=== PATIENT | female | born 1995 | race Caucasian/White ===

== ENCOUNTER 2020-10-05 13:22 | Observation (INO) | payer OTHER, SELFPAY ==
[2020-10-05 13:45] VITALS: TEMP 36.9; BMI 25.8
[2020-10-05 13:46] VITALS: BP 120/79; PULSE 107
[2020-10-05 14:54] LABS: Add Urine Microscopic? YES; Appearance Urine Clear (Clear); Bilirubin Urine Negative (Negative); Blood Urine Negative (Negative); Color Urine Straw (Yellow); Glucose Urine UA Negative (Negative); Ketones Urine Negative (Negative); Leukocyte Esterase Ur 1+ LEU/UL (Negative); Mucus Urine Rare /lpf; Nitrate Urine Negative (Negative); Protein Urine Negative (Negative); RBC Urine 0-2 /hpf (0-2); Specific Grav Ur 1.006 (1.001-1.035); Squamous Epithelial Cell Urine Few /hpf (Few); Urobilinogen Urine Negative mg/dL (<2.0); WBC Urine 0-3 /hpf
--- NOTE | 2020-10-05 16:59 | PC.NURSE ---
[id number] called, informed pt came in for possible leaking of fluid. ROM plus was negative, pt had contractions that spaced out drastically after PO hydration and urinating. UA is negative. Orders received to discharge pt home.
--- NOTE | 2020-10-05 18:25 | OBADM ---
This patient, Mirtha Woo, admitted to the OB room OB Post 115 for observation. Patient/family oriented to hospital policies and general routines including ID bracelet, bed and alarms, visiting hours, pain management, procedures, bathroom and other care routines, personal items, smoking policy, room service/diet, and visiting hours. Patient/Family are encouraged to report perceived risks to care and to ask questions if they do not understand what they are told or what they should do.
--- NOTE | 2020-10-31 19:04 | P.PNOB_ITS ---
OB - Triage/Final Diagnosis Visit Information Comments/Additional reasons for admission: I have assessed the risk for this patient, Mirtha Woo, and determined that she would benefit from observation care. Evaluation Laboratory results: Laboratory Tests 10/05/20 14:36 Urine Color Straw Urine Appearance Clear Urine pH 8.0 Ur Specific [place] 1.006 Urine Protein Negative Urine Glucose (UA) Negative Urine Ketones Negative Ur Blood (Man) Negative Urine Nitrate Negative Urine Bilirubin Negative Urine Urobilinogen Negative Leukocyte Esterase Rfl 1+ H Urine RBC 0-2 Urine WBC 0-3 Ur Squamous Epith Cells Few Urine Mucus Rare Final Diagnosis (1) Vaginal discharge during in third trimester: Code(s): O26.893 - Other specified related conditions, third trimester; N89.8 - Other specified noninflammatory disorders of vagina Status: Acute
== END 2020-10-05 16:35 | disposition home or self-care (01) ==
LOC: ANHOBOP 13:32 → ANHOBPP 13:32 → ANHOBOP 14:20 → ANHOBPP 14:20
PROVIDERS: Admitting Provider Obstetrics & Gynecology; PCP Internal Medicine; Visit Provider Obstetrics & Gynecology
DX: O26.893 Other specified pregnancy related conditions, third trimester (principal); N89.8 Other specified noninflammatory disorders of vagina; Z3A.33 33 weeks gestation of pregnancy
CPT/HCPCS: 81001; 84112; G0378; G0379

== ENCOUNTER 2020-10-31 17:10 | Outpatient (RCR) | payer OTHER, SELFPAY ==
[2020-10-31 18:42] VITALS: BP 111/69; PULSE 80
== END 2020-12-06 07:51 | disposition home or self-care (01) ==
LOC: ANHOBOP 17:10
PROVIDERS: PCP Internal Medicine; Referring Provider Obstetrics & Gynecology; Visit Provider Obstetrics & Gynecology
DX: O36.8130 Decreased fetal movements, third trimester, not applicable or unspecified (principal); Z3A.37 37 weeks gestation of pregnancy
CPT/HCPCS: 59025

== ENCOUNTER 2020-11-02 12:13 | Outpatient (CLI) | payer OTHER, SELFPAY ==
[2020-11-02 13:02] VITALS: BP 120/83; PULSE 105
== END 2020-11-02 13:15 | disposition home or self-care (01) ==
LOC: ANHOBOP 13:07 → ANHLDR 13:08
PROVIDERS: PCP Internal Medicine; Visit Provider Advanced Practice Midwife
DX: O42.02 Full-term premature rupture of membranes, onset of labor within 24 hours of rupture (principal); Z3A.37 37 weeks gestation of pregnancy
CPT/HCPCS: 59025; 84112; 99199

== ENCOUNTER 2020-11-06 19:39 | Inpatient (IN) | payer OTHER, SELFPAY ==
[2020-11-06] VITALS (17 sets, daily range): BP systolic 106–137; BP diastolic 61–99; PULSE 77–103; RESP 16–18; TEMP 36.6–36.9; BMI 27.4
--- NOTE | 2020-11-06 19:39 | LDADM ---
This patient, Mirtha Woo, was admitted to Labor/Delivery/Recovery 105 on 11/06/20 at 19:39. Plans for labor, pain management and were discussed with patient. Patient/family oriented to hospital policies and general routines including ID bracelet, bed and alarms, visiting hours, pain management, procedures, bathroom and other care routines, personal items, smoking policy, room service/diet and guest tray routines, infant security routines, and visiting hours. Patient/Family are encouraged to report perceived risks to care and to ask questions if they do not understand what they are told or what they should do. See OBIX for further documentation.
--- OUTSIDE RECORDS SUMMARY | 2020-11-06 20:13 | XMS_ITS | Encounter Summary ---
:1995 Author Care Team Providers Name Role Phone Pedro David Primary Care Provider [phone] Reason for Visit OB visit Assessment and Plan Assessment Note Patient is ___weeks . Discu ssed plan. 1. Routine care Discussion Note: None recorded.Patient educational handouts: No information available. Plan of Care Reminders Provider Appointments Ob Routine 11/11/2020 Meir Huddleston, 2:15PM CNM ? Ob Routine 11/15/2020 Rose Huddleston, 2:15PM CNM ? Ob Routine 11/22/2020 Rose Huddleston, 3:45PM CNM ? Well on or around Deb There se Woman-est 03/26/2021 MD Fuentes Lab None ? ? recorded. Referral None ? ? recorded. Procedures None ? ? recorded. Surgeries None ? ? recorded. Imaging None ? ? recorded. Medications Name Start Date ? ? ? valacyclovir 500 mg tablet ? Take 1 tablet every day by oral route. Medications Administered None recorded. Vitals Height Weight BMI Blood Pressure 5 ft 1 in 136 lbs 25.7 kg/m2 114/75 mm[Hg] Results Lab Results None recorded.
--- OUTSIDE RECORDS SUMMARY | 2020-11-06 20:13 | XMS_ITS | Encounter Summary ---
:1995 Author Care Team Providers Name Role Phone Pedro David Primary Care Provider [phone] Reason for Visit OB visit Assessment and [...] BMI Blood Pressure 5 ft 1 in 144 lbs 27.2 kg/m2 115/76 mm[Hg] Results Lab Results None recorded.
--- OUTSIDE RECORDS SUMMARY | 2020-11-06 20:13 | XMS_ITS | Encounter Summary ---
:1995 Author Care Team Providers Name Role Phone Pedro David Primary Care Provider [phone] Reason for Visit OB visit 37w5d Assessment and Plan 1. Routine care Discussion Note: None recorded.Patient educational handouts: No information available. Plan of Care Reminders Provider Appointments Ob Routine 11/11/2020 Meir Boykink, 2:15PM CNM ? Ob Routine 11/15/2020 Rose Panyik, 2:15PM CNM ? Ob Routine 11/22/2020 Rose Jensenyik, 3:45PM CNM ? Well on or around [...] BMI Blood Pressure 5 ft 1 in 149 lbs 28.2 kg/m2 118/79 mm[Hg] Results Lab Results None recorded. Allergies Code Code System Name Reaction Severity Onset
--- OUTSIDE RECORDS SUMMARY | 2020-11-06 20:13 | XMS_ITS ---
:1995 Author Care Team Providers Name Role Phone HANK VASQUEZ Primary Care Provider [phone] Allergies Code Code System Name Reaction Severity Status Onset NKDA ? Medications Name Status Start Date Stop Date ? ? alprazolam 0.25 mg tablet Completed ? 2020 TK 1 T PO BID PRN alprazolam 0.5 mg tablet Completed ? TAKE 1 TABLET BY MOUTH TWICE DAILY NEEDED azithromycin 250 mg tablet Completed ? 09/27 azithromycin 500 mg tablet Completed ? 06/11 TAKE 2 TABLETS BY MOUTH AT THE SAME TIME cephalexin 500 mg capsule Completed ? 2020 cyclobenzaprine 5 mg tablet Completed ? 03/06 dextroamphetamine-amphetamine 20 mg tablet Completed ? 03/26/2020 TK 1 TABSULE ONCE A DAY dextroamphetamine-amphetamine ER 20 mg 24hr capsule,extend relea se Completed ? 03/26/2020 TK 1 C PO ONCE D IN THE MORNING fluconazole 150 mg tablet Completed ? 2020 TAKE 1 TABLET BY MOUTH EVERY DAY gabapentin Completed ? 03/26/2020 gabapentin 100 mg capsule Completed ? 2020 ID NOW COVID-19 Test Kit Completed ? TEST DIRECTED lithium carbonate ER 300 mg tablet,extended release Completed ? 03/26/2020 TK 1 T PO IN THE MORNING AND 2 TS PO IN THE EVENING Lithobid Completed ? 03/26/2020 medroxyprogesterone 150 mg/mL Completed ? intramuscular syringe metaxalone 800 mg tablet Completed ? metoclopra
--- OUTSIDE RECORDS SUMMARY | 2020-11-06 20:13 | XMS_ITS | Encounter Summary ---
:1995 Author Care Team Providers Name Role Phone Pedro David Primary Care Provider [phone] Reason for Visit None recorded. Assessment and Plan 1. condition affecting obs tetrical care of mother ? US, obstetric, follow-up Discussion Note: None recorded.Patient educational handouts: No information available. Plan of Care Reminders Provider Appointments Ob Routine 11/11/2020 Meir Huddleston, 2:15PM CNM ? Ob Routine 11/15/2020 Rose Boykink, 2:15PM CNM ? Ob Routine 11/22/2020 Rose Boykink, 3:45PM CNM ? Well on or around Deb There se Woman-est 03/26/2021 MD Fuentes Lab None ? ? recorded. Referral None ? ? recorded. Procedures None ? ? recorded. Surgeries None ? ? recorded. Imaging US, 08/26/2020 [facility], Follow-up Medications Name Start Date ? ? ? valacyclovir 500 mg tablet ? Take 1 tablet every day by oral route. Medications Administered None recorded. Vitals None recorded. Results Lab Results None recorded. Allergies Code Code System Name Reaction Severity Onset
--- OUTSIDE RECORDS SUMMARY | 2020-11-06 20:13 | XMS_ITS | Encounter Summary ---
:1995 Author Care Team Providers Name Role Phone Pedro David Primary Care Provider [phone] Reason for Visit OB visit pt is here today for 32 week ob visit. Assessment and Plan Assessment Note Patient is ___weeks . Discu ssed plan. 1. Genital herpes simplex ? Valtrex 500 mg tablet Discussion Note: None recorded.Patient educational handouts: No [...] BMI Blood Pressure 5 ft 1 in 141 lbs 26.6 kg/m2 106/70
--- OUTSIDE RECORDS SUMMARY | 2020-11-06 20:13 | XMS_ITS | Encounter Summary ---
:1995 Author Care Team Providers Name Role Phone Pedro David Primary Care Provider [phone] Reason for Visit OB visit GBS today 36w4d Assessment and Plan 1. Routine care Discussion Note: None recorded.Patient educational handouts: No information available. Plan of Care Reminders Provider Appointments Ob Routine 11/11/2020 Meir Huddleston, 2:15PM CNM ? Ob Routine 11/15/2020 Rose Jensenyik, 2:15PM CNM ? Ob Routine 11/22/2020 Rose [...] BMI Blood Pressure 5 ft 1 in 147 lbs 27.8 kg/m2 107/72 mm[Hg] Results Lab Results None recorded. Allergies Code Code System Name Reaction Severity Onset
--- OUTSIDE RECORDS SUMMARY | 2020-11-06 20:13 | XMS_ITS | Encounter Summary ---
:1995 Author Care Team Providers Name Role Phone Pedro David Primary Care Provider [phone] Reason for Visit OB visit Assessment and [...] BMI Blood Pressure 5 ft 1 in 139 lbs 26.3 kg/m2 100/67 mm[Hg] Results Lab Results None recorded.
[2020-11-06] MEDS: LACTATED RINGERS 1,000 ML 125 ML IV CONT (21:11)
[2020-11-06] MEDS: OXYTOCIN 30 UNITS/NS 500 ML 30 UNITS/500 ML BAG 6 UNITS IV CONT (21:12)
[2020-11-06 21:15] LABS: Basophils Percent Auto 0.3 % (0.2-1.2); Eosinophils Absolute Auto 0.1 K/mm3 (0-0.3); Eosinophils Percent Auto 0.8 % (0-4.4); Hematocrit 38.1 % (37.0-47.0); Hemoglobin 12.2 g/dL (12.0-15.0); Immature Granulocyte Absolute 0.06 K/mm3 (0.00-0.031); Immature Granulocyte Percent A 0.6 % (0-0.5); Lymphocytes Absolute Auto 1.95 K/mm3 (0.9-3.2); Lymphocytes Percent Auto 18.5 % (18.3-44.2); Mean Corpuscular Hemoglobin 26.1 pg (26-34); Mean Corpuscular Volume 81.4 fl (80-100); Mean Platelet Volume 10.9 fl (7.4-10.4); Monocytes Percent Auto 9.8 % (2.6-8.5); Neutrophils Absolute Auto 7.4 K/mm3 (1.3-6.7); Platelet Count Result 233 k/mm3 (150-375); Red Blood Count 4.68 M/mm3 (4.2-5.4); Red Cell Distribution Width 13.2 % (11.5-14.5); White Blood Count 10.5 K/mm3 (4.5-10.0)
[2020-11-06 23:45] LABS: Amphetamine Screen Urine Negative (Negative); Barbiturate Screen Urine Negative (Negative); Benzodiazepines Screen Urine Negative (Negative); Cannabinoid Screen Urine Negative (Negative); Cocaine Screen Urine Negative (Negative); Methadone Screen Urine Negative (Negative); Opiate Screen Urine Negative (Negative); Phencyclidine Screen Urine Negative (Negative)
[2020-11-07] VITALS (165 sets, daily range): BP systolic 86–135; BP diastolic 25–88; PULSE 47–196; RESP 14–18; TEMP 36.2–37.1; O2SAT 82–100
[2020-11-07] MEDS: fentaNYL CITRATE INJ (*CRX) 100 MCG/2 ML VIAL 50 MCG IV PUSH (03:38)
[2020-11-07] MEDS: fentaNYL CITRATE INJ (*CRX) 100 MCG/2 ML VIAL IV PUSH (04:39)
[2020-11-07] MEDS: LACTATED RINGERS 1,000 ML 125 ML IV CONT ×2 (05:05→08:56)
--- NOTE | 2020-11-07 06:21 | WPDANESEPP ---
Anes - Eval Pre Procedure Procedure: labor epidural Date/Time: 11/07/20 06:21 Surgeon: sherly Preop Diagnosis: pain during labor Pre Op Diagnosis: ROM Patient Data Age: 24 Gender: F Height: 1.57 m Weight: 68.1 kg Last Vital Signs Temp 36.8 C 11/07/20 05:44 Pulse 82 11/07/20 06:18 Resp 18 11/07/20 05:44 BP 122/77 11/07/20 06:18 Pulse Ox 96 11/07/20 06:20 Allergies Allergy/AdvReac Type Severity Reaction Status Date / Time No Known Allergies Allergy Unverified 10/27/17 16:40 Home Medications Medication Instructions Recorded Confirmed Type PNV cmb#95-ferrous fumarate-FA 1 tablet PO DAILY 10/18/20 10/18/20 History [] valacyclovir [Valtrex] 500 mg PO DAILY 10/18/20 10/18/20 History Laboratory Tests 11/06/20 11/06/20 11/06/20 21:02 21:02 21:02 WBC 10.5 K/mm3 H K/mm3 (4.5-10.0) RBC 4.68 M/mm3 M/mm3 (4.2-5.4) Hgb 12.2 g/dL g/dL (12.0-15.0) Hct 38.1 % % (37.0-47.0) MCV 81.4 fl fl (80-100) MCH 26.1 pg pg (26-34) MCHC 32.0 g/dl g/dl (32-36) RDW 13.2 % % (11.5-14.5) Plt Count 233 k/mm3 k/mm3 (150-375) MPV 10.9 fl H fl (7.4-10.4) Immature Gran % (Auto) 0.6 % H % (0-0.5) Neut % (Auto) 70.0 % % (45.5-73.1) Lymph % (Auto) 18.5 % % (18.3-44.2) [place] % (Auto) 9.8 % H % (2.6-8.5) Eos % (Auto) 0.8 % % (0-4.4) Baso % (Auto) 0.3 % % (0.2-1.2) Lymph # (Auto) 1.95 K/mm3 K/mm3 (0.9-3.2) [place] # (Auto) 1.0 K/mm3 H K/mm3 (0.1-0.6) Eos # (Auto) 0.1 K/mm3 K/mm3 (0-0.3) Baso # (Auto) 0.0 K/mm3 K/mm3 (0.0-0.1) Abs Immat Gran (auto) 0.06 K/mm3 H K/mm3 (0.00-0.031) Absolute Neuts (auto) 7.4 K/mm3 H K/mm3 (1.3-6.7) Absolute Nucleated RBC 0.0 K/mm3 K/mm3 (0.0-0.012) Nucleated RBC % 0.0 % % (0.0-0.2) Urine Opiates Screen Urine Methadone Screen Ur Barbiturates Screen Ur Phencyclidine Scrn Ur Amphetamine Screen U Benzodiazepines Scrn Urine Cocaine Screen U Cannabinoids Screen RPR Pending Blood Type A Positive Antibody Screen Negative 11/06/20 23:19 WBC RBC Hgb Hct MCV MCH MCHC RDW Plt Count MPV Immature Gran % (Auto) Neut % (Auto) Lymph % (Auto) [place] % (Auto) Eos % (Auto) Baso % (Auto) Lymph # (Auto) [place] # (Auto) Eos # (Auto) Baso # (Auto) Abs Immat Gran (auto) Absolute Neuts (auto) Absolute Nucleated RBC Nucleated RBC % Urine Opiates Screen Negative (Negative) Urine Methadone Screen Negative (Negative) Ur Barbiturates Screen Negative (Negative) Ur Phencyclidine Scrn Negative (Negative) Ur Amphetamine Screen Negative (Negative) U Benzodiazepines Scrn Negative (Negative) Urine Cocaine Screen Negative (Negative) U Cannabinoids Screen Negative (Negative) RPR Blood Type Antibody Screen Patient hx anesthesia problems: none Family hx anesthesia problems: none PMFSH Past Medical History Medical History (Updated 11/07/20 @ 06:22 by Ann Tabor CRNA) Intrauterine Family History Family History Other No pertinent family history Social History Social History Smoking status: Former smoker Substance use: never Gender identity (if verbalized by the patient): Female Spiritual care concerns: No Exam Day of Procedure 11/07/20 06:21
[2020-11-07] MEDS: AMPICILLIN 2 GM/NS 100 ML 2 GM/100 ML BAG IVPB (08:56)
[2020-11-07] MEDS: ONDANSETRON INJ 4 MG/2 ML VIAL IV PUSH (08:56)
[2020-11-07] MEDS: valACYclovir HCL 500 MG TABLET PO (08:59)
--- NOTE | 2020-11-07 09:45 | WPDOBADMIT ---
Obstetrics - Admit Note Admission Note: record reviewed. No pertinent additions to the history and/or any subsequent changes in the physical findings that are not consistent with the expected course of the were found. SROM at home Additions to the history and/or subsequent changes in the physical findings follow. None.
[2020-11-07] MEDS: AMPICILLIN 1 GM/NS 50 ML 1 GM/50 ML BAG IVPB (13:14)
--- NOTE | 2020-11-07 13:52 | PM.OBPRVD ---
OB - Delivery Note Procedure Delivery date: 11/07/20 Procedure: vaginal delivery events: Prolonged Rupture of Membrane Intrapartal events: None Induction method: none Delivery augmentation: pitocin Delivery monitor: external FHT and external uterine Route of delivery: Laceration Description: Perineal - 1st Degree Delivery repair: vicryl Specimen: Yes Quantitative Blood Loss (ml): 80 Anesthesia type: Epidural Disposition: floor Baby Date of : 11/07/20 Time of : 13:34 Weeks of gestation at delivery: 38 Infant gender: Female Weight (pounds): 7 Weight (ounces): 13 presentation: vertex position: Left Occiput Transverse Placenta delivery description: Spontaneous cord vessel description: 3 Vessels, Clamped/Cut and Delayed Cord Clamping score one minute: 9 score five minutes: 9 Narrative: mother and baby skin to skin in stable condition
[2020-11-07] MEDS: BENZOCAINE 20% AER SPR (*SP) 56 GM CAN 1 SPRAY TOPICAL (16:20)
[2020-11-07] MEDS: WITCH HAZEL 40 PADS 1 PAD TOPICAL (16:20)
[2020-11-07] MEDS: IBUPROFEN 600 MG TABLET PO ×2 (16:23→23:25)
--- NOTE | 2020-11-07 18:30 | PC.NURSE ---
Patient's IV bag of Oxytocin 30 units/Ns 500 mL @ 125 ml/hr was finished at 1830 and the patient was saline locked. This bag was not scanned in the MAR after her delivery so I was unable to chart the completion of the infusion in the MAR.
[2020-11-07] MEDS: ACETAMINOPHEN 325 MG TABLET 650 MG PO (21:50)
[2020-11-08 04:04] VITALS: BP 101/56; PULSE 62; RESP 16; TEMP 36.1; O2SAT 100
[2020-11-08 05:16] LABS: Hematocrit 33.2 % (37.0-47.0); Hemoglobin 10.6 g/dL (12.0-15.0)
[2020-11-08] MEDS: IBUPROFEN 600 MG TABLET PO ×3 (05:42→18:52)
[2020-11-08 08:05] VITALS: BP 107/71; PULSE 78; RESP 18; TEMP 37; O2SAT 100
[2020-11-08 09:00] VITALS: PULSE 78; RESP 18; O2SAT 100
[2020-11-08] MEDS: valACYclovir HCL 500 MG TABLET PO (09:00)
--- NOTE | 2020-11-08 09:15 | PC.NURSE ---
Mother called out for assist with feeding, reporting she is using a nipple shield for all feeding due to flat nipples. Mother is supplementing after all feeding and pumping using her pump from home. Mother reports she is not pumping after all feedings. is able to freely thrust tongue past gum ridge and flange both lips. Skin is intact on both nipples, no redness and bruising noted. Discussed nipple shield precautions and possible complications. Instructions given on application and cleaning of shield. Patient able to return demonstration on proper application of shield. Discussed the need for regular pumping if infant continues to nurse with the shield, once infant is able to gain weight and empty breast pumping can be discontinued. Patient verbalizes understanding. Reviewed weaning techniques from shield. Reviewed infant feeding cues, frequencies, duration of feedings, feeding elimination flow sheet, and signs of adequate intake. Mother is attempting infant to breast in cradle positioning, wrapped in two blankets. Suggested to unwrap and attempt using cross cradle. Demonstrated stimulation techniques to wake infant for feeding. Assisted with infant to breast. Reviewed positioning/alignment in cross cradle, holding breast in ?U? hold and guided asymmetrical latch on. Discussed rational for each. able to latch correctly. Reviewed signs of a correct latch, effective nursing and suck swallow ratio. Infant nursed eagerly, with steady draws and frequent swallowing noted. Reviewed the difference of effective vs ineffective nursing. Suggested mother stimulate while feeding to increase stimulation, increase intake and to assist with maintaining deep latch. Infant was able to maintain latch without discomfort to mother. Demonstrated how to adjust latch more deeply while feeding if slips to shallow latch while feeding. Nipple care reviewed of lanolin after feedings, warm compresses as needed.
--- NOTE | 2020-11-08 09:34 | P.PNOB_ITS ---
OB - PN: Subj Subjective Date/time seen: 11/08/20 09:34 Patient comments: no complaints baby status: doing well [place] feeding status: breast and bottle feeding OB - PN: Obj Data Labs CBC & Chem 7: 11/08/20 03:38 Labs: Laboratory Results - last 24 hr 11/08/20 03:38 Hgb 10.6 L Hct 33.2 L OB - PN A/P Plan day: 1 Plan: routine care Time Spent With Patient Time: Total time spent is greater than 50% in coordination of care (as documented) at patient's floor/unit and/or counseling patient: Review of Systems Review of Systems: All systems reviewed & are unremarkable except as noted in HPI and below Exam Const: General: cooperative and healthy appearing Or ientation/consciousness: patient oriented x3 Psych: Thought process: Normal thought process present Insight: Good insight present (Psych) Judgement: Good judgement present (Psych)
[2020-11-08 12:01] VITALS: BP 111/63; PULSE 94; RESP 18; TEMP 36.6; O2SAT 100
[2020-11-08] MEDS: MULTIVIT/MIN/PREN/FOL AC/IRON TABLET 1 TAB PO (12:23)
[2020-11-08] MEDS: DOCUSATE SODIUM 100 MG CAPSULE PO ×2 (12:23→17:16)
[2020-11-08 12:49] VITALS: PULSE 94; RESP 18; O2SAT 100
[2020-11-08] MEDS: ACETAMINOPHEN 325 MG TABLET 650 MG PO (17:16)
[2020-11-08 19:05] VITALS: BP 98/69; PULSE 66; RESP 16; TEMP 36.7; O2SAT 100
[2020-11-09] MEDS: ACETAMINOPHEN 325 MG TABLET 650 MG PO (01:59)
--- NOTE | 2020-11-09 07:34 | P.DS_ITS ---
DS: Admitting Diagnosis Admitting Diagnosis labor DS: Discharge Diagnosis Discharge Diagnosis (1) Term delivered: Code(s): O80 - Encounter for full-term uncomplicated delivery Status: Acute OB - DS: Summary OB Procedures : None OB Procedures Intrapartum: Spontaneous Vag Delivery OB Procedures: : None Time Spent with Patient Time attestation: Total time spent providing and/or coordinating discharge se rvices: DS: Data Data Completed and Pending Pending studies at discharge: Pending at discharge 11/07/20 13:40 Surgical [PTH] Routine Discharge Plan Discharge Discharging Clinician: Berenice Marcus Patient Disposition: Home, Self-Care Activity: pelvic rest Diet: regular Patient Instructions: Antibiotic Form Stand Alone Forms: General Discharge Information Follow-up/Referrals: Berenice Marcus MD [Physician] - Discharge Medications: Continued valacyclovir [Valtrex] 500 mg Tablet 500 mg PO DAILY RF: 0 PNV cmb#95-ferrous fumarate-FA [] 28 mg iron- 800 mcg Tablet 1 tablet PO DAILY RF: 0 Date of admission: 11/06/20 19:39 Primary Care Provider: Frankie,Pedro Hoff Admitting Provider: Berenice Marcus Attending physician on admission: Berenice Marcus Condition: Stable
--- NOTE | 2020-11-09 07:34 | PM.OBPNVD ---
OB - PN: Subj Subjective Date/time seen: 11/09/20 07:34 Patient comments: no complaints, pain well controlled and tolerating diet OB - PN: Obj Data Labs CBC & Chem 7: 11/08/20 03:38 OB - PN A/P Plan day: 2 Plan: routine care and discharge home Time Spent With Patient Time: Total time spent is greater than 50% in coordination of care (as documented) at patient's floor/unit and/or counseling patient: Exam Const: General: comfortable and no acute distress Resp: Effort & Inspection: normal respiratory effort Auscultation: no rales, no rhonchi and no wheezes Cardio: Rate: regular rate Heart sounds: no click, no murmurs and no rubs GI: GI Palp: Yes Soft to palpation and No Tenderness to palpation present (GI) Auscultation: normal bowel sounds Extrem: General: normal to inspection, no pedal edema and no calf tenderness
[2020-11-09 07:50] VITALS: BP 112/76; PULSE 75; RESP 16; TEMP 37.2; O2SAT 100
[2020-11-09] MEDS: IBUPROFEN 600 MG TABLET PO (10:02)
[2020-11-09] MEDS: MULTIVIT/MIN/PREN/FOL AC/IRON TABLET 1 TAB PO (10:02)
[2020-11-09] MEDS: DOCUSATE SODIUM 100 MG CAPSULE PO (10:03)
[2020-11-09] MEDS: valACYclovir HCL 500 MG TABLET PO (10:07)
[2020-11-09 10:30] LABS: Rapid Plasma Reagin Non-Reactive (NonReactive)
--- NOTE | 2020-11-09 10:30 | PC.NURSE ---
Mother is able to independently latch with appropriate positioning/alignment using nipple shield. She denies any nipple discomfort, is feeding as required and waking to feed if needed. Infant is feeding as required with supplementation after all feedings and and is currently meeting outcomes for weight, output, jaundice and feeding frequencies. Mother states she feels confident to continue current feeding plan at home. Mother is pumping using her own pump, advised to pump after each feeding until her milk well established. Discussed may wish to increase supplementation after , advised to increase as infant desires. Infant may not want to feed for 4 hours with increased supplementation, mother will pump on infant feeding schedule increasing sessions to 20 minutes if pumping every four hours. Once mother's milk is well established may want to decrease supplementation, advised not to discontinue supplement until infant has a pre post feeding evaluation by ICP, Follow up RN or LC. Mother voices understanding and rational. Reviewed shield use, cleaning and weaning techniques. Reviewed once infant is effectively using shield and gaining weight without supplementation, mother can wean pumping. Reviewed transition to breast milk, signs of adequate intake, and engorgement/relief. Instructed to call ICP if intake/output less than required. Reviewed regular medications mother is taking. Information provided per [place]. Reviewed community resources on the [facility] website and in the Mom/Baby guide. Information on outpatient services provided. Mother has no further questions at this time.
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
[2020-11-11 12:06] VITALS: BP 121/82; PULSE 90; RESP 20; TEMP 37.2; O2SAT 100
== END 2020-11-09 14:06 | disposition home or self-care (01) | DRG 806 ==
LOC: ANHLDR 20:24 → ANHOB2 11-07 17:40
PROVIDERS: Admitting Provider Obstetrics & Gynecology; PCP Internal Medicine; Referring Provider Advanced Practice Midwife; Visit Provider Obstetrics & Gynecology
DX: O42.92 Full-term premature rupture of membranes, unspecified as to length of time between rupture and onset of labor (principal); O98.32 Other infections with a predominantly sexual mode of transmission complicating childbirth; Z37.0 Single live birth; Z3A.38 38 weeks gestation of pregnancy; O70.0 First degree perineal laceration during delivery; A60.00 Herpesviral infection of urogenital system, unspecified; Z87.820 Personal history of traumatic brain injury; Z91.410 Personal history of adult physical and sexual abuse; O99.344 Other mental disorders complicating childbirth; F31.9 Bipolar disorder, unspecified; A56.8 Sexually transmitted chlamydial infection of other sites
CPT/HCPCS: 36415; 80307; 84112; 85014; 85018; 85025; 86592; 86850; 86900; 86901; 88307; A9270; J0290; J2405; J2590; J3010; J7120

== ENCOUNTER 2022-08-07 10:05 | Emergency (ER) | payer OTHER, SELFPAY ==
--- NOTE | ~2022-08-07 | XR_ITS ---
Left ankle Technique: AP, oblique, and lateral views were obtained. Clinical History: Pain Findings: No acute fracture or dislocation is seen. Osseous alignment is anatomic. Ankle mortise and other visualized joint spaces are preserved. Soft tissues are otherwise unremarkable. Impression: Unremarkable left ankle. Reviewed, dictated and finalized at location . Impression: Unremarkable left ankle.
[2022-08-07 10:26] VITALS: BP 110/55; PULSE 78; RESP 16; TEMP 36.2; O2SAT 100
--- NOTE | 2022-08-07 11:07 | ED.LOWEXIN ---
HPI - Extremity Injury (Lower) General Chief Complaint: Extremity Injury, Lower Stated Complaint: left ankle injury Time Seen by Provider: 08/07/22 10:55 History of Present Illness HPI Narrative: 26-year-old female reports for evaluation of left ankle pain x1 day. Patient says she was getting at the pool, misstepped and rolled her left ankle. States since then she has had worsening pain at the top of her ankle. She denies other injuries during the fall. Did not hit her head or lose consciousness. She has not taken anything for pain. Related Data Home Medications Medication Instructions Recorded Confirmed ferrous sulfate 325 mg (65 mg 325 mg PO DAILY 06/23/22 06/23/22 iron) tablet (Iron (ferrous sulfate)) Allergies Allergy/AdvReac Type Severity Reaction Status Date / Time cephalexin [From Keflex] AdvReac Mild Unknown Verified 08/07/22 11:00 Review of Systems Review of Systems: CONSTITUTIONAL: Denies fever, chills EYES: Denies visual changes, redness, or discharge. ENT: Denies rhinorrhea, congestion, sore throat, or otalgia. CARDIOVASCULAR: Denies chest pain, palpitations, or edema. RESPIRATORY: Denies cough or dyspnea. GASTROINTESTINAL: Denies abdominal pain, nausea, vomiting, or diarrhea. GENITOURINARY: Denies dysuria or hematuria. SKIN: Denies rash or itching. MUSCULOSKELETAL: See HPI NEUROLOGIC: Denies headache, numbness, dizziness, or weakness. PSYCHIATRIC: Denies anxiety or depression. [facility] Past Medical History Medical History ADD (attention deficit disorder) Bipolar 1 disorder Intrauterine Term delivered Vaginal discharge during in third trimester Family History Family History Other No pertinent family history Social History Social History Years smoked: 1 Smoking status: Former smoker Tobacco type: cigarettes Alcohol intake: current Alcohol use details: occasional Substance use: never Substance use type: does not use Lack of Transportation: No Lack of Food: Never True Current Housing: I Have Housing Concerned About Future Housing: No Difficulty Paying Gas/Electric Bills: No Difficulty Paying for Meds: No Currently Unemployed: No Education: Trade/Vocational Certificate Difficulty w/ Childcare or Family Care: No Living arrangements: with family Occupation/Education: occupation 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 HEAD: Normocephalic NECK: Supple. CHEST: No respiratory distress. Clear to auscultation, no adventitious breath sounds. HEART: Regular rate and rhythm. No murmur heard. Normal peripheral pulses. EXTREMITIES: Left ankle with tenderness to the superior aspect of the ankle. No tenderness to the malleoli, Achilles, foot. Full range of motion of ankle and toes. No edema or ecchymosis. DP pulse 2+. Cap fill refill less than 2. Sensation intact. SKIN: Warm, dry, no rash. NEURO: No focal deficits. Alert and oriented x3. PSYCH: Normal mood and affect. Course Vital Signs Vital signs: Vital Signs Temperature 97.2 F L 08/07/22 10:26 Pulse Rate 78 08/07/22 10:26 Respiratory Rate 16 08/07/22 10:26 Blood Pressure 110/55 L 08/07/22 10:26 Pulse Oximetry 100 08/07/22 10:26 Temperature 97.2 F L 08/07/22 10:26 Pulse Rate 78 08/07/22 10:26 Respiratory Rate 16 08/07/22 10:26 Blood Pressure 110/55 L 08/07/22 10:26 Pulse Oximetry 100 08/07/22 10:26 MDM - Extremity Injury (Lower) MDM Narrative Medical decision making narrative: 26-year-old female repor
[2022-08-07 11:25] VITALS: BP 110/60; PULSE 80; RESP 16; TEMP 36.6; O2SAT 100
== END 2022-08-07 11:28 | disposition home or self-care (01) ==
LOC: ANHED 11:18
PROVIDERS: Emergency Provider Physician Assistant; PCP Physician Assistant Medical
DX: S93.402A Sprain of unspecified ligament of left ankle, initial encounter (principal); S96.912A Strain of unspecified muscle and tendon at ankle and foot level, left foot, initial encounter; X50.0XXA Overexertion from strenuous movement or load, initial encounter; Z87.891 Personal history of nicotine dependence
CPT/HCPCS: 73610; 99283

== ENCOUNTER 2022-10-29 15:32 | Emergency (ER) | payer BC, SELFPAY ==
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
[2022-10-29 15:34] VITALS: BP 131/79; PULSE 92; RESP 18; TEMP 36.4; O2SAT 99
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
[2022-10-29] MEDS: CYCLOBENZAPRINE HCL 5 MG TABLET 10 MG PO (17:02)
[2022-10-29] MEDS: ACETAMINOPHEN 500 MG TABLET 1000 MG PO (17:03)
== END 2022-10-29 18:46 | disposition home or self-care (01) ==
PROVIDERS: Emergency Provider Emergency Medicine; PCP Physician Assistant Medical
DX: S09.90XA Unspecified injury of head, initial encounter (principal); M54.2 Cervicalgia; Z87.891 Personal history of nicotine dependence; Y04.2XXA Assault by strike against or bumped into by another person, initial encounter
CPT/HCPCS: 70450; 72125; 99284; A9270

== ENCOUNTER 2024-03-22 09:25 | Observation (INO) | payer BC, SELFPAY ==
--- NOTE | ~2024-03-22 | US_ITS ---
EXAMINATION: US OB limited DATE: 03/22/2024 11:37 INDICATION: Spotting. Second trimester. TECHNIQUE: Real-time ultrasound of the pelvis was performed. COMPARISON: None. FINDINGS: There is a single fetus in vertex presentation. The placenta is posterior. heart rate is 141 b eats per minute (bpm). The amniotic fluid volume is subjectively normal. IMPRESSION: 1. Single living fetus in vertex presentation. Reviewed, dictated and finalized at location A. 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
[2024-03-22 10:05] VITALS: BP 95/58; PULSE 79; RESP 16; TEMP 36.3; BMI 25.6
--- NOTE | 2024-03-22 10:06 | OBADM ---
This patient, Mirtha Woo, admitted to the OB room 116 for observation. Patient/family oriented to hospital policies and general routines including ID bracelet, bed and alarms, visiting hours, pain management, procedures, bathroom and other care routines, personal items, smoking policy, room service/diet, and visiting hours. Patient/Family are encouraged to report perceived risks to care and to ask questions if they do not understand what they are told or what they should do.
[2024-03-22 10:30] VITALS: BP 109/67; PULSE 84
[2024-03-22 11:00] VITALS: BP 100/60; PULSE 76
[2024-03-22 11:01] LABS: Add Urine Microscopic? YES; Appearance Urine Clear (Clear); Bacteria Urine None Seen /hpf; Bilirubin Urine Negative (Negative); Blood Urine 2+ (Negative); Color Urine Yellow (Yellow); Glucose Urine UA Negative (Negative); Ketones Urine Negative (Negative); Leukocyte Esterase Ur Negative LEU/UL (Negative); Nitrate Urine Negative (Negative); Non Pathogenic Casts 0-2; Protein Urine Negative (Negative); Squamous Epithelial Cell Urine None Seen /hpf (Few); Urobilinogen Urine 0.2 mg/dL (<2.0); WBC Urine 0-5 /hpf (0-3)
--- NOTE | 2024-03-22 11:21 | P.HP_ITS ---
H&P: HPI History of Present Illness Date/Time: 03/22/24 11:21 Chief Complaint: Vaginal bleeding Narrative: this patient is a 28-year-old multiparous female at 24 weeks gestation who postcoital bleeding episode. She denies any contractions, loss of fluid. She had some light bleeding. Greater than spotting. She denies any nausea, vomiting, fever, chills. She denies any chest pain or shortness of breath. Denies any headache, blurry vision, epigastric pain. Review of Systems Review of Systems: All systems reviewed & are unremarkable except as noted in HPI and below Constitutional: Constitutional: Denies chills, Denies fatigue, Denies fever(s) and Denies weakness Eyes: Eyes: Denies blurry vision, Denies change in vision, Denies loss of peripheral vision, Denies loss of vision, Denies other visual disturbances and Denies eye pain ENT: Denies vertigo, Denies dizziness, Denies hearing loss, Denies mouth pain, Denies nasal obstruction, Denies neck mass and Denies neck pain Cardiovascular: Cardiovascular: Denies chest pain, Denies diaphoresis, Denies syncope, Denies leg edema and Denies dyspnea Respiratory: Respiratory: Denies chest congestion, Denies cough, Denies hemoptysis, Denies dyspnea and Denies wheezing Gastrointestinal: Gastrointestinal: Denies abdominal pain, Denies constipation, Denies diarrhea, Denies nausea and Denies vomiting Genitourinary: Genitourinary: Denies hematuria, Denies change in libido, Denies nocturia, Denies genital lesions, Denies flank pain and Denies urinary urgency Musculoskeletal: Musculoskeletal: Denies abnormal gait, Denies back pain, Denies myalgias, Denies arthralgias, Denies joint swelling, Denies muscle weakness and Denies neck pain Integumentary/Breasts: Skin/Breast: Denies swelling, Denies breast pain, Denies breast mass, Denies dry skin, Denies nipple discharge, Denies unusual bruising and Denies jaundice Neurologic: Denies Neuro-related abnormal movements, Denies Abnormal speech present, Denies abnormal gait, Denies behavioral changes, Denies confusion, Denies vertigo, Denies dizziness, Denies syncope, Denies loss of vision, Denies memory loss, Denies convulsions and Denies weakness Psychiatric: Psychiatric: Denies abnormal sleep pattern, Denies behavioral changes, Denies change in libido, Denies confusion, Denies depression, Denies anhedonia and Denies memory loss Endocrine: Endocrine: Reports no additional endocrine complaints, Denies change in libido and Denies fatigue Hematologic/Lymphatic: Hematologic/Lymphatic: Reports no additional hematologic/lymphatic complaints Allergic/Immunologic: Allergic/Immunologic: Reports no additional al lergic/immunologic complaints and Denies wheezing PMFSH Past Medical History Medical History Encephalomalacia Herpes simplex Bipolar 1 disorder ADD (attention deficit disorder) Term delivered Intrauterine Vaginal discharge during in third trimester Surgical History Surgical History No pertinent past surgical history Family History Family History Other No pertinent family history Social History Social History Years smoked: 1 Smoking status: Former smoker Tobacco type: cigarettes Alcohol intake: current Alcohol use details: occasional Substance use: never Substance use type: does not use Lack of Transportation: No Lack of Food: Never True Current Housing: I Have Housing Concerned About Future Housing: No Difficulty Paying Gas/Electric Bills: No Difficulty Paying for Meds: No Currently Unemployed: No Education: Trade/Vocational Certificate Difficulty w/ Childcare or Family Care: No Living arrangements: with family Occupation/Education: occupation 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 Gender identity (if verbalized by the patient): Female Sexual Orientation (if Verbalized by the Patient): Straight or Heterosexual Spiritual care concerns: No Meds Home Medications and Allergies Home Medications ?Medication ?Instructions ?Recorded ?Confirmed ?Type ferrous sulfate 325 mg (65 mg 325 mg PO DAILY 06/23/22 03/22/24 History iron) tablet (Iron (ferrous sulfate)) valacyclovir 500 mg tablet 500 mg PO DAILY #90 tabs 11/24/22 03/22/24 Rx vit no.95-ferrous 1 tablet PO DAILY 03/22/24 03/22/24 History fumarate 28 mg-folic acid 800 mcg tablet () Allergies Allergy/AdvReac Type Severity Reaction Status Date / Time cephalexin (From Keflex) AdvReac Mild Unknown Verified 03/22/24 09:49 Vital Signs Vital Signs - 24 hr 03/22/24 10:05 03/22/24 10:05 03/22/24 10:30 Pulse Rate 79 84 Blood Pressure 95/58 L 109/67 Oxygen Delivery Room Air 03/22/24 11:00 Pulse Rate 76 Blood Pressure 100/60 Oxygen Delivery Exam Const: General: cooperative, healthy appearing, comfortable and no acute distress Orientation/consciousness: oriented to person, oriented to place and oriented to time HENMT: Head: normal to inspection Ears: external ears normal Face/Nos e/Sinus: Normal external nose present and normal facial exam Face and sinus: normal facial exam Eyes: General: appearance normal, both eyes and all related structures Neck: Neck: normal visual inspection, trachea midline and supple Resp: Auscultation: clear to auscultation bilaterally, no crackles, no rales, no rhonchi and no wheezes Cardio: Rate: regular rate Rhythm: regular rhythm Heart sounds: no click, no murmurs and no rubs GI: GI Palp: No abdominal tenderness, No Soft to palpation, No Tenderness to palpation present (GI) and No Palpable mass present Auscultation: normal bowel sounds Skin: General skin exam: normal color and no rashes or lesions noted Neuro: General: oriented to person, oriented to place and oriented to time Extrem: General: normal to inspection, no joint enlargement, no clubbing, cyanosis or edema, no pedal edema and no calf tenderness Psych: Appearance: grossly normal Mental Status: mental status grossly normal Speech and movement: Normal speech and movement present Assessment and Plan Assessment and plan (1) Vaginal bleeding during , antepartum: Code(s): O46.90 - Antepartum hemorrhage, unspecified, unspecified trimester Status: Acute Plan 28-year-old with postcoital bleeding at 24 weeks gestation, multiparous. Ultrasound appears normal. Normal placenta. Will observe her symptoms. She will have short-term follow-up. Reassuring heart rate monitoring. Given precautions.
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
--- OUTSIDE RECORDS SUMMARY | 2024-03-27 08:44 | XMS_ITS | Clinical Summary ---
Author Organization [facility] Address [address] [place] [address] Phone Care Team Providers Care Flotation Operator Name Role Phone Provider, None Primary Care Provider Unavailabl e Allergies No known active allergies Medications No known medications Social History Tobacco Use Types Packs/Day Years Used Date Smoking Tobacco: Never Alcohol Use Standard Drinks/Week Comments No 0 (1 standard drink = 0.6 oz pur e alcohol) Comments Unknown Sex and Gender Information Value Date Recorded Sex Assigned at Not on file Legal Sex Female 11:28 PM CDT Gender Identity Not on file Sexual Orientation Not on file Last Filed Vital Signs Vital Sign Reading Time Taken Comments Blood Pressure 114/78 01/03/2017 1:00 AM CDT Pulse 88 01/03/2017 1:00 AM CDT Temperature 37.2 ??C (99 ??F) 01/02/2017 11:33 PM CDT Respiratory Rate 16 01/03/2017 1:00 AM CDT Oxygen Saturation 99% 01/03/2017 1:00 AM CDT Inhaled Oxygen Concentration - - Weight 45.4 kg (100 lb) 01/02/2017 11:31 PM CDT Height 160 cm (5' 3 ) 01/02/2017 11:31 PM CDT Body Mass Index 17.71 01/02/2017 11:31 PM CDT Plan of Treatment Not on file [place] [address] Care Teams Flotation Operator Relationship Specialty Start Date End Date Provider, Derik CHOWDARY PCP - General 01/02/17
--- OUTSIDE RECORDS SUMMARY | 2024-03-27 08:44 | XMS_ITS | Referral Summary ---
Author Organization [facility] [employer] Address [address] [place] [address] Care Team Providers Care Inspector Materials And Processes Name Role Phone Pedro David MD Primary Care Provider [phone] Source Comments [facility] [employer],non-owned Affiliates and Associated Physician Practices is amultiple site organization consisting of ambulatory clinics and hospital sitesin [place], [place], [place] and [place]. This disclosure is being madepursuant to the Care Everywhere program and may not contain all information available regarding this patient. Last updated 17.[facility] [employer] Allergies Active Allergy Reactions Criticality Noted Date Comments Blueberry Flavor GI Discomfort Low 12/29/2017 Sparks GI Discomfort 12/29/2017 Medications * Be aware that medications may not be up to date on this document. Alwaysverify current medications with the patient. Medication Sig Dispensed Refills Start Date End Date Status acetaminophen (TYLENOL) 325 MG tablet Take 2 tablets by mouth every 4 hours Maximum allowable Acetaminophen amount = 4 Grams (4000 mg) / 24 hours. 10/14/2018 Active Additional Information Patient not taking.Reported on 10/05/2020 polyethylene glycol 3350 (MIRALAX) packet Take 17 g by mouth once daily 10/15/2018 Active Additional Information Patient not taking.Reported on 10/05/2020 senna (SENOKOT) 8.6 MG tablet Take 1 tablet by mouth once daily 10/15/2018 Active Additional Information Patient not taking.Reported on 10/05/2020 ondansetron, disintegrating, (ZOFRAN ODT) 4 MG tablet Take 1 tablet by mouth every 6 hours as needed for Nausea/Vomiting Allow tablet to dissolve on the tongue 14 tablet 10/14/2018 Active Additional Information Patient not taking.Reported on 10/05/2020 sertraline (ZOLOFT) 50 MG tablet Take 1 tablet by mouth once daily 30 tablet 1 10/14/2018 Active Additional Information Patient not taking.Reported on 10/05/2020 ALPRAZolam (XANAX) 0.25 MG tablet Take 0.25 mg by mouth 10/21/2018 Active amphetamine-dextro amphetamine XR 24hr (ADDERALL XR) 20 MG capsule TK ONE C PO QD 0 11/28/2018 Active docusate sodium (COLACE) 100 MG capsule Take 100 mg by mouth Acti ve metaxalone (SKELAXIN) 800 MG tablet Take 800 mg by mouth 10/14/2018 Acti ve ondansetron (ZOFRAN) 4 MG tablet Take 4 mg by mouth 10/21/2018 Active phenol (CHLORASEPTIC) 1.4 % liquid 1 spray by Mouth/Throat route Active valACYclovir (VALTREX) 1 GM tablet TAKE 1 TABLET BY MOUTH TWICE A DAY FOR 7 DAYS 0 10/29/2018 Active Active Problems Problem Noted Date Diagnosed Date Encounter for supervision of normal , a ntepartum 10/05/2020 Sensorineural hearing loss ( SNHL) of left ear with unrestricted hearing of right ear 03/07/2019 Acute respiratory failure 10/09/2018 SDH (subdural hematoma) 10/03/2018 Fracture of occipital condyle 10/03/2018 Intraparenchymal hematoma of right side of brain due to trauma 10/03/2018 Epidural hematoma 10/02/2018 Traumatic epidural hematoma with loss of consciousness of 30 minutes or less Neck pain Social History Tobacco Use Types Packs/Day Years Used Date Smoking Tobacco: Never Smokeless Tobacco: Never Alcohol Use Standard Drinks/Week Comments No 0 (1 standard drink = 0.6 oz pur e alcohol) AUDIT-C Answer Date Recorded Frequency of Alcohol Consumption Not on file 03/15/2023 Q2: How many drinks containi ng alcohol do you have on a typical day when you are drinking? Patient does not drink Frequency of Binge Drinking Not on file 03/05 Sex and Gender Information Value Date Recorded Sex Assigned at Not on file Gender Identity Not on file Sexual Orientation Not on file Last Filed Vital Signs Vital Sign Reading Time Taken Comments Blood Pressure 101/64 03/15/2023 10:04 PM VISION THERAPIST Pulse 69 03/15/2023 10:04 PM VISION THERAPIST Temperature 36.3 ??C (97.3 ??F) 03/15/2023 10:[address] Respiratory Rate 18 03/15/2023 10:04 PM VISION THERAPIST Oxygen Saturation 99% 03/15/2023 10:04 PM VISION THERAPIST Inhaled Oxygen Concentration 21% 10/08/2018 9 :05 AM CDT Weight 52.2 kg (115 lb) 03/15/2023 7:11 PM VISION THERAPIST Height 160 cm (5' 3 ) 03/15/2023 7:11 PM VISION THERAPIST Body Mass Index 20.37 03/15/2023 7:11 PM VISION THERAPIST Functional Status Functional Status Response Date of Assess ment Is person deaf or have serious hearing difficult y? No 10/05/2020 Is person blind or have serious difficulty seein g? No 10/05/2020 Does person have serious dif ficulty walking/climbing stairs? No 10/05/2020 Does person have difficulty dressing/bathing? No 10/05/2020 Does person have difficulty doing errands alone? No 10/05/2020 Cognitive Status Response Date of Assessm ent Does person have difficulty concentrating/remembering/making decisions? No 10/05/2020 Plan of Treatment Not on file Procedures Procedure Name Priority Date/Time Associated Diagnosis Comments HIV-1 HIV-2 ANTIGEN/ANTIBODY Routine 10/13/2018 3:15 PM CDT from Last 3 Months or Most Recently Relevant to Health Maintenance Results * HIV-1 HIV-2 ANTIGEN/ANTIBODY (10/13/2018 3:15 PM CDT) HIV Antigen/Antibod y 1 & 2 Non-reacti ve Non-react shu 10/13/2018 4:15 PM CDT [facility] Comment: Neither HIV-1 p24 Antigen nor HIV-1/HIV-2 Antibodies are detected. ? Blood BLOOD SPECIMEN / Unknown Lab Venipuncture / Unknown 10/13/2018 3:15 PM CDT 10/13/2018 3:26 PM CDT Promise Arceo MD LAB - HEMATOLOGY ORD ERABLES [facility] [address] [place] [address], [facility] [phone] from Last 3 Months or Most Recently Relevant to Health Maintenance Advance Directives * Full Code (Latest Code Status on File) Date Activated Date Inactivated Comments 10/02/2018 10:06 PM 10/14/2018 5:26 PM * Full Code Date Activated Date Inactivated Comments 10/02/2018 4:06 PM 10/02/2018 10:06 PM * DNR WITH COMFORT MEASURES Date Activated Date Inactivated Comments 10/02/2018 4:04 PM 10/02/2018 4:06 PM Question Answer Comments : DO NOT discontinue a ny active orders without asking attending physician. Comfort Measures: yes Care Teams Inspector Materials And Processes Relationship Specialty Start Date End Date Pedro David MD [address] [place] [id number] PCP - General 11/19/18
--- OUTSIDE RECORDS SUMMARY | 2024-03-27 08:44 | XMS_ITS | Patient Health Summary ---
Author Organization [facility] Address [address] [place] [address] Care Team Providers [employer] Name Role Phone Pedro David MD Primary Care Provider [phone] Note from [facility],non-owned Affiliates and Associated Physician Practices is amultiple site organization consisting of ambulatory clinics and hospital sitesin [place], [place], [place] and [place]. This disclosure is being madepursuant to the Care Everywhere program and may not contain all information available regarding this patient. Last updated 17.[facility] Allergies * Blueberry Flavor(GI Discomfort) -Low Criticality * Sparks(GI Discomfort) Medications * Be aware that medications may not be up to date on this document. Alwaysverify current medications with the patient. * acetaminophen (TYLENOL) 325 MG tablet(Started 10/14/2018) Take 2 tablets by mouth every 4 hours Maximum allowable Acetaminophen amount = 4 Grams (4000 mg) / 24 hours. * polyethylene glycol 3350 (MIRALAX) packet(Started 10/15/2018) Take 17 g by mouth once daily * senna (SENOKOT) 8.6 MG tablet(Started 10/15/2018) Take 1 tablet by mouth once daily * ondansetron, disintegrating, (ZOFRAN ODT) 4 MG tablet(Started 10/14/2018) Take 1 tablet by mouth every 6 hours as needed for Nausea/Vomiting Allow tablet to dissolve on the tongue * sertraline (ZOLOFT) 50 MG tablet(Started 10/14/2018) Take 1 tablet by mouth once daily 1 refill remaining * ALPRAZolam (XANAX) 0.25 MG tablet(Started 10/21/2018) Take 0.25 mg by mouth * amphetamine-dextroamphetamine XR 24hr (ADDERALL XR) 20 MG capsule(Started 11/28/2018) TK ONE C PO QD * docusate sodium (COLACE) 100 MG capsule Take 100 mg by mouth * metaxalone (SKELAXIN) 800 MG tablet(Started 10/14/2018) Take 800 mg by mouth * ondansetron (ZOFRAN) 4 MG tablet(Started 10/21/2018) Take 4 mg by mouth * phenol (CHLORASEPTIC) 1.4 % liquid 1 spray by Mouth/Throat route * valACYclovir (VALTREX) 1 GM tablet(Started 10/29/2018) TAKE 1 TABLET BY MOUTH TWICE A DAY FOR 7 DAYS Active Problems Problem Noted Date Diagnosed Date [...] Comments Blood Pressure 101/64 03/15/2023 10:04 PM DIRECTOR CORPORATE COMPLIANCE Pulse 69 03/15/2023 10:04 PM DIRECTOR CORPORATE COMPLIANCE Temperature 36.3 ??C (97.3 ??F) 03/15/2023 10:[address] Respiratory Rate 18 03/15/2023 10:04 PM DIRECTOR CORPORATE COMPLIANCE Oxygen Saturation 99% 03/15/2023 10:04 PM DIRECTOR CORPORATE COMPLIANCE Inhaled Oxygen Concentration 21% 10/08/2018 9 :05 AM CDT Weight 52.2 kg (115 lb) 03/15/2023 7:11 PM DIRECTOR CORPORATE COMPLIANCE Height 160 cm (5' 3 ) 03/15/2023 7:11 PM DIRECTOR CORPORATE COMPLIANCE Body Mass Index 20.37 03/15/2023 7:11 PM DIRECTOR CORPORATE COMPLIANCE Procedures * CT HEAD WO CONTRAST(Performed 03/16/2023) Performed for Post concussion syndrome * DIFFERENTIAL MANUAL(Performed 03/15/2023) * HCG BETA BLOOD QUANTITATIVE(Performed 03/15/2023) * COMPREHENSIVE METABOLIC PANEL(Performed 03/15/2023) * CBC W AUTO DIFFERENTIAL(Performed 03/15/2023) * IMAGING/RADIOLOGY/XRAY RESULTS ORDER(Performed 10/11/2020) * SONOGRAM - LIMITED(Performed 10/05/2020) * NONSTRESS TEST(Performed 10/05/2020) * URINE MICROSCOPIC ONLY REFLEX TO CULTURE(Performed 10/05/2020) Performed for Encounter for supervision of normal , antepartum, unspecified ([facility]) * URINALYSIS REFLEX MICROSCOPIC REFLEX CULTURE(Performed 10/05/2020) Performed for Encounter for supervision of normal , antepartum, unspecified ([facility]) * CULTURE URINE(Performed 10/05/2020) Performed for Encounter for supervision of normal , antepartum, unspecified ([facility]) * CHLAMYDIA + GC AMPLIFIED PROBE(Performed 10/05/2020) Performed for Encounter for supervision of normal , antepartum, unspecified ([facility]) * TRICHOMONAS RAPID TEST(Performed 10/05/2020) Performed for Encounter for supervision of normal , antepartum, unspecified ([facility]) * PROTEIN URINE QUALITATIVE AUTO(Performed 10/05/2020) Performed for Encounter for supervision of normal , antepartum, unspecified ([facility]) * KETONES QUALITATIVE URINE AUTO(Performed 10/05/2020) Performed for Encounter for supervision of normal , antepartum, unspecified ([facility]) * AUDIOLOGY/TYMPANOMETRY ORDER(Performed 10/08/2019) * AUDIOLOGY/TYMPANOMETRY ORDER(Performed 10/08/2019) * AUDIOLOGY/TYMPANOMETRY ORDER(Performed 10/08/2019) * AUDIOLOGY/TYMPANOMETRY ORDER(Performed 10/08/2019) * AUDIOLOGY/TYMPANOMETRY ORDER(Performed 05/16/2019) * CT TEMPORAL BONES WO CONTRAST(Performed 03/17/2019) Performed for Sensorineural hearing loss (SNHL) of left ear with unrestricted hearing of right ear * HCG URINE QUALITATIVE(Performed 03/17/2019) Performed for Pre-op exam * CT HEAD WO CONTRAST(Performed 12/03/2018) Performed for Hypoxia * CARDIAC PROCEDURE ORDER(Performed 10/16/2018) * C. TRACHOMATIS + N. GONORRHOEAE ALDO(Performed 10/13/2018) * SYPHILIS ANTIBODY CASCADING REFLEX(Performed 10/13/2018) * HEPATITIS B SURFACE ANTIBODY(Performed 10/13/2018) * HERPES SIMPLEX 1+2 ANTIBODY IGG/IGM PANEL(Performed 10/13/2018) * HIV-1 HIV-2 ANTIGEN/ANTIBODY(Performed 10/13/2018) * MAGNESIUM BLOOD(Performed 10/11/2018) * PHOSPHORUS BLOOD(Performed 10/11/2018) * BASIC METABOLIC PANEL (CALCIUM TOTAL)(Performed 10/11/2018) * CBC W AUTO DIFFERENTIAL(Performed 10/11/2018) * PHOSPHORUS BLOOD(Performed 10/10/2018) * MAGNESIUM BLOOD(Performed 10/10/2018) * CBC W AUTO DIFFERENTIAL(Performed 10/10/2018) * BASIC METABOLIC PANEL (CALCIUM TOTAL)(Performed 10/10/2018) * OSMOLALITY BLOOD(Performed 10/09/2018) * SODIUM BLOOD(Performed 10/09/2018) * SODIUM BLOOD(Performed 10/09/2018) * XR CHEST 1VW PORTABLE(Performed 10/09/2018) Performed for Hypoxia * PHOSPHORUS BLOOD(Performed 10/09/2018) * MAGNESIUM BLOOD(Performed 10/09/2018) * BASIC METABOLIC PANEL (CALCIUM TOTAL)(Performed 10/09/2018) * CBC W AUTO DIFFERENTIAL(Performed 10/09/2018) * OSMOLALITY BLOOD(Performed 10/09/2018) * SODIUM BLOOD(Performed 10/09/2018) * SODIUM BLOOD(Performed 10/08/2018) * FL SWALLOWING FUNCTION STUDY(Performed 10/08/2018) Performed for Hypoxia * OSMOLALITY BLOOD(Performed 10/08/2018) * SODIUM BLOOD(Performed 10/08/2018) * SODIUM BLOOD(Performed 10/08/2018) * XR CHEST 1VW PORTABLE(Performed 10/08/2018) Performed for Hypoxia * BLOOD GASES ARTERIAL(Performed 10/07/2018) * PHOSPHORUS BLOOD(Performed 10/07/2018) * MAGNESIUM BLOOD(Performed 10/07/2018) * BASIC METABOLIC PANEL (CALCIUM TOTAL)(Performed 10/07/2018) * CBC W AUTO DIFFERENTIAL(Performed 10/07/2018) * OSMOLALITY BLOOD(Performed 10/07/2018) * SODIUM BLOOD(Performed 10/07/2018) * VENTILATOR LIBERATION TRIAL PROTOCOL(Performed 10/07/2018) * OSMOLALITY BLOOD(Performed 10/07/2018) * SODIUM BLOOD(Performed 10/07/2018) * XR CHEST 1VW PORTABLE(Performed 10/07/2018) Performed for Hypoxia * BLOOD GASES ARTERIAL(Performed 10/07/2018) * SODIUM BLOOD(Performed 10/07/2018) * BLOOD GASES ARTERIAL(Performed 10/07/2018) * PHOSPHORUS BLOOD(Performed 10/07/2018) * MAGNESIUM BLOOD(Performed 10/07/2018) * BASIC METABOLIC PANEL (CALCIUM TOTAL)(Performed 10/07/2018) * CBC W AUTO DIFFERENTIAL(Performed 10/07/2018) * OSMOLALITY BLOOD(Performed 10/07/2018) * SODIUM BLOOD(Performed 10/06/2018) * CBC W/O DIFFERENTIAL(Performed 10/06/2018) * OSMOLALITY BLOOD(Performed 10/06/2018) * SODIUM BLOOD(Performed 10/06/2018) * SODIUM BLOOD(Performed 10/06/2018) * DIFFERENTIAL MANUAL(Performed 10/06/2018) * PHOSPHORUS BLOOD(Performed 10/06/2018) * MAGNESIUM BLOOD(Performed 10/06/2018) * BASIC METABOLIC PANEL (CALCIUM TOTAL)(Performed 10/06/2018) * CBC W AUTO DIFFERENTIAL(Performed 10/06/2018) * OSMOLALITY BLOOD(Performed 10/06/2018) * SODIUM BLOOD(Performed 10/06/2018) * BLOOD GASES ARTERIAL(Performed 10/05/2018) * XR CHEST 1VW PORTABLE(Performed 10/05/2018) Performed for Hypoxia * XR ABDOMEN KUB PORTABLE(Performed 10/05/2018) Performed for Hypoxia * VENTILATOR LIBERATION TRIAL PROTOCOL(Performed 10/05/2018) * XR CHEST 1VW PORTABLE(Performed 10/05/2018) Performed for Hypoxia * BLOOD GASES ARTERIAL(Performed 10/05/2018) * BLOOD GASES ARTERIAL(Performed 10/05/2018) * SODIUM BLOOD(Performed 10/05/2018) * OSMOLALITY BLOOD(Performed 10/05/2018) * SODIUM BLOOD(Performed 10/05/2018) * XR CHEST 1VW(Performed 10/05/2018) Performed for Hypoxia * SODIUM BLOOD(Performed 10/05/2018) * CT HEAD WO CONTRAST(Performed 10/05/2018) Performed for Epidural hematoma (HCC) * GLUCOSE - POINT OF CARE(Performed 10/05/2018) * PHOSPHORUS BLOOD(Performed 10/04/2018) * MAGNESIUM BLOOD(Performed 10/04/2018) * BASIC METABOLIC PANEL (CALCIUM TOTAL)(Performed 10/04/2018) * CBC W AUTO DIFFERENTIAL(Performed 10/04/2018) * OSMOLALITY BLOOD(Performed 10/04/2018) * SODIUM BLOOD(Performed 10/04/2018) * SODIUM BLOOD(Performed 10/04/2018) * OSMOLALITY BLOOD(Performed 10/04/2018) * SODIUM BLOOD(Performed 10/04/2018) * SODIUM BLOOD(Performed 10/04/2018) * PHOSPHORUS BLOOD(Performed 10/04/2018) * MAGNESIUM BLOOD(Performed 10/04/2018) * BASIC METABOLIC PANEL (CALCIUM TOTAL)(Performed 10/04/2018) * CBC W AUTO DIFFERENTIAL(Performed 10/04/2018) * OSMOLALITY BLOOD(Performed 10/04/2018) * URINALYSIS REFLEX TO MICROSCOPIC NO CULTURE(Performed 10/03/2018) * SODIUM BLOOD(Performed 10/03/2018) * OSMOLALITY BLOOD(Performed 10/03/2018) * SODIUM BLOOD(Performed 10/03/2018) * MRI CERVICAL SPINE WO CONTRAST(Performed 10/03/2018) Performed for SDH (subdural hematoma) (HCC), Epidural hematoma (HCC) * CT HEAD WO CONTRAST(Performed 10/03/2018) Performed for SDH (subdural hematoma) (HCC), Epidural hematoma (HCC) * SODIUM BLOOD(Performed 10/03/2018) * PHOSPHORUS BLOOD(Performed 10/03/2018) * MAGNESIUM BLOOD(Performed 10/03/2018) * BASIC METABOLIC PANEL (CALCIUM TOTAL)(Performed 10/03/2018) * CBC W AUTO DIFFERENTIAL(Performed 10/03/2018) * OSMOLALITY BLOOD(Performed 10/03/2018) * SODIUM BLOOD(Performed 10/03/2018) * CT LUMBAR SPINE WO CONTRAST(Performed 10/02/2018) Performed for SDH (subdural hematoma) (HCC) * CT THORACIC SPINE WO CONTRAST(Performed 10/02/2018) Performed for SDH (subdural hematoma) (HCC) * CT CERVICAL SPINE WO CONTRAST(Performed 10/02/2018) Performed for SDH (subdural hematoma) (HCC) * HCG URINE QUALITATIVE - POINT OF CARE(Performed 10/02/2018) * CT HEAD WO CONTRAST(Performed 10/02/2018) Performed for SDH (subdural hematoma) (HCC) * PTT [facility](Performed 10/02/2018) * PT-INR [facility](Performed 10/02/2018) * COMPREHENSIVE METABOLIC PANEL(Performed 10/02/2018) * CBC W AUTO DIFFERENTIAL(Performed 10/02/2018) Results * CT HEAD WO CONTRAST (03/16/2023 2:08 AM DIRECTOR CORPORATE COMPLIANCE) Only the most recent of5 resultswithin the time period is included. Anatomical Region Laterality Modality Head Computed Tomogra phy 03/16/2023 2:11 AM DIRECTOR CORPORATE COMPLIANCE Impressions 03/16/2023 8:53 AM DIRECTOR CORPORATE COMPLIANCE IMPRESSION: 1.No acute intracranial process or hemorrhage. 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 > Dictated by Angel Felix M.D. (resident in diagnostic radiology) I, Katalina Knight MD have personally reviewed and interpreted this examination/study. > Interpreting Provider: Katalina Knight MD on 03/16/2023 8:53 AM Narrative 03/16/2023 8:53 AM DIRECTOR CORPORATE COMPLIANCE PROCEDURE: ??CT HEAD WO CONTRAST, DATE/TIME OF EXAM: ??03/16/2023 2:08 AM, LOCATION ??[facility] INDICATION: F07.81: Post concussion syndrome ADDITIONAL CLINICAL INFORMATION: Ordering Provider Reason For Exam: ??ich? COMPARISON: Multiple prior comparisons, including CT head dated 12/03/2018 and 10/02/2018 TECHNIQUE: CT of the head was performed without contrast according to standard protocol. FINDINGS: No acute intra- or extra-axial fluid collections are identified. There is redemonstration of encephalomalacia in the anterior right frontal lobe, consistent with sequelae of prior traumatic brain injury. The ventricles are of normal size, shape, and morphology. The basilar cisterns are patent. No mass effect or midline shift is seen. The bañuelos-white matter differentiation is normal. The orbits appear normal. The paranasal sinuses are clear. The mastoid air cells are clear. No soft tissue abnormality is identified. Procedure Note Katalina Knight MD - 03/16/2023 PROCEDURE: CT HEAD WO CONTRAST, DATE/TIME OF EXAM: 03/16/2023 2:08 AM, LOCATION [facility] INDICATION: F07.81: Post concussion syndrome ADDITIONAL CLINICAL INFORMATION: Ordering Provider Reason For Exam: ich? COMPARISON: Multiple prior comparisons, including CT head dated 12/03/2018 and10/02/2018 TECHNIQUE: CT of the head was performed without contrast according to standard protocol. FINDINGS: No acute intra- or extra-axial fluid collections are identified. Thereis redemonstration of encephalomalacia in the anterior right frontal lobe, consistent with sequelae of prior traumatic brain injury. The ventricles are of normal size, shape, and morphology. The basilar cisterns arepatent. No mass effect or midline shift is seen. The bañuelos-white matter differentiation is normal. The orbits appear normal. The paranasalsinuses are clear. The mastoid air cells are clear. No soft tissue abnormalityis identified. IMPRESSION: 1.No acute intracranial process or hemorrhage. 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 > Dictated by Angel Felix M.D. (resident in diagnostic radiology) I, Katalina Knight MD have personally reviewed and interpreted this examination/study. > Interpreting Provider: Katalina Knight MD on 03/16/2023 8:53 AM Nicole Jesus MD CT ORDERABLES * (ABNORMAL) DIFFERENTIAL MANUAL (03/15/2023 8:23 PM DIRECTOR CORPORATE COMPLIANCE) Only the most recent of2 resultswithin the time period is included. Neutrophil % 36(L) 41 - 74 % 03/15/2023 10:05 PM [facility] Lymphocyte % 52(H) 17 - 47 % 03/15/2023 10:05 PM [facility] Monocyte % 12(H) 3 - 11 % 03/15/2023 10:05 PM [facility] Neutrophil Absolute 1.69 1.60 - 7.50 x10E9/L 03/15/2023 10:05 PM [facility] Lymphocyte Absolute 2.44 1.00 - 4.40 x10E9/L 03/15/2023 10:05 PM [facility] Monocyte Absolute 0.56 0.15 - 1.00 x10E9/L 03/15/2023 10:05 PM [facility] RBC Morphology REVIEWED 03/15/2023 10:05 PM [facility] Ovalocytes MODERATE(A) (none) 03/15/2023 10:05 PM [facility] Tear Drop Cells MODERATE(A) (none) 03/15/2023 10:05 PM [facility] Blood BLOOD SPECIMEN / Unknown Venipuncture / Unknown 03/15/2023 8:23 PM DIRECTOR CORPORATE COMPLIANCE 03/15/2023 8:46 PM DIRECTOR CORPORATE COMPLIANCE Jose Das MD LAB - HEMATOLOGY ORD ERABLES [facility] [address] [place] [address], [facility] [phone] * (ABNORMAL) CBC W AUTO DIFFERENTIAL (03/15/2023 8:23 PM DIRECTOR CORPORATE COMPLIANCE) Only the most recent of11 resultswithin the time period is included. WBC 4.7 4.0 - 10.7 x10E9/L 03/15/2023 10:05 PM [facility] RBC Count 4.31 3.90 - 5.20 x10E12/L 03/15/2023 10:05 PM [facility] Hemoglobin 13.0 11.9 - 15.8 g/dL 03/15/2023 10:05 PM [facility] Hematocrit 38.0 34.8 - 46.1 % 03/15/2023 10:05 PM [facility] MCV 88.2 80.0 - 98.0 fL 03/15/2023 10:05 PM [facility] MCH 30.2 26.7 - 33.6 pg 03/15/2023 10:05 PM [facility] MCHC 34.2 31.7 - 36.3 g/dL 03/15/2023 10:05 PM [facility] RDW-CV 11.6 11.3 - 14.8 % 03/15/2023 10:05 PM [facility] Platelet Count 139(L) 150 - 420 x10E9/L 03/15/2023 10:05 PM [facility] MPV 11.2 7.8 - 11.4 fL 03/15/2023 10:05 PM [facility] Blood BLOOD SPECIMEN / Unknown Venipuncture / Unknown 03/15/2023 8:23 PM DIRECTOR CORPORATE COMPLIANCE 03/15/2023 8:46 PM DIRECTOR CORPORATE COMPLIANCE Jose Das MD LAB - HEMATOLOGY ORD ERABLES [facility] [address] [place] [address], [facility] [phone] * (ABNORMAL) COMPREHENSIVE METABOLIC PANEL (03/15/2023 8:23 PM DIRECTOR CORPORATE COMPLIANCE) Only the most recent of2 resultswithin the time period is included. BUN 9 7 - 26 mg/dL 03/15/2023 9:16 PM [facility] Creatinine 0.82 0.56 - 0.96 mg/dL 03/15/2023 9:16 PM [facility] Sodium 140 136 - 145 mmol/L 03/15/2023 9:16 PM [facility] Potassium 4.8(H) 3.5 - 4.5 mmol/L 03/15/2023 9:16 PM [facility] Chloride 107 98 - 107 mmol/L 03/15/2023 9:16 PM [facility] CO2 29 22 - 29 mmol/L 03/15/2023 9:16 PM [facility] Glucose 86 70 - 115 mg/dL 03/15/2023 9:16 PM [facility] Calcium 9.1 8.4 - 10.2 mg/dL 03/15/2023 9:16 PM [facility] Protein Total 7.0 6.0 - 8.3 g/dL 03/15/2023 9:16 PM [facility] Albumin 4.0 3.4 - 5.0 g/dL 03/15/2023 9:16 PM [facility] Bilirubin Total 0.3 0.2 - 1.2 mg/dL 03/15/2023 9:16 PM [facility] Alkaline Phosphatase 50 40 - 150 U/L 03/15/2023 9:16 PM [facility] ALT 22 5 - 55 U/L 03/15/2023 9:16 PM [facility] AST 19 5 - 34 U/L 03/15/2023 9:16 PM [facility] Anion Gap 4(L) 6 - 16 03/15/2023 9:16 PM [facility] BUN/Creatinine Ratio 11 7 - 23 03/15/2023 9:16 PM [facility] Osmolality Calculated 288 275 - 295 mOsm/kg 03/15/2023 9:16 PM [facility] Albumin/Globulin Ratio 1.3 1.1 - 2.3 03/15/2023 9:16 PM [facility] eGFR by CKD-EPI >90 >=90 mL/min/1.7 3 m2 03/15/2023 9:16 PM [facility] Blood BLOOD SPECIMEN / Unknown Venipuncture / Unknown 03/15/2023 8:23 PM DIRECTOR CORPORATE COMPLIANCE 03/15/2023 8:46 PM DIRECTOR CORPORATE COMPLIANCE Jose Das MD LAB - CHEMISTRY NUPUR LEE [facility] Organization Address [facility] Co de Phone Number [address] [address], [facility] [phone] * HCG BETA BLOOD QUANTITATIVE (03/15/2023 8:23 PM DIRECTOR CORPORATE COMPLIANCE) Beta-hCG Total Quantitative <3 mIU/mL 03/15/2023 9:20 PM [facility] Comment: HCG Numeric Result Interpretation: ? Non- Females: ? < 5 mIU/mL ? Post-Menopausal Females: ??< 7 mIU/mL ? This assay is cleared for use in the early detection of only. It is not approved for any other uses such as tumor marker screening, tumor marker monitoring, etc. and should not be used for any other purposes. Blood BLOOD SPECIMEN / Unknown Venipuncture / Unknown 03/15/2023 8:23 PM DIRECTOR CORPORATE COMPLIANCE 03/15/2023 8:46 PM DIRECTOR CORPORATE COMPLIANCE Jose Das MD LAB - CHEMISTRY NUPUR LEE [facility] Organization Address City/State/ZIP Co de Phone Number [address] [address], [facility] [phone] * IMAGING RADIOLOGY XRAY RESULTS ORDER (10/11/2020 8:00 PM CDT) Anatomical Region Laterality Modality Other Narrative 10/11/2020 8:00 PM CDT Ordered by an unspecified provider. Scanned Document IMAGING * SONOGRAM - LIMITED (10/05/2020 10:10 PM CDT) Anatomical Region Laterality Modality Other Narrative 10/05/2020 10:10 PM CDT See Israel MD ? 10/05/2020 10:13 PM Bedside OB Ultrasound Indications: Patient Active Problem List: ?? Epidural hematoma ?? SDH (subdural hematoma) ?? Fracture of occipital condyle ?? Intraparenchymal hematoma of right side of brain due to trauma ?? Traumatic epidural hematoma with loss of consciousness of 30 minutes or less ?? Neck pain ?? Acute respiratory failure ?? Sensorineural hearing loss (SNHL) of left ear with unrestricted hearing of right ear ?? Encounter for supervision of normal , antepartum Bedside ultrasound: Presentation: vertex ? Placenta: anterior Amniotic fluid index 7.15, FWB reassuring, continue outpatient care and testing as indicated. See Israel MD 10/05/2020 10:12 PM Deb Deng MD [facility] ORDERABLES * NONSTRESS TEST (10/05/2020 10:09 PM CDT) Narrative Janina Cardenas MD - 10/05/2020 10:09 PM CDT Janina Cardenas MD ? 10/05/2020 10:20 PM Name: ??Mirtha Woo Date of : ??1995 Today's Date: ??10/05/2020 33w5d ?NST RESULTS ([place]) OBJECTIVE FINDINGS Temp: 97.3 ??F (36.3 ??C), ??, Resp: 16, BP: 118/69 NST Indication(s): labor Uterine Irritability: Yes Contractions: Irregular Frequency: 3-4 Duration (sec) Range: 60-100 Perceived Intensity: Mild OBJECTIVE FINDINGS Movement: Present Monitoring Mode: External Baseline: 130 BPM Variability: Moderate Decelerations: None Accelerations: Yes OTHER INFORMATION Shiloh Johnson RN Non-Stress Test [facility] Patient Name: Mirtha Woo LMP: No LMP recorded (lmp unknown). Patient is . Indications: Other rule out PTL NST date: 10/05/2020 NST duration: >20 mins Interpretation: Baseline: ??145 beats/minute, ??moderate variability Reactive Contractions: ??Irregular q3-5 minutes Decelerations: ??rare variable Impression and Plan: FWB reassuring, continue monitoring as scheduled. See Israel MD 10/05/2020 10:14 PM Deb Deng MD OB [facility] ORDERABLES * (ABNORMAL) URINE MICROSCOPIC ONLY REFLEX TO CULTURE (10/05/2020 7:48 PM CDT) Reflex Status Culture to follow 10/05/2020 8:04 PM CDT [facility] RBC UA 0-2 None Seen, 0-2, 3-5 # /hpf 10/05/2020 8:04 PM CDT [facility] WBC UA 6-10(A) None Seen, 0-5 # /hpf 10/05/2020 8:04 PM CDT [facility] Bacteria UA Trace(A) None Seen 10/05/2020 8:04 PM CDT [facility] Squamous Epithelial Cells 11-20(A) None Seen, 0-2, 3-5 /hpf 10/05/2020 8:04 PM CDT [facility] Mucus UA 1+ /LPF 10/05/2020 8:04 PM CDT [facility] Urine URINE SPECIMEN OBTAINED BY CLEAN CATCH PROCEDURE / Unknown Collection / Unknown 10/05/2020 7:48 PM CDT 10/05/2020 7:56 PM CDT Narrative [facility] - 10/05/2020 8:04 PM CDT Deb Deng MD LAB - URINALYSIS ORD ERABLES Performing Organization Address [facility]/ZIP Co de Phone Number [facility] [address] [place] [address] * CHLAMYDIA + GC AMPLIFIED PROBE (STL) (10/05/2020 7:48 PM CDT) Chlamydia Amplified Probe Negative Negative 10/06/2020 6:19 AM CDT [facility] GC Amplified Probe Negative Negative 10/06/2020 6:19 AM CDT [facility] Microbiology ENTIRE VAGINA / Unknown Collection / Unknown 10/05/2020 7:48 PM CDT 10/05/2020 7:56 PM CDT Narrative [facility] - 10/06/2020 6:19 AM CDT Results based on detection/no detection of ribosomal RNA by amplified method. Deb Deng MD LAB - MICROBIOLOGY O RDERABLES Performing Organization Address City/[facility]/ZIP Co de Phone Number [facility] [address] [place] [address], [facility] [phone] * (ABNORMAL) URINALYSIS REFLEX MICROSCOPIC REFLEX CULTURE (10/05/2020 7:48 PM CDT) Color UA Yellow Straw, Yellow 10/05/2020 8:02 PM CDT [facility] Clarity UA Slt Cloudy(A) Clear 10/05/2020 8:02 PM CDT [facility] Glucose UA Negative Negative 10/05/2020 8:02 PM CDT [facility] Bilirubin UA Negative Negative 10/05/2020 8:02 PM CDT [facility] Ketone UA Negative Negative 10/05/2020 8:02 PM CDT [facility] Specific [place] UA 1.015 1.005 - 1.030 10/05/2020 8:02 PM CDT [facility] Blood UA Negative Negative 10/05/2020 8:02 PM CDT [facility] pH UA 7.0 5.0 - 8.0 pH 10/05/2020 8:02 PM CDT [facility] Protein UA Negative Negative 10/05/2020 8:02 PM CDT [facility] Urobilinogen UA Negative Negative mg/dL 10/05/2020 8:02 PM CDT [facility] Nitrite UA Negative Negative 10/05/2020 8:02 PM CDT [facility] Leukocyte UA 2+(A) Negative 10/05/2020 8:02 PM CDT [facility] Urine Microscopy Urine microscopy to follow 10/05/2020 8:02 PM CDT [facility] Reflex Status Culture to follow 10/05/2020 8:02 PM CDT [facility] Urine URINE SPECIMEN OBTAINED BY CLEAN CATCH PROCEDURE / Unknown Collection / Unknown 10/05/2020 7:48 PM CDT 10/05/2020 7:56 PM CDT Narrative [facility] - 10/05/2020 8:02 PM CDT Deb Deng MD LAB - URINALYSIS ORD ERABLES [facility] [address] [place] [id number] * TRICHOMONAS RAPID TEST (10/05/2020 7:48 PM CDT) [facility] Trichomonas Rapid Test Negative Negative 10/05/2020 8:11 PM CDT [facility] Microbiology VAGINAL SWAB / Unknown Collection / Unknown 10/05/2020 7:48 PM CDT 10/05/2020 7:56 PM CDT Deb Deng MD LAB - MICROBIOLOGY O RDERABLES [facility] [address] [place], [place] [id number] * CULTURE URINE (10/05/2020 7:48 PM CDT) Pathologist [facility] Culture Urine 50,000-100,000 CFU/mL urogenital jessie BILLIE 10/07/2020 9:51 AM CDT [facility] Urine URINE SPECIMEN OBTAINED BY CLEAN CATCH PROCEDURE / Unknown Collection / Unknown 10/05/2020 7:48 PM CDT 10/05/2020 7:56 PM CDT Deb Deng MD [facility] [address] [place] [address], [facility] [phone] * PROTEIN URINE QUALITATIVE AUTO (10/05/2020 7:33 PM CDT) Protein UA Negative Negative 10/05/2020 7:52 PM CDT [facility] Urine URINE / Unknown Collection / Unknown 10/05/2020 7:33 PM CDT 10/05/2020 7:43 PM CDT Narrative [facility] - 10/05/2020 7:52 PM CDT Deb Deng MD LAB - URINALYSIS ORD ERABLES Performing Organization Address [facility] Co de Phone Number [facility] [address] [place] [phone] * KETONES QUALITATIVE URINE AUTO (10/05/2020 7:33 PM CDT) Ketone UA Negative Negative 10/05/2020 7:52 PM CDT [facility] Urine URINE / Unknown Collection / Unknown 10/05/2020 7:33 PM CDT 10/05/2020 7:43 PM CDT Narrative [facility] - 10/05/2020 7:52 PM CDT Deb Deng MD LAB - URINALYSIS ORD ERABLES Performing Organization Address [facility] Co de Phone Number [facility] [address] [place] [phone] * AUDIOLOGY/TYMPANOMETRY ORDER (10/08/2019 9:01 AM CDT) Narrative 10/08/2019 9:01 AM CDT Ordered by an unspecified provider. Scanned Document AUDIOLOGY SERVICES O RDERABLES * AUDIOLOGY/TYMPANOMETRY ORDER (10/08/2019 9:01 AM CDT) Narrative 10/08/2019 9:01 AM CDT Ordered by an unspecified provider. Scanned Document AUDIOLOGY SERVICES O RDERABLES * AUDIOLOGY/TYMPANOMETRY ORDER (10/08/2019 9:01 AM CDT) Narrative 10/08/2019 9:01 AM CDT Ordered by an unspecified provider. Scanned Document AUDIOLOGY SERVICES O RDERABLES * AUDIOLOGY/TYMPANOMETRY ORDER (10/08/2019 9:01 AM CDT) Narrative 10/08/2019 9:01 AM CDT Ordered by an unspecified provider. Scanned Document AUDIOLOGY SERVICES O RDERABLES * AUDIOLOGY/TYMPANOMETRY ORDER (05/16/2019 10:32 AM CDT) Narrative 05/16/2019 10:32 AM CDT Ordered by an unspecified provider. Scanned Document AUDIOLOGY SERVICES O RDERABLES * CT TEMPORAL BONES WO CONTRAST (03/17/2019 5:26 PM DIRECTOR CORPORATE COMPLIANCE) Anatomical Region Laterality Modality Head Computed Tomogra phy 03/18/2019 7:11 AM DIRECTOR CORPORATE COMPLIANCE Impressions 03/18/2019 10:09 AM DIRECTOR CORPORATE COMPLIANCE IMPRESSION: No apparent fracture. Noted trace left mastoid effusion. I, Dr. DRE DAMON have personally reviewed and interpreted this examination/study. This report was electronically signed by DRE DAMON ??on 03/18/2019 10:09 AM . Narrative 03/18/2019 10:09 AM DIRECTOR CORPORATE COMPLIANCE EXAMINATION: Computed tomography (CT) of the temporal bones without contrast HISTORY: Left sensorineural hearing loss. Concern for fracture. TECHNIQUE: CT of the temporal bones was performed without contrast according to standard protocol. FINDINGS: CT head without contrast dated 12/03/2018 Right temporal bone: The external auditory canal, tympanic cavity, and ossicular chain appear normal. The aditus ad antrum, mastoid antrum, mastoid air cells are clear. The inner near structures are normal. The tegmen and sinus plates are intact. Left temporal bone: The external auditory canal, tympanic cavity, and ossicular chain appear normal. The aditus ad antrum and mastoid antrum are clear. Trace effusion and a few inferior mastoid air cells. The inner near structures are normal. The tegmen and sinus plates are intact. Procedure Note Dre Damon MD - 03/18/2019 EXAMINATION: Computed tomography (CT) of the temporal bones without contrast HISTORY: Left sensorineural hearing loss. Concern for fracture. TECHNIQUE: CT of the temporal bones was performed without contrast according to standard protocol. FINDINGS: CT head without contrast dated 12/03/2018 Right temporal bone: The external auditory canal, tympanic cavity, and ossicular chain appear normal. The aditus ad antrum, mastoid antrum, mastoid air cells areclear. The inner near structures are normal. The tegmen and sinus plates are intact. Left temporal bone: The external auditory canal, tympanic cavity, and ossicular chain appear normal. The aditus ad antrum and mastoid antrum are clear. Traceeffusion and a few inferior mastoid air cells. The inner near structures are normal. The tegmen and sinus plates are intact. IMPRESSION: No apparent fracture. Noted trace left mastoid effusion. IDr. DRE have personally reviewed and interpreted this examination/study. This report was electronically signed by DRE DAMON on 03/18/201910:09 AM . Gene Pack MD CT ORDERABLES * HCG URINE QUALITATIVE (03/17/2019 4:21 PM DIRECTOR CORPORATE COMPLIANCE) Test Urine Negative Negative 03/17/2019 5:17 PM DIRECTOR CORPORATE COMPLIANCE [facility] Urine URINE / Unknown 03/17/2019 4 :21 PM DIRECTOR CORPORATE COMPLIANCE 03/17/2019 5:12 PM DIRECTOR CORPORATE COMPLIANCE Kar Main MD LAB - URINALYSIS ORD ERABLES [address] [phone] * CARDIAC PROCEDURE ORDER (10/16/2018 12:40 PM CDT) Narrative 10/16/2018 12:40 PM CDT Ordered by an unspecified provider. Scanned Document CARDIAC SERVICES ORD ERABLES * C. TRACHOMATIS + N. GONORRHOEAE ALDO (10/13/2018 4:59 PM CDT) Chlamydia Trachomatis ALDO Not Detected Not Detected 10/14/2018 4:31 PM CDT [facility] Neisseria Gonorrhoeae ALDO Not Detected Not Detected 10/14/2018 4:31 PM CDT [facility] Microbiology URINE / Unknown Collection / Unknown 10/13/2018 4:59 PM CDT 10/13/2018 4:59 PM CDT Narrative [facility] - 10/14/2018 4:31 PM CDT This analysis was performed using Gen-Probe Aptima Combo 2. This methodology is U.S[place] FDA approved for Chlamydia trachomatis and Neisseria gonorrhoeae testing for urine and urogenital swabs from men and women, and cervical cells submitted in ThinPrep vials. Performance characteristics for rectal and pharyngeal swabs were determined by the [facility] at [facility]. ??Testing by Gen- Probe Aptima Combo 2 on these sample types has not been cleared or approved by the U.S. FDA. ??The FDA has determined that such clearance approval is not necessary. ??This test is used for clinical purposes and should not be regarded as investigational or for research. ??This laboratory is certified under the Clinical Laboratory Improvements Amendments of 1988 (CLIA 1988), as qualified to perform high complexity laboratory testing. Promise Arceo MD LAB - MICROBIOLOGY O RDERABLES Performing Organization Address City/State/[facility] Co de Phone Number [facility] [address] [place], [place] [id number] [place] [address] * HIV-1 HIV-2 ANTIGEN/ANTIBODY (10/13/2018 3:15 PM CDT) HIV Antigen/Antibod y 1 & 2 Non-reacti ve Non-react shu 10/13/2018 4:15 PM CDT [facility] Comment: Neither HIV-1 p24 Antigen nor HIV-1/HIV-2 Antibodies are detected. ? Blood BLOOD SPECIMEN / Unknown Lab Venipuncture / Unknown 10/13/2018 3:15 PM CDT 10/13/2018 3:26 PM CDT Promise Arceo MD LAB - HEMATOLOGY ORD TERESA Performing Organization Address [facility] de Phone Number [address] [phone] * SYPHILIS ANTIBODY CASCADING REFLEX (10/13/2018 3:15 PM CDT) Pathologist [facility] Treponema pallidum Antibody Non-react shu Non-react shu 10/13/2018 4:23 PM CDT [facility] Comment: No Laboratory evidence of syphilis infection. ?? Note: ??Circulating antibodies may be low or undetectable in early infection. ??If recent exposure is suspected, re-draw sample in 2-4 weeks and repeat testing. Blood BLOOD SPECIMEN / Unknown 10/13/2018 3:15 PM CDT 10/13/2018 3:41 PM CDT Janes Hernandez DO LAB - SEROLOGY NUPUR LEE Performing Organization Address [facility] de Phone Number [address] [phone] * (ABNORMAL) HERPES SIMPLEX 1+2 ANTIBODY IGG/IGM PANEL (10/13/2018 3:15 PM CDT) Pathologist [facility] Herpes Simplex Virus Antibody IgM I/II Combination Ratio 1.45(H) 0.00 - 0.90 Ratio 10/16/2018 7:08 AM CDT [facility] ([facility]) Comment: ? Negative ?<0.91 ? Equivocal 0.91 - 1.09 ? Positive ?>1.09 Herpes Simplex Virus I Antibody IgG Type Specific Index <0.91 0.00 - 0.90 index 10/16/2018 7:08 AM T [facility] ([facility]) Comment: ? Negative ?<0.91 ? Equivocal 0.91 - 1.09 ? Positive ?>1.09 Note: Negative indicates no antibodies detected to HSV-1. Equivocal may suggest early infection. ??If clinically appropriate, retest at later date. Positive indicates antibodies detected to HSV-1. Herpes Simplex Virus 2 Antibody IgG Type Specific 6.71(H) 0.00 - 0.90 index 10/16/2018 7:08 AM T [facility] ([facility]) Comment: ? Negative ?<0.91 ? Equivocal 0.91 - 1.09 ? Positive ?>1.09 Note: Negative indicates no antibodies detected to HSV-2. Equivocal may suggest early infection. ??If clinically appropriate, retest at later date. Positive indicates antibodies detected to HSV-2. Blood BLOOD SPECIMEN / Unknown Lab Venipuncture / Unknown 10/13/2018 3:15 PM CDT 10/13/2018 3:26 PM CDT Narrative [facility] ([facility]) - 10/16/2018 7:08 AM CDT Performed at: ??01 - [facility] [address], [place], [place] ??[id number] Senior Controller: Jac Pierce PhD, Phone: ??[phone] Promise Arceo MD LAB - CHEMISTRY NUPUR LEE Performing Organization Address [facility] Co de Phone Number [facility] ([facility]) [address] [place] [address] [place] * HEPATITIS B SURFACE ANTIBODY (10/13/2018 3:15 PM CDT) [facility] Hepatitis B Virus Surface Antibody Non-react shu Non-react shu 10/13/2018 4:15 PM CDT [facility] Comment: < 8 mIU/mL Hepatitis B surface Antibody (HBsAb). Nonreactive for HBsAb - individual is considered not immune to Hepatitis B Virus infection. Hepatitis B Surface Antibody Quantitative 4.9 <8.0 mIU/mL 10/13/2018 4:15 PM CDT [facility] Comment: Hepatitis B Surface Antibody Numeric Result Interpretation: ? Nonreactive: ?<8.0 mIU/mL ? Indeterminate: ??8.0 - 12.0 mIU/mL ? Reactive: ?>12.0 mIU/mL ? Blood BLOOD SPECIMEN / Unknown Lab Venipuncture / Unknown 10/13/2018 3:15 PM CDT 10/13/2018 3:26 PM CDT Promise Arceo MD LAB - CHEMISTRY NUPUR LEE Performing Organization Address [facility]/ZIP Co de Phone Number [address] [phone] * (ABNORMAL) BASIC METABOLIC PANEL (CALCIUM TOTAL) (10/11/2018 2:09 AM CDT) Only the most recent of9 resultswithin the time period is included. [facility] BUN 8 7 - 26 mg/dL 10/11/2018 3:00 AM [facility] Creatinine 0.6 0.6 - 1.2 mg/dL 10/11/2018 3:00 AM [facility] Sodium 139 136 - 145 mmol/L 10/11/2018 3:00 AM [facility] Potassium 3.6 3.5 - 4.5 mmol/L 10/11/2018 3:00 AM [facility] Chloride 105 98 - 107 mmol/L 10/11/2018 3:00 AM [facility] CO2 21(L) 22 - 29 mmol/L 10/11/2018 3:00 AM [facility] Glucose 93 70 - 115 mg/dL 10/11/2018 3:00 AM [facility] Calcium 9.4 8.4 - 10.2 mg/dL 10/11/2018 3:00 AM [facility] Anion Gap 17 8 - 18 10/11/2018 3:00 AM [facility] BUN/Creatinine Ratio 13 7 - 23 10/11/2018 3:00 AM [facility] Osmolality Calculated 286 270 - 300 mOsm/kg 10/11/2018 3:00 AM [facility] eGFR >60 >60 mL/min/1.7 3 m2 10/11/2018 3:00 AM [facility] Blood BLOOD SPECIMEN / Unknown Lab Venipuncture / Unknown 10/11/2018 2:09 AM CDT 10/11/2018 2:37 AM T Maria Fernanda Larose MD LAB - CHEMISTRY NUPUR LEE [facility] Organization Address City/State/ZIP Co de Phone Number [address] [phone] * PHOSPHORUS BLOOD (10/11/2018 2:09 AM T) Only the most recent of9 resultswithin the time period is included. Phosphorus 4.4 2.3 - 4.7 mg/dL 10/11/2018 3:00 AM [facility] Blood BLOOD SPECIMEN / Unknown Lab Venipuncture / Unknown 10/11/2018 2:09 AM CDT 10/11/2018 2:37 AM CDT Maria Fernanda Larose MD LAB - CHEMISTRY NUPUR LEE Performing Organization Address [facility]/ZIP Co de Phone Number [address] [phone] * MAGNESIUM BLOOD (10/11/2018 2:09 AM CDT) Only the most recent of9 resultswithin the time period is included. Magnesium 1.7 1.6 - 2.6 mg/dL 10/11/2018 3:00 AM CDT [facility] Blood BLOOD SPECIMEN / Unknown Lab Venipuncture / Unknown 10/11/2018 2:09 AM CDT 10/11/2018 2:37 AM CDT Jose Guadalupe Esquivel MD LAB - CHEMISTRY ORDDelon LEE Performing Organization Address [facility] Co de Phone Number [address] [phone] * OSMOLALITY BLOOD (10/09/2018 12:14 PM CDT) Only the most recent of14 resultswithin the time period is included. Osmolality 287 270 - 300 mOsm/kg 10/09/2018 1:13 PM CDT [facility] Blood BLOOD SPECIMEN / Unknown Venipuncture / Unknown 10/09/2018 12:14 PM CDT 10/09/2018 12:23 PM CDT Srinivasan Guallpa DO LAB - CHEMISTRY ORDDelon LEE Performing Organization Address [facility] [place] [address], [facility] [phone] * SODIUM BLOOD (10/09/2018 12:14 PM CDT) Only the most recent of24 resultswithin the time period is included. Sodium 138 136 - 145 mmol/L 10/09/2018 12:39 PM CDT [facility] Blood BLOOD SPECIMEN / Unknown Venipuncture / Unknown 10/09/2018 12:14 PM CDT 10/09/2018 12:23 PM CDT Srinivasan Guallpa DO LAB - CHEMISTRY NUPUR LEE [address] [phone] * XR CHEST 1VW PORTABLE (10/09/2018 6:07 AM CDT) Only the most recent of5 resultswithin the time period is included. Anatomical Region Laterality Modality Chest Radiographic Jahaira ging 10/09/2018 10:4 3 AM CDT Impressions 10/09/2018 2:08 PM CDT FINDINGS/IMPRESSION: The previous endotracheal and gastric tubes have been removed. Hyperattenuating material superimposes the left upper quadrant. There is no focal consolidation, pleural effusion, or pneumothorax. The cardiomediastinal silhouette is normal. Dictated by Ron Velasquez MD (Resident). Dr. ALISSON Dorado have personally reviewed and interpreted this examination/study. This report was electronically signed by ALISSON FOSTER ??on 10/09/2018 2:08 PM . Narrative 10/09/2018 2:08 PM CDT EXAMINATION: XR CHEST 1VW PORTABLE HISTORY: Intubated COMPARISON: Comparison is made with a study from 10/08/2018. Procedure Note Alisson Fsoter DO - 10/09/2018 EXAMINATION: XR CHEST 1VW PORTABLE HISTORY: Intubated COMPARISON: Comparison is made with a study from 10/08/2018. FINDINGS/IMPRESSION: The previous endotracheal and gastric tubes have been removed. Hyperattenuating material superimposes the left upper quadrant. There is no focal consolidation, pleural effusion, or pneumothorax. The cardiomediastinal silhouette is normal. Dictated by Ron Velasquez MD (Resident). Dr. ALISSON Dorado have personally reviewed and interpreted this examination/study. This report was electronically signed by ALISSON FOSTER on 10/09/2018 2:08 PM . Maria Fernanda Larose MD DIAGNOSTIC IMAGING O RDERABLES * FL SWALLOWING FUNCTION STUDY (10/08/2018 2:45 PM CDT) Anatomical Region Laterality Modality Chest Radiographic Jahaira ging 10/08/2018 2:56 PM CDT Impressions 10/09/2018 12:46 PM CDT FINDINGS/IMPRESSION: Fluoroscopic assistance was provided for a procedure performed by Speech Therapy. ??Please see the separate report by Speech Therapy for further details. Fluoroscopy Time: 92.2 seconds. Dictated by Luis Armando Potts MD (Resident). This report was approved ??by Luis Armando Potts ?? on 10/09/2018 11:[address] ALISSON Dorado have personally reviewed and interpreted this examination/study. This report was electronically signed by ALISSON FOSTER ??on 10/09/2018 12:46 PM . Narrative 10/09/2018 12:46 PM CDT EXAMINATION: FL SWALLOWING FUNCTION STUDY HISTORY: swallow study per pearl glue operator COMPARISON: No prior study is available for comparison. Procedure Note Alisson Foster DO - 10/09/2018 EXAMINATION: FL SWALLOWING FUNCTION STUDY HISTORY: swallow study per pearl glue operator COMPARISON: No prior study is available for comparison. FINDINGS/IMPRESSION: Fluoroscopic assistance was provided for a procedure performed by Speech Therapy. Please see the separate report by Speech Therapy for further details. Fluoroscopy Time: 92.2 seconds. Dictated by Luis Armando Potts MD (Resident). This report was approved by Luis Armando Potts on 10/09/2018 11:[address] ALISSON Dorado have personally reviewed and interpreted this examination/study. This report was electronically signed by ALISSON FOSTER on 10/09/2018 12:46 PM . Maria Fernanda Larose MD FLUOROSCOPY ORDERABL ES * (ABNORMAL) BLOOD GASES ARTERIAL (10/07/2018 11:42 PM CDT) Only the most recent of6 resultswithin the time period is included. pH Arterial 7.51(H) 7.35 - 7.45 10/07/2018 11:51 PM CDT [facility] pCO2 Arterial 27(L) 35 - 45 mmHg 10/07/2018 11:51 PM CDT [facility] pO2 Arterial 173(H) 82 - 106 mmHg 10/07/2018 11:51 PM [facility] HCO3 Arterial 20.7(L) 22.0 - 26.0 mmol/L 10/07/2018 11:51 PM [facility] TCO2 Arterial 21.5(L) 25.0 - 29.0 mmol/L 10/07/2018 11:51 PM [facility] Base Excess Arterial -1.6 -2.0 - 2.0 mmol/L 10/07/2018 11:51 PM [facility] Hemoglobin Arterial 9.8(L) 12.0 - 15.5 g/dL 10/07/2018 11:51 PM [facility] Oxyhemoglobin Arterial 97.7 95.0 - 100.0 % 10/07/2018 11:51 PM [facility] Carboxyhemoglobin 0.2 0.0 - 3.0 % 10/07/2018 11:51 PM [facility] Methemoglobin 0.3 0.0 - 2.0 % 10/07/2018 11:51 PM [facility] FI O2 Arterial 40.0 % 10/07/2018 11:51 PM [facility] Blood, arterial ARTERIAL BLOOD SPECIMEN / Unknown Arterial Puncture / Unknown 10/07/2018 11:42 PM CDT 10/07/2018 11:48 PM T Srinivasan Guallpa DO LAB - BLOOD GASES OR DERABLES Performing Organization Address [facility]/State/[facility] Co de Phone Number [facility] [address] [phone] * (ABNORMAL) CBC W/O DIFFERENTIAL (10/06/2018 11:45 AM CDT) WBC 10.5 3.5 - 10.5 10? 3 /uL 10/06/2018 12:14 PM [facility] Comment:Confirmed by repeat analysis. RBC 3.93 3.90 - 5.00 10? 6 /uL 10/06/2018 12:14 PM [facility] Hemoglobin 11.7(L) 12.0 - 15.5 g/dL 10/06/2018 12:14 PM [facility] Hematocrit 35.2 35.0 - 45.0 % 10/06/2018 12:14 PM [facility] MCV 89.6 81.0 - 97.0 fL 10/06/2018 12:14 PM [facility] MCH 29.8 28.0 - 34.0 pg 10/06/2018 12:14 PM [facility] MCHC 33.2 32.0 - 36.0 g/dL 10/06/2018 12:14 PM [facility] Platelet Count 178 150 - 400 10? 3 /uL 10/06/2018 12:14 PM [facility] RDW-SD 40.7 36.0 - 50.0 fL 10/06/2018 12:14 PM [facility] RDW-CV 12.4 11.2 - 14.8 % 10/06/2018 12:14 PM [facility] MPV 10.9 9.3 - 12.8 fL 10/06/2018 12:14 PM [facility] nRBC Absolute 0.00 0 10? 3 /uL 10/06/2018 12:14 PM [facility] nRBC Auto 0.0 0 /100 WBC 10/06/2018 12:14 PM [facility] Blood BLOOD SPECIMEN / Unknown Venipuncture / Unknown 10/06/2018 11:45 AM CDT 10/06/2018 11:57 AM CDT Newton Jones MD LAB - HEMATOLOGY ORD ERABLES Performing Organization Address City/State/[facility] Co de Phone Number [address] [phone] * XR ABDOMEN KUB PORTABLE (10/05/2018 10:20 PM CDT) Anatomical Region Laterality Modality Abdomen Radiographic Jahaira ging 10/06/2018 8:32 AM CDT Impressions 10/06/2018 10:48 AM CDT IMPRESSION: A gastric tube superimposes the stomach. Report dictated by Keith Blanton MD (resident in diagnostic radiology). I, Dr. ALISSON FOSTER have personally reviewed and interpreted this examination/study. This report was electronically signed by ALISSON FOSTER ??on 10/06/2018 10:48 AM . Narrative 10/06/2018 10:48 AM CDT EXAMINATION: XR ABDOMEN KUB PORTABLE HISTORY: Enteric tube placement COMPARISON: No prior study is available for comparison. Procedure Note Alisson Foster, - 08/12/2020 EXAMINATION: XR ABDOMEN KUB PORTABLE HISTORY: Enteric tube placement COMPARISON: No prior study is available for comparison. IMPRESSION: A gastric tube superimposes the stomach. Report dictated by Keith Blanton MD (resident in diagnostic radiology). Dr. ALISSON Dorado have personally reviewed and interpreted this examination/study. This report was electronically signed by ALISSON FOSTER on 10/06/2018 10:48 AM . Vatche Melkonian DO DIAGNOSTIC IMAGING O RDERABLES * XR CHEST 1VW (10/05/2018 1:30 PM CDT) Anatomical Region Laterality Modality Chest Radiographic Jahaira ging 10/05/2018 2:42 PM CDT Impressions 10/06/2018 10:10 AM CDT IMPRESSION: 1.No acute pulmonary process is seen. Report drafted by Conner Malloy M.D. (resident) Dr. ALISSON Dorado have personally reviewed and interpreted this examination/study. This report was electronically signed by ALISSON FOSTER ??on 10/06/2018 10:10 AM . Narrative 10/06/2018 10:10 AM CDT EXAMINATION: XR CHEST 1VW HISTORY: thick secretions, hypoxia COMPARISON: None. FINDINGS: No focal consolidation, pleural effusion, or pneumothorax is seen. The cardiomediastinal silhouette is normal. No acute fractures are seen. Procedure Note sahilAlisson darden Suzan, DO - 10/06/2018 EXAMINATION: XR CHEST 1VW HISTORY: thick secretions, hypoxia COMPARISON: None. FINDINGS: No focal consolidation, pleural effusion, or pneumothorax is seen. The cardiomediastinal silhouette is normal. No acute fractures are seen. IMPRESSION: 1.No acute pulmonary process is seen. Report drafted by Conner Malloy M.D. (resident) IDr. ALISSON have personally reviewed and interpreted this examination/study. This report was electronically signed by ALISSON FOSTER on 10/06/2018 10:10 AM . Maria Fernanda Larose MD DIAGNOSTIC IMAGING O RDERABLES * (ABNORMAL) GLUCOSE - POINT OF CARE (10/05/2018 6:15 AM CDT) Glucose WB/POC 116(H) 70 - 115 mg/dL 10/05/2018 6:22 AM T [facility] Specimen Type Arterial/C apillary 10/05/2018 6:22 AM T [facility] Blood BLOOD SPECIMEN / Unknown 10/05/2018 6:15 AM CDT 10/05/2018 6:22 AM CDT Narrative [facility] - 10/05/2018 6:22 AM CDT [facility]ACON SKINNER: KATHY ??RAYMUNDO Janes Hernandez DO LAB - POINT OF CARE ORDERABLES [address] [phone] * (ABNORMAL) URINALYSIS REFLEX TO MICROSCOPIC NO CULTURE (10/03/2018 10:14 PM CDT) Color UA Yellow Straw, Yellow, Colorless 10/03/2018 10:37 PM T [facility] Clarity UA Clear Clear, Slt Cloudy 10/03/2018 10:37 PM T [facility] Specific [place] UA 1.017 1.005 - 1.030 10/03/2018 10:37 PM [facility] pH UA 5.0 5.0 - 8.0 pH 10/03/2018 10:37 PM [facility] Protein UA Negative Negative mg/dL 10/03/2018 10:37 PM [facility] Glucose UA Negative Negative mg/dL 10/03/2018 10:37 PM [facility] Ketone UA 1+(A) Negative mg/dL 10/03/2018 10:37 PM [facility] Bilirubin UA Negative Negative mg/dL 10/03/2018 10:37 PM CDT [facility] Blood UA 1+(A) Negative 10/03/2018 10:37 PM CDT [facility] Nitrite UA Negative Negative 10/03/2018 10:37 PM CDT [facility] Leukocyte Esterase Negative Negative 10/03/2018 10:37 PM T [facility] Urobilinogen UA Negative Negative mg/dL 10/03/2018 10:37 PM CDT [facility] RBC UA 0-2 None Seen, 0-2, 3-5 /HPF 10/03/2018 10:37 PM T [facility] WBC UA 0-5 None Seen, 0-5 /HPF 10/03/2018 10:37 PM [facility] Squamous Epithelial Cells UA None Seen None Seen, 0-2 /HPF 10/03/2018 10:37 PM CDT [facility] Urine URINE SPECIMEN OBTAINED BY SINGLE CATHETERIZATION OF URINARY BLADDER / Unknown Collection / Unknown 10/03/2018 10:14 PM CDT 10/03/2018 10:22 PM CDT Janes Hernandez DO LAB - URINALYSIS OR DERABLES [address] [phone] * MRI CERVICAL SPINE WO CONTRAST (10/03/2018 10:08 AM CDT) Anatomical Region Laterality Modality Pelvis Magnetic Resonan ce 10/03/2018 10:4 6 AM CDT Impressions 10/03/2018 10:53 AM CDT IMPRESSION: 1. The MRI examination was aborted per patient's request and refusal to continue, due to severe pain. 2. On the available single sequence sagittal T2-weighted images of the cervical spine, there is no evidence of marrow edema to indicate fracture and no intramedullary abnormal signal intensity is identified in the cord. No evidence of ligamentous injury is identified in this sequence. This report was electronically signed by KAR Bhat?on 10/03/2018 10:53 AM . Narrative 10/03/2018 10:53 AM CDT EXAMINATION: MRI CERVICAL SPINE WITHOUT CONTRAST HISTORY: This a 22-year-old status post fall with intracranial hemorrhage COMPARISON: CT head and cervical spine without contrast dated 10/02/2018. TECHNIQUE: The patient was placed in the scanner and there is scanning was started. However, after completing the first and sagittal sequence, the patient refused to continue due to severe pain in her head, probably related to the known left occipital fracture. FINDINGS: The single sagittal T2-weighted images of the cervical spine demonstrate stable straightening of the cervical spine and. There is no evidence of marrow edema in the vertebral bodies. No visible annular fissure or posterior disc herniation is identified. There is no evidence of ligamentous injury of the anterior or posterior longitudinal ligaments, ligamentum flavum or the posterior ligamentous complex. The predental space and apical interval are within normal limits. No ligamentous injury in the craniocervical junction is evident on this single sequence. The imaged portion of the brainstem, posterior fossa, craniocervical junction as well as the cervical and imaged upper thoracic spinal cord are within normal limits. Abnormal marrow signal intensity. Note is made of an apparent sphenoid sinus disease. Procedure Note Kar Main MD - 10/03/2018 EXAMINATION: MRI CERVICAL SPINE WITHOUT CONTRAST HISTORY: This a 22-year-old status post fall with intracranialhemorrhage COMPARISON: CT head and cervical spine without contrast dated 10/02/2018. TECHNIQUE: The patient was placed in the scanner and there is scanningwas started. However, after completing the first and sagittal sequence, the patient refused to continue due to severe pain in her head, probably related to the known left occipital fracture. FINDINGS: The single sagittal T2-weighted images of the cervical spine demonstrate stable straightening of the cervical spine and. There is no evidence of marrow edema in the vertebral bodies. No visible annular fissure or posterior disc herniation is identified. There is no evidence of ligamentous injury of the anterior or posterior longitudinalligaments, ligamentum flavum or the posterior ligamentous complex. The predental space and apical interval are within normal limits. No ligamentousinjury in the craniocervical junction is evident on this single sequence. The imaged portion of the brainstem, posterior fossa, craniocervicaljunction as well as the cervical and imaged upper thoracic spinal cord are within normal limits. Abnormal marrow signal intensity. Note is made of an apparent sphenoid sinus disease. IMPRESSION: 1. The MRI examination was aborted per patient's request and refusal to continue, due to severe pain. 2. On the available single sequence sagittal T2-weighted images of the cervical spine, there is no evidence of marrow edema to indicatefracture and no intramedullary abnormal signal intensity is identified in thecord. No evidence of ligamentous injury is identified in this sequence. This report was electronically signed by KAR MAIN on 10/03/2018 10:53 AM . Brown Elliott MD MR ORDERABLES * CT LUMBAR SPINE WO CONTRAST (10/02/2018 9:13 PM CDT) Anatomical Region Laterality Modality Spine Computed Tomogra phy 10/02/2018 9:18 PM CDT Impressions 10/03/2018 8:08 AM CDT IMPRESSION: 1.Nondisplaced left inferior occipital bone fracture just lateral to the left occipital condyle. 2.No acute fracture in the cervical, thoracic, or lumbar spine. Dictated by Gloria Baron M.D. (resident in diagnostic radiology). This report was approved ??by Gloria Baron ?? on 10/03/2018 8:08 AM . I, Dr. ENRIQUE YOUNG have personally reviewed and interpreted this examination/study. This report was electronically signed by ENRIQUE YOUNG ??on 10/03/2018 8:08 AM . Narrative 10/03/2018 8:08 AM CDT EXAMINATION: 1. Computed tomography (CT) of the cervical spine without contrast 2. CT of the thoracic spine without contrast 3. CT of the lumbar spine without contrast HISTORY: FRACTURE COMPARISON: None available TECHNIQUE: CT of the cervical, thoracic, and lumbar spine was performed without contrast according to standard protocol. FINDINGS: Cervical spine: There is a nondisplaced left inferior occipital bone fracture just lateral to the left occipital condyle. This is better seen on the CT head, and on that exam can be found at series 5 image 12. Straightening of the normal cervical lordosis. Mild levocurvature of the cervical spine.. Vertebral bodies are normal in height without evidence of acute fracture. The craniocervical junction is normal. The intervertebral discs appear normal. No central canal stenosis is seen. The facets appear normal. The uncovertebral joints appear normal. No neural foraminal stenosis is seen. No soft tissue abnormality is identified. Thoracic spine: The alignment is normal. Vertebral bodies are normal in height without evidence of acute fracture. The intervertebral discs appear normal. No central canal stenosis is seen. The facets appear normal. No neural foraminal stenosis is seen. No soft tissue abnormality is identified. Lumbar spine: The alignment is normal. Vertebral bodies are normal in height without evidence of acute fracture. The intervertebral discs appear normal. No central canal stenosis is seen. The facets appear normal. No neural foraminal stenosis is seen. No soft tissue abnormality is identified. Procedure Note Enrique Young MD - 10/03/2018 EXAMINATION: 1. Computed tomography (CT) of the cervical spine without contrast 2. CT of the thoracic spine without contrast 3. CT of the lumbar spine without contrast HISTORY: FRACTURE COMPARISON: None available TECHNIQUE: CT of the cervical, thoracic, and lumbar spine was performed without contrast according to standard protocol. FINDINGS: Cervical spine: There is a nondisplaced left inferior occipital bone fracture justlateral to the left occipital condyle. This is better seen on the CT head, andon that exam can be found at series 5 image 12. Straightening of the normal cervical lordosis. Mild levocurvature of the cervical spine.. Vertebral bodies are normal in height without evidenceof acute fracture. The craniocervical junction is normal. Theintervertebral discs appear normal. No central canal stenosis is seen. The facetsappear normal. The uncovertebral joints appear normal. No neural foraminal stenosis is seen. No soft tissue abnormality is identified. Thoracic spine: The alignment is normal. Vertebral bodies are normal in height without evidence of acute fracture. The intervertebral discs appear normal. No central canal stenosis is seen. The facets appear normal. No neural foraminal stenosis is seen. No soft tissue abnormality is identified. Lumbar spine: The alignment is normal. Vertebral bodies are normal in height without evidence of acute fracture. The intervertebral discs appear normal. No central canal stenosis is seen. The facets appear normal. No neural foraminal stenosis is seen. No soft tissue abnormality is identified. IMPRESSION: 1.Nondisplaced left inferior occipital bone fracture just lateral to the left occipital condyle. 2.No acute fracture in the cervical, thoracic, or lumbar spine. Dictated by Gloria Baron M.D. (resident in diagnostic radiology). This report was approved by Gloria Baron on 10/03/2018 8:[address] ENRIQUE Dorado have personally reviewed and interpreted this examination/study. This report was electronically signed by ENRIQUE YOUNG on10/03/2018 8:08 AM . Daryl Vicente Jr., MD CT ORDERABLES * CT THORACIC SPINE WO CONTRAST (10/02/2018 9:13 PM CDT) Anatomical Region Laterality Modality Spine Computed Tomogra phy 10/02/2018 9:18 PM CDT Impressions 10/03/2018 8:08 AM CDT IMPRESSION: 1.Nondisplaced left inferior occipital bone fracture just lateral to the left occipital condyle. 2.No acute fracture in the cervical, thoracic, or lumbar spine. Dictated by Gloria Baron M.D. (resident in diagnostic radiology). This report was approved ??by Gloria Baron ?? on 10/03/2018 8:[address] ENRIQUE Dorado have personally reviewed and interpreted this examination/study. This report was electronically signed by ENRIQUE YOUNG ??on 10/03/2018 8:08 AM . Narrative 10/03/2018 8:08 AM CDT EXAMINATION: 1. Computed tomography (CT) of the cervical spine without contrast 2. CT of the thoracic spine without contrast 3. CT of the lumbar spine without contrast HISTORY: FRACTURE COMPARISON: None available TECHNIQUE: CT of the cervical, thoracic, and lumbar spine was performed without contrast according to standard protocol. FINDINGS: Cervical spine: There is a nondisplaced left inferior occipital bone fracture just lateral to the left occipital condyle. This is better seen on the CT head, and on that exam can be found at series 5 image 12. Straightening of the normal cervical lordosis. Mild levocurvature of the cervical spine.. Vertebral bodies are normal in height without evidence of acute fracture. The craniocervical junction is normal. The intervertebral discs appear normal. No central canal stenosis is seen. The facets appear normal. The uncovertebral joints appear normal. No neural foraminal stenosis is seen. No soft tissue abnormality is identified. Thoracic spine: The alignment is normal. Vertebral bodies are normal in height without evidence of acute fracture. The intervertebral discs appear normal. No central canal stenosis is seen. The facets appear normal. No neural foraminal stenosis is seen. No soft tissue abnormality is identified. Lumbar spine: The alignment is normal. Vertebral bodies are normal in height without evidence of acute fracture. The intervertebral discs appear normal. No central canal stenosis is seen. The facets appear normal. No neural foraminal stenosis is seen. No soft tissue abnormality is identified. Procedure Note Enrique Young MD - 10/03/2018 EXAMINATION: 1. Computed tomography (CT) of the cervical spine without contrast 2. CT of the thoracic spine without contrast 3. CT of the lumbar spine without contrast HISTORY: FRACTURE COMPARISON: None available TECHNIQUE: CT of the cervical, thoracic, and lumbar spine was performed without contrast according to standard protocol. FINDINGS: Cervical spine: There is a nondisplaced left inferior occipital bone fracture justlateral to the left occipital condyle. This is better seen on the CT head, andon that exam can be found at series 5 image 12. Straightening of the normal cervical lordosis. Mild levocurvature of the cervical spine.. Vertebral bodies are normal in height without evidenceof acute fracture. The craniocervical junction is normal. Theintervertebral discs appear normal. No central canal stenosis is seen. The facetsappear normal. The uncovertebral joints appear normal. No neural foraminal stenosis is seen. No soft tissue abnormality is identified. Thoracic spine: The alignment is normal. Vertebral bodies are normal in height without evidence of acute fracture. The intervertebral discs appear normal. No central canal stenosis is seen. The facets appear normal. No neural foraminal stenosis is seen. No soft tissue abnormality is identified. Lumbar spine: The alignment is normal. Vertebral bodies are normal in height without evidence of acute fracture. The intervertebral discs appear normal. No central canal stenosis is seen. The facets appear normal. No neural foraminal stenosis is seen. No soft tissue abnormality is identified. IMPRESSION: 1.Nondisplaced left inferior occipital bone fracture just lateral to the left occipital condyle. 2.No acute fracture in the cervical, thoracic, or lumbar spine. Dictated by Gloria Baron M.D. (resident in diagnostic radiology). This report was approved by Gloria Baron on 10/03/2018 8:[address] ENRIQUE Dorado have personally reviewed and interpreted this examination/study. This report was electronically signed by ENRIQUE YOUNG on10/03/2018 8:08 AM . Daryl Vicente Jr., MD CT ORDERABLES * CT CERVICAL SPINE WO CONTRAST (10/02/2018 9:13 PM CDT) Anatomical Region Laterality Modality Spine Computed Tomogra phy 10/02/2018 9:18 PM CDT Impressions 10/03/2018 8:08 AM CDT IMPRESSION: 1.Nondisplaced left inferior occipital bone fracture just lateral to the left occipital condyle. 2.No acute fracture in the cervical, thoracic, or lumbar spine. Dictated by Gloria Baron M.D. (resident in diagnostic radiology). This report was approved ??by Gloria Baron ?? on 10/03/2018 8:[address] ENRIQUE Dorado have personally reviewed and interpreted this examination/study. This report was electronically signed by ENRIQUE YOUNG ??on 10/03/2018 8:08 AM . Narrative 10/03/2018 8:08 AM CDT EXAMINATION: 1. Computed tomography (CT) of the cervical spine without contrast 2. CT of the thoracic spine without contrast 3. CT of the lumbar spine without contrast HISTORY: FRACTURE COMPARISON: None available TECHNIQUE: CT of the cervical, thoracic, and lumbar spine was performed without contrast according to standard protocol. FINDINGS: Cervical spine: There is a nondisplaced left inferior occipital bone fracture just lateral to the left occipital condyle. This is better seen on the CT head, and on that exam can be found at series 5 image 12. Straightening of the normal cervical lordosis. Mild levocurvature of the cervical spine.. Vertebral bodies are normal in height without evidence of acute fracture. The craniocervical junction is normal. The intervertebral discs appear normal. No central canal stenosis is seen. The facets appear normal. The uncovertebral joints appear normal. No neural foraminal stenosis is seen. No soft tissue abnormality is identified. Thoracic spine: The alignment is normal. Vertebral bodies are normal in height without evidence of acute fracture. The intervertebral discs appear normal. No central canal stenosis is seen. The facets appear normal. No neural foraminal stenosis is seen. No soft tissue abnormality is identified. Lumbar spine: The alignment is normal. Vertebral bodies are normal in height without evidence of acute fracture. The intervertebral discs appear normal. No central canal stenosis is seen. The facets appear normal. No neural foraminal stenosis is seen. No soft tissue abnormality is identified. Procedure Note Enrique Young MD - 10/03/2018 EXAMINATION: 1. Computed tomography (CT) of the cervical spine without contrast 2. CT of the thoracic spine without contrast 3. CT of the lumbar spine without contrast HISTORY: FRACTURE COMPARISON: None available TECHNIQUE: CT of the cervical, thoracic, and lumbar spine was performed without contrast according to standard protocol. FINDINGS: Cervical spine: There is a nondisplaced left inferior occipital bone fracture justlateral to the left occipital condyle. This is better seen on the CT head, andon that exam can be found at series 5 image 12. Straightening of the normal cervical lordosis. Mild levocurvature of the cervical spine.. Vertebral bodies are normal in height without evidenceof acute fracture. The craniocervical junction is normal. Theintervertebral discs appear normal. No central canal stenosis is seen. The facetsappear normal. The uncovertebral joints appear normal. No neural foraminal stenosis is seen. No soft tissue abnormality is identified. Thoracic spine: The alignment is normal. Vertebral bodies are normal in height without evidence of acute fracture. The intervertebral discs appear normal. No central canal stenosis is seen. The facets appear normal. No neural foraminal stenosis is seen. No soft tissue abnormality is identified. Lumbar spine: The alignment is normal. Vertebral bodies are normal in height without evidence of acute fracture. The intervertebral discs appear normal. No central canal stenosis is seen. The facets appear normal. No neural foraminal stenosis is seen. No soft tissue abnormality is identified. IMPRESSION: 1.Nondisplaced left inferior occipital bone fracture just lateral to the left occipital condyle. 2.No acute fracture in the cervical, thoracic, or lumbar spine. Dictated by Gloria Baron M.D. (resident in diagnostic radiology). This report was approved by Gloria Baron on 10/03/2018 8:08 AM . IDr. ENRIQUE have personally reviewed and interpreted this examination/study. This report was electronically signed by ENRIQUE YOUNG on10/03/2018 8:08 AM . Daryl Vicente Jr., MD CT ORDERABLES * HCG URINE QUALITATIVE - POINT OF CARE (10/02/2018 7:59 PM CDT) HCG Qual Urine Negative Negative [facility] P OCT TESTING QC Verified Yes Yes [facility] POCT TEST[facility] Urine URINE / Unknown 10/02/2018 7 :59 PM CDT Terrence Ervin MD LAB - POINT OF CAR E ORDERABLES Performing Organization Address [facility]/ZIP Co de Phone Number [facility] POCT TESTING [address] [place] [address] * PTT [facility] (10/02/2018 2:25 PM CDT) APTT 25.3 23.0 - 38.4 Seconds 10/02/2018 2:39 PM CDT [facility] Comment: * Please Note: New therapeutic range for heparin therapy. * Suggested therapeutic range for full dose I.V. heparin therapy for venous thromboembolism is 65 to 103 seconds. Blood BLOOD SPECIMEN / Unknown Venipuncture / Unknown 10/02/2018 2:25 PM CDT 10/02/2018 2:27 PM CDT Terrence Ervin MD LAB - COAGULATION ORDERABLES Performing Organization Address [facility]/ZIP Co de Phone Number [address] [phone] * PT-INR [facility] (10/02/2018 2:25 PM CDT) PT 13.5 12.1 - 14.8 Seconds 10/02/2018 2:38 PM CDT [facility] INR 1.1 See Comment 10/02/2018 2:38 PM CDT [facility] Comment: The suggested therapeutic range for standard coumadin (warfarin) therapy is an INR of 2.0-3.0. For high-risk patients (Mechanical Mitral Valve Prosthesis, etc.), the suggested prophylactic therapeutic range is an INR of 2.5-3.5. Blood BLOOD SPECIMEN / Unknown Venipuncture / Unknown 10/02/2018 2:25 PM CDT 10/02/2018 2:27 PM CDT Terrence Ervin MD LAB - COAGULATION ORDERABLES [facility] [address] [place] [address] Care Teams Men'S Swim Coach Relationship Specialty Start Date End Date Pedro David MD [address] [place] [id number] PCP - General 11/19/18
--- OUTSIDE RECORDS SUMMARY | 2024-03-27 08:44 | XMS_ITS | Clinical Summary ---
Author Organization [facility] Address [address] [place] [address] Care Team Providers Care Car Painter Name Role Phone Pedro David MD Primary Care Provider [phone] Source Comments [facility],non-owned Affiliates and Associated Physician Practices is amultiple site organization consisting of ambulatory clinics and hospital sitesin [place], [place], [place] and [place]. This disclosure is being madepursuant to the Care Everywhere program and may not contain all information available regarding this patient. Last updated 17.[facility] Allergies Active Allergy Reactions Criticality Noted Date [...] Blood Pressure 101/64 03/15/2023 10:04 PM DIRECTOR OF GUIDANCE Pulse 69 03/15/2023 10:04 PM DIRECTOR OF GUIDANCE Temperature 36.3 ??C (97.3 ??F) 03/15/2023 10:[address] Respiratory Rate 18 03/15/2023 10:04 PM DIRECTOR OF GUIDANCE Oxygen Saturation 99% 03/15/2023 10:04 PM DIRECTOR OF GUIDANCE Inhaled Oxygen Concentration 21% 10/08/2018 9 :05 AM CDT Weight 52.2 kg (115 lb) 03/15/2023 7:11 PM DIRECTOR OF GUIDANCE Height 160 cm (5' 3 ) 03/15/2023 7:11 PM DIRECTOR OF GUIDANCE Body Mass Index 20.37 03/15/2023 7:11 PM DIRECTOR OF GUIDANCE Plan of Treatment Health Maintenance Due Date Last Done Comments HPV VACCINE (1 - 3-dose series) 2012 HEPATITIS C SCREENING 12/10/2015 DTAP/TDAP/TD VACCINES (1 - Tdap) 2016 HEPATITIS B VACCINE (1 of 3 - 19+ 3-dose series) 2016 COVID-19 VACCINE ( - 2023-2 5 season) 2023 INFLUENZA VACCINE (#1) 2023 DEPRESSION SCREENING 03/05/2024 PAP SMEAR 10/01/2025 10/01/2022 ZOSTER VACCINE (1 of 2) 12/15/2047 HIV SCREENING Completed 10/13/2018 HIB VACCINE Aged Out No longer eligi ble based on patient's age to complete this topic MENINGOCOCCAL (Group B) VACCINE Aged Out No longer eligible based on patient's age to complete this topic MENINGOCOCCAL VACCINE Aged Out No kvng ronda eligible based on patient's age to complete this topic PNEUMOCOCCAL VACCINE Aged Out No long er eligible based on patient's age to complete this topic Procedures Procedure Name Priority Date/Time Associated Diagnosis Comments HIV-1 HIV-2 ANTIGEN/ANTIBODY Routine 10/13/2018 3:15 PM CDT from Last 3 Months or Most Recently Relevant to Health Maintenance Results * HIV-1 HIV-2 ANTIGEN/ANTIBODY (10/13/2018 3:15 PM CDT) HIV Antigen/Antibod y 1 & 2 Non-reacti ve Non-react shu 10/13/2018 4:15 PM CDT [facility] Comment: Neither HIV-1 p24 Antigen nor HIV-1/HIV-2 Antibodies are detected. ? Blood BLOOD SPECIMEN / Unknown Lab Venipuncture / Unknown 10/13/2018 3:15 PM CDT 10/13/2018 3:26 PM CDT Promise Arceo MD LAB - HEMATOLOGY ORD ERABLES [facility] [address] [phone] from Last 3 Months or Most Recently [...] attending physician. Comfort Measures: yes Care Teams Car Painter Relationship Specialty Start Date End Date Pedro David MD [address] [place] [id number] PCP - General 11/19/18
--- OUTSIDE RECORDS SUMMARY | 2024-03-27 08:45 | XMS_ITS | Clinical Summary ---
Author Organization [facility] Address [facility] [facility] [place] [address] [place] [address] Care Team Providers Care Supervisor [employer]ation Name Role Phone An Weller PA-C Primary Care Provider [phone]- [phone] Allergies Active Allergy Reactions Criticality Noted Date Comments Acetylcysteine GI Upset Low 07/29/2019 Medications acetaminophen 325 MG tablet Take 2 tablets (650 mg total) by mouth as needed. 9 Active docusate sodium 100 MG capsule Take 1 capsule (100 mg total) by mouth 2 (two) times daily. Active polyethylene glycol packet Take 240 mLs (17 g total) by mouth daily. 9 Active Senna (SENOKOT) 8.6 MG tablet Take 1 tablet (8.6 mg total) by mouth daily. 9 Active traZODone 100 MG tablet Take 1 tablet (100 mg total) by mouth nightly at bedtime. Active OLANZapine 2.5 MG tablet Take 1 tablet (2.5 mg total) by mouth every morning. Active OLANZapine 5 MG tabletIndicatio ns:Anxiety Take 1 tablet (5 mg total) by mouth every 6 (six) hours as needed. Indications: Feeling Anxious Active prazosin 1 MG capsule Take 3 capsules (3 mg total) by mouth nightly at bedtime. Active gabapentin 100 MG capsuleIndicati ons:take at am and noon Take 1 capsule (100 mg total) by mouth 2 (two) times daily. Indications: take at am and noon Active gabapentin 100 MG capsule Take 2 capsules (200 mg total) by mouth nightly at bedtime. Active vitamin D3 (CHOLECALCIFERO L) 125 mcg Tab Take 1 tablet (5,000 Units total) by mouth daily. Active lithium 300 MG capsule Take 1 capsule (300 mg total) by mouth every morning. Active lithium 300 MG capsule Take 2 capsules (600 mg total) by mouth nightly. Active Acetylcysteine (V-EFSHLN-D-CYS TEINE) 600 MG CapIndications: for cravings Take 600 mg by mouth 2 (two) times a day. Indications: for cravings Active doxylamine-pyri doxine EC (DICLEGIS) 10-10 MG tablet Take two tablets by mouth at bedtime on day 1 and 2. If symptoms persist, take 1 tablet by mouth in morning and 2 tablets by mouth at bedtime on day 3. If symptoms persist, take 1 tablet by mouth in morning, 1 tablet by mouth mid-afternoon, and 2 tablets by mouth at bedtime on day 4. Maximum dose: doxylamine 40 mg/pyridoxine 40 mg (4 tablets) per day. 20 tablet 4 Active ondansetron (ZOFRAN) 4 MG tablet Take 1 tablet (4 mg total) by mouth every 8 (eight) hours as needed for Nausea. 15 tablet 4 Active Social History Tobacco Use Types Packs/Day Years Used Date Smoking Tobacco: Some Days Cigarettes Smokeless Tobacco: Never Tobacco Cessation:Ready to Q uit: Not Asked; Counseling Given: Not Answered Alcohol Use Standard Drinks/Week Comments No 0 (1 standard drink = 0.6 oz pur e alcohol) AUDIT-C Answer Date Recorded Frequency of Alcohol Consumption Never 10/02/2018 Average Number of Drinks Not on file 019 Frequency of Binge Drinking Not on file 09/04 Comments Yes Sex and Gender Information Value Date Recorded Sex Assigned at Not on file Legal Sex Female 8:43 PM CDT Gender Identity Not on file Sexual Orientation Not on file Last Filed Vital Signs Vital Sign Reading Time Taken Comments Blood Pressure 110/63 12/13/2023 12:30 PM CDT Pulse 82 12/13/2023 9:32 AM CDT Temperature 36.9 ??C (98.5 ??F) 12/13/2023 9:36 AM CD T Respiratory Rate 16 12/13/2023 9:32 AM CDT Oxygen Saturation 97% 12/13/2023 12:40 PM CDT Inhaled Oxygen Concentration - - Weight 49.9 kg (110 lb) 12/13/2023 9:32 AM CDT Height 157.5 cm (5' 2 ) 12/13/2023 9:32 AM CDT Body Mass Index 20.12 12/13/2023 9:32 AM CDT Plan of Treatment Health Maintenance Due Date Last Done Comments Annual Physical 2000 Pneumococcal Vaccine: Pediatrics (0 to 5 Years) and At-Risk Patients (6 to 64 Years) (1 of 2 - PCV) 12/15/2003 DTaP, Tdap and Td Vaccines (5 - Tdap) 2008 05/02/1999, 07/13/1998, 05/13/1998, Additional history exists HPV Vaccines (1 - 3-dose series) 2012 Hepatitis B Vaccines (1 of 3 - 19+ 3-dose series) 2016 COVID-19 Vaccine ( - season) 2023 Influenza Adult (#1) 2023 Cervical Cancer Screening Pap Smear (Age 21 to 29) Every 3 Years 11/28/2026 11/29/2023, 10/05/2020, 09/13/2020, Additional history exists Cervical Cancer Screening 11/28/2026 RSV Immunization or 60+ Years (1 - 1-dose 75+ series) 2072 Hepatitis C Completed 10/13/2018 Meningococcal Vaccine Aged Out No kvng ronda eligible based on patient's age to complete this topic RSV Immunizations Under 20 Months Aged Out No longer eligible based on patient's age to complete this topic Insurance [facility] Care Teams Supervisor [employer] Installation Relationship Specialty Start Date End Date An Weller PA-C [address] [place] [address] [address] [place] [address] PCP - General PHYSICIAN MEDICAL AIDE 03/06/23
--- OUTSIDE RECORDS SUMMARY | 2024-03-27 08:45 | XMS_ITS | Clinical Summary ---
Author Organization [facility] Address [address] [place] [address] Care Team Providers Care Education Professor Name Role Phone Unavailable Primary Care Provider Unavailabl e Social History Tobacco Use Types Packs/Day Years Used Date Smoking Tobacco: Never Assessed Comments Unknown Sex and Gender Information Value Date Recorded Sex Assigned at Not on file Legal Sex Female 1:51 PM EDT Gender Identity Not on file Sexual Orientation Not on file Plan of Treatment Not on file
== END 2024-03-22 12:27 | disposition home or self-care (01) ==
LOC: ANHOBPP 09:32
PROVIDERS: Admitting Provider Obstetrics & Gynecology; PCP Physician Assistant Medical; Visit Provider Obstetrics & Gynecology
DX: O46.8X2 Other antepartum hemorrhage, second trimester (principal); Z3A.24 24 weeks gestation of pregnancy
CPT/HCPCS: 76815; 81001; G0378; G0379

== ENCOUNTER 2024-05-15 11:00 | Outpatient (CLI) | payer OTHER, BC, SELFPAY ==
[2024-05-15 11:27] VITALS: BP 103/66; PULSE 109
[2024-05-15 11:30] VITALS: BP 105/52; PULSE 98
[2024-05-15 11:45] VITALS: BP 104/60; PULSE 96
[2024-05-15 12:00] VITALS: BP 104/61; PULSE 98
[2024-05-15 12:06] LABS: OBXCEM ROM Plus Negative (Negative)
[2024-05-15 12:07] LABS: Add Urine Microscopic? NO; Appearance Urine Clear (Clear); Bilirubin Urine Negative (Negative); Blood Urine Negative (Negative); Color Urine Yellow (Yellow); Glucose Urine UA Negative (Negative); Ketones Urine Negative (Negative); Leukocyte Esterase Ur Negative LEU/UL (Negative); Nitrate Urine Negative (Negative); Protein Urine Negative (Negative); Specific Grav Ur 1.018 (1.001-1.035); pH Urine 8.5 (5.0-9.0)
--- OUTSIDE RECORDS SUMMARY | 2024-05-15 13:06 | XMS_ITS | Clinical Summary ---
Author Organization [facility] Address [address] [place] [address] Phone Care Team Providers Care Die Designer Name Role Phone Provider, None Primary Care [...] 88 01/03/2017 1:00 AM CDT Temperature 37.2 C (99 F) 01/02/2017 11:33 PM CDT Respiratory Rate 16 01/03/2017 1:00 AM CDT Oxygen Saturation 99% 01/03/2017 1:00 AM CDT Inhaled Oxygen Concentration - - Weight 45.4 kg (100 lb) 01/02/2017 11:31 PM CDT Height 160 cm (5' 3 ) 01/02/2017 11:31 PM CDT Body Mass Index 17.71 01/02/2017 11:31 PM CDT Plan of Treatment Not on file Insurance MEDICAID [place] Care Teams Die Designer Relationship Specialty Start Date End Date Provider, None [place] PCP - General 01/02/17
--- OUTSIDE RECORDS SUMMARY | 2024-05-15 13:06 | XMS_ITS | Clinical Summary ---
Author Organization [facility] Address [address] [place] [address] Care Team Providers Care Joiner Name Role Phone An Weller PA-C Primary Care Provider [phone]- [phone] Allergies Active Allergy Reactions Criticality Noted Date [...] mg total) by mouth nightly. Active Acetylcysteine (I-CHWDZD-Y-CYS TEINE) 600 MG CapIndications: for cravings Take [...] 82 12/13/2023 9:32 AM CDT Temperature 36.9 C (98.5 F) 12/13/2023 9:36 AM CDT Respiratory Rate 16 12/13/2023 9:32 AM CDT [...] 19+ 3-dose series) 2016 COVID-19 Vaccine ( season) 2023 Influenza Adult (#1) 2023 Cervical Cancer Screening Pap Smear (Age 21 to 29) Every 3 Years 11/28/2026 11/29/2023, 10/05/2020, 09/13/2020, Additional history exists Cervical Cancer Screening 11/28/2026 RSV Immunization or 60+ Years (1 - 1-dose 75+ series) 2072 Hepatitis C Completed 10/13/2018 Meningococcal B Vaccine Aged Out No l onger eligible based on patient's age to complete this topic Meningococcal Vaccine Aged Out No kvng ronda eligible based on patient's age to complete this topic RSV Immunizations Under 20 Months Aged Out No longer eligible based on patient's age to complete this topic Insurance [facility] Care Teams Joiner Relationship Specialty Start Date End Date An Weller PA-C [address] [place] [address] [address] [place] [address] PCP - General 

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
--- OUTSIDE RECORDS SUMMARY | 2024-05-15 13:06 | XMS_ITS | Referral Summary ---
Author Organization [facility] Address [address] [place] [address] Care Team Providers Care Consulting Group Analyst Name Role Phone Pedro David MD Primary Care Provider [phone] [facility],non-owned Affiliates and Associated Physician Practices is amultiple site organization consisting of ambulatory clinics and hospital sitesin [place], [place], [place] and [place]. This disclosure is being madepursuant to the Care Everywhere program and may not contain all information available regarding this patient. Last updated 17.[facility] Allergies Active Allergy Reactions Criticality Noted Date [...] Comments Blood Pressure 101/64 03/15/2023 10:04 PM SHEET METAL ENGINEER Pulse 69 03/15/2023 10:04 PM SHEET METAL ENGINEER Temperature 36.3 C (97.3 F) 03/15/2023 10:04 PM SHEET METAL ENGINEER Respiratory Rate 18 03/15/2023 10:04 PM SHEET METAL ENGINEER Oxygen Saturation 99% 03/15/2023 10:04 PM SHEET METAL ENGINEER Inhaled Oxygen Concentration 21% 10/08/2018 9 :05 AM CDT Weight 52.2 kg (115 lb) 03/15/2023 7:11 PM SHEET METAL ENGINEER Height 160 cm (5' 3 ) 03/15/2023 7:11 PM SHEET METAL ENGINEER Body Mass Index 20.37 03/15/2023 7:11 PM SHEET METAL ENGINEER Functional Status Functional Status Response Date of [...] ve Non-react shu 10/13/2018 4:15 PM CDT [facility] Comment: Neither HIV-1 p24 Antigen nor HIV-1/HIV-2 Antibodies are detected. Blood BLOOD SPECIMEN / Unknown Lab Venipuncture / Unknown 10/13/2018 3:15 PM CDT 10/13/2018 3:26 PM CDT Promise Arceo MD LAB - HEMATOLOGY ORD ERABLES [facility] [address] [place], [place] [id number] [place] [address] from Last 3 Months or Most Recently [...] attending physician. Comfort Measures: yes Care Teams Consulting Group Analyst Relationship Specialty Start Date End Date Pedro David MD [address] [place] [address] PCP - General 11/19/18
--- OUTSIDE RECORDS SUMMARY | 2024-05-15 13:06 | XMS_ITS | Clinical Summary ---
Author Organization [facility] [employer] [facility] Address [address] [place] [address] Care Team Providers Care Inspector Penetrant Name Role Phone Pedro David MD Primary Care Provider [phone] Source Comments [facility] [employer],non-owned Affiliates and Associated Physician Practices is amultiple site organization consisting of ambulatory clinics and hospital sitesin [place], [place], [place] and [place]. This disclosure is being madepursuant to the Care Everywhere program and may not contain all information available regarding this patient. Last updated 17.[facility] [employer] Allergies Active Allergy Reactions Criticality Noted Date [...] Comments Blood Pressure 101/64 03/15/2023 10:04 PM NEEDLE BAR MOLDER Pulse 69 03/15/2023 10:04 PM NEEDLE BAR MOLDER Temperature 36.3 C (97.3 F) 03/15/2023 10:04 PM NEEDLE BAR MOLDER Respiratory Rate 18 03/15/2023 10:04 PM NEEDLE BAR MOLDER Oxygen Saturation 99% 03/15/2023 10:04 PM NEEDLE BAR MOLDER Inhaled Oxygen Concentration 21% 10/08/2018 9 :05 AM CDT Weight 52.2 kg (115 lb) 03/15/2023 7:11 PM NEEDLE BAR MOLDER Height 160 cm (5' 3 ) 03/15/2023 7:11 PM NEEDLE BAR MOLDER Body Mass Index 20.37 03/15/2023 7:11 PM NEEDLE BAR MOLDER Plan of Treatment Health Maintenance Due Date Last Done Comments PAP SMEAR 1997 HPV VACCINE (1 - 3-dose series) 2012 HEPATITIS C SCREENING 12/10/2015 DTAP/TDAP/TD VACCINES (1 - Tdap) 2016 HEPATITIS B VACCINE (1 of 3 - 19+ 3-dose series) 2016 COVID-19 VACCINE ( - 2023-2 5 season) 2023 INFLUENZA VACCINE (#1) 2023 DEPRESSION SCREENING 03/05/2024 ZOSTER VACCINE (1 of 2) 12/15/2047 HIV SCREENING Completed 10/13/2018 HIB VACCINE Aged Out No longer eligi ble based on patient's age to complete this topic MENINGOCOCCAL (Group B) VACC INE SHARED DECISION-MAKING Aged Out No longer eligibl e based on patient's age to complete this topic MENINGOCOCCAL GROUPS A/C/Y/W VACCINE Aged Out No longer eligible b ased on patient's age to complete this topic [...] ve Non-react shu 10/13/2018 4:15 PM CDT [facility] Comment: Neither HIV-1 p24 Antigen nor HIV-1/HIV-2 Antibodies are detected. Blood BLOOD SPECIMEN / Unknown Lab Venipuncture / Unknown 10/13/2018 3:15 PM CDT 10/13/2018 3:26 PM CDT Promise Arceo MD LAB - HEMATOLOGY ORD ERABLES [facility] [address] [phone] from Last 3 Months or Most Recently [...] physician. Comfort Measures: yes Care Teams Inspector Penetrant Relationship Specialty Start Date End Date Pedro David MD [address] [place] [id number] PCP - General 11/19/18
--- OUTSIDE RECORDS SUMMARY | 2024-05-15 13:06 | XMS_ITS | Clinical Summary ---
Author Organization [facility] Address [address] [place] [address] Care Team Providers Care Photoengraving Etcher Name Role Phone Unavailable Primary Care Provider [...]
--- OUTSIDE RECORDS SUMMARY | 2024-05-15 13:06 | XMS_ITS | Patient Health Summary ---
Author Organization [facility] Address [address] [place] [address] Care Team Providers Care Student Affairs Vice President Name Role Phone Pedro David MD Primary Care Provider [phone] Note from [facility],non-owned Affiliates and Associated Physician Practices is amultiple site organization consisting of ambulatory clinics and hospital sitesin [place], [place], [place] and [place]. This disclosure is being madepursuant to the Care Everywhere program and may not contain all information available regarding this patient. Last updated 17.[facility] Allergies * Blueberry Flavor(GI Discomfort) -Low Criticality [...] Comments Blood Pressure 101/64 03/15/2023 10:04 PM BLENDING MACHINE OPERATOR Pulse 69 03/15/2023 10:04 PM BLENDING MACHINE OPERATOR Temperature 36.3 C (97.3 F) 03/15/2023 10:04 PM BLENDING MACHINE OPERATOR Respiratory Rate 18 03/15/2023 10:04 PM BLENDING MACHINE OPERATOR Oxygen Saturation 99% 03/15/2023 10:04 PM BLENDING MACHINE OPERATOR Inhaled Oxygen Concentration 21% 10/08/2018 9 :05 AM CDT Weight 52.2 kg (115 lb) 03/15/2023 7:11 PM BLENDING MACHINE OPERATOR Height 160 cm (5' 3 ) 03/15/2023 7:11 PM BLENDING MACHINE OPERATOR Body Mass Index 20.37 03/15/2023 7:11 PM BLENDING MACHINE OPERATOR Procedures * CT HEAD WO CONTRAST(Performed 03/16/2023) [...] for supervision of normal , antepartum, unspecified ([facility]) * URINALYSIS REFLEX MICROSCOPIC REFLEX CULTURE(Performed 10/05/2020) Performed for Encounter for supervision of normal , antepartum, unspecified ([facility]) * CULTURE URINE(Performed 10/05/2020) Performed for Encounter for supervision of normal , antepartum, unspecified ([facility]) * CHLAMYDIA + GC AMPLIFIED PROBE(Performed 10/05/2020) Performed for Encounter for supervision of normal , antepartum, unspecified ([facility]) * TRICHOMONAS RAPID TEST(Performed 10/05/2020) Performed for Encounter for supervision of normal , antepartum, unspecified ([facility]) * PROTEIN URINE QUALITATIVE AUTO(Performed 10/05/2020) Performed for Encounter for supervision of normal , antepartum, unspecified ([facility]) * KETONES QUALITATIVE URINE AUTO(Performed 10/05/2020) Performed for Encounter for supervision of normal , antepartum, unspecified ([facility]) * AUDIOLOGY/TYMPANOMETRY ORDER(Performed 10/08/2019) * AUDIOLOGY/TYMPANOMETRY ORDER(Performed [...] CT HEAD WO CONTRAST (03/16/2023 2:08 AM BLENDING MACHINE OPERATOR) Only the most recent of5 resultswithin the time period is included. Anatomical Region Laterality Modality Head Computed Tomogra phy 03/16/2023 2:11 AM BLENDING MACHINE OPERATOR Impressions 03/16/2023 8:53 AM BLENDING MACHINE OPERATOR IMPRESSION: 1.No acute intracranial process or hemorrhage. 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 > Dictated by Angel Felix M.D. (vice president process) I, Katalina Knight MD have personally reviewed and interpreted this examination/study. > Interpreting Provider: Katalina Knight MD on 03/16/2023 8:53 AM Narrative 03/16/2023 8:53 AM BLENDING MACHINE OPERATOR PROCEDURE: CT HEAD WO CONTRAST, DATE/TIME OF EXAM: 03/16/2023 2:08 AM, LOCATION [facility] INDICATION: F07.81: Post concussion syndrome ADDITIONAL [...] DATE/TIME OF EXAM: 03/16/2023 2:08 AM, LOCATION [facility] INDICATION: F07.81: Post concussion syndrome ADDITIONAL [...] injury. > Dictated by Angel Felix M.D. (vice president process) I, Katalina Knight MD have personally reviewed and interpreted this examination/study. > Interpreting Provider: Katalina Knight MD on 03/16/2023 8:[address] ORDERABLES * (ABNORMAL) DIFFERENTIAL MANUAL (03/15/2023 8:23 PM BLENDING MACHINE OPERATOR) Only the most recent of2 resultswithin the time period is included. Neutrophil % 36(L) 41 - 74 % 03/15/2023 10:05 PM [facility] Lymphocyte % 52(H) 17 - 47 % 03/15/2023 10:05 PM [facility] Monocyte % 12(H) 3 - 11 % 03/15/2023 10:05 PM [facility] Neutrophil Absolute 1.69 1.60 - 7.50 x10E9/L 03/15/2023 10:05 PM [facility] Lymphocyte Absolute 2.44 1.00 - 4.40 x10E9/L 03/15/2023 10:05 PM [facility] Monocyte Absolute 0.56 0.15 - 1.00 x10E9/L 03/15/2023 10:05 PM [facility] RBC Morphology REVIEWED 03/15/2023 10:05 PM [facility] Ovalocytes MODERATE(A) (none) 03/15/2023 10:05 PM [facility] Tear Drop Cells MODERATE(A) (none) 03/15/2023 10:05 PM [facility] Blood BLOOD SPECIMEN / Unknown Venipuncture / Unknown 03/15/2023 8:23 PM BLENDING MACHINE OPERATOR 03/15/2023 8:46 PM BLENDING MACHINE OPERATOR Jose Das MD LAB - HEMATOLOGY ORD ERABLES [facility] [address] [place] [address] [phone] * (ABNORMAL) CBC W AUTO DIFFERENTIAL (03/15/2023 8:23 PM BLENDING MACHINE OPERATOR) Only the most recent of11 resultswithin the time period is included. WBC 4.7 4.0 - 10.7 x10E9/L 03/15/2023 10:05 PM [facility] RBC Count 4.31 3.90 - 5.20 x10E12/L 03/15/2023 10:05 PM [facility] Hemoglobin 13.0 11.9 - 15.8 g/dL 03/15/2023 10:05 PM [facility] Hematocrit 38.0 34.8 - 46.1 % 03/15/2023 10:05 PM [facility] MCV 88.2 80.0 - 98.0 fL 03/15/2023 10:05 PM [facility] MCH 30.2 26.7 - 33.6 pg 03/15/2023 10:05 PM [facility] MCHC 34.2 31.7 - 36.3 g/dL 03/15/2023 10:05 PM [facility] RDW-CV 11.6 11.3 - 14.8 % 03/15/2023 10:05 PM [facility] Platelet Count 139(L) 150 - 420 x10E9/L 03/15/2023 10:05 PM [facility] MPV 11.2 7.8 - 11.4 fL 03/15/2023 10:05 PM [facility] Blood BLOOD SPECIMEN / Unknown Venipuncture / Unknown 03/15/2023 8:23 PM BLENDING MACHINE OPERATOR 03/15/2023 8:46 PM BLENDING MACHINE OPERATOR Jose Das MD LAB - HEMATOLOGY ORD ERABLES [facility] [address] [place] [address], [facility] [phone] * (ABNORMAL) COMPREHENSIVE METABOLIC PANEL (03/15/2023 8:23 PM BLENDING MACHINE OPERATOR) Only the most recent of2 resultswithin the time period is included. BUN 9 7 - 26 mg/dL 03/15/2023 9:16 PM [facility] Creatinine 0.82 0.56 - 0.96 mg/dL 03/15/2023 9:16 PM [facility] Sodium 140 136 - 145 mmol/L 03/15/2023 9:16 PM [facility] Potassium 4.8(H) 3.5 - 4.5 mmol/L 03/15/2023 9:16 PM [facility] Chloride 107 98 - 107 mmol/L 03/15/2023 9:16 PM [facility] CO2 29 22 - 29 mmol/L 03/15/2023 9:16 PM [facility] Glucose 86 70 - 115 mg/dL 03/15/2023 9:16 PM [facility] Calcium 9.1 8.4 - 10.2 mg/dL 03/15/2023 9:16 PM [facility] Protein Total 7.0 6.0 - 8.3 g/dL 03/15/2023 9:16 PM [facility] Albumin 4.0 3.4 - 5.0 g/dL 03/15/2023 9:16 PM [facility] Bilirubin Total 0.3 0.2 - 1.2 mg/dL 03/15/2023 9:16 PM [facility] Alkaline Phosphatase 50 40 - 150 U/L 03/15/2023 9:16 PM [facility] ALT 22 5 - 55 U/L 03/15/2023 9:16 PM [facility] AST 19 5 - 34 U/L 03/15/2023 9:16 PM [facility] Anion Gap 4(L) 6 - 16 03/15/2023 9:16 PM [facility] BUN/Creatinine Ratio 11 7 - 23 03/15/2023 9:16 PM [facility] Osmolality Calculated 288 275 - 295 mOsm/kg 03/15/2023 9:16 PM [facility] Albumin/Globulin Ratio 1.3 1.1 - 2.3 03/15/2023 9:16 PM [facility] eGFR by CKD-EPI >90 >=90 mL/min/1.7 3 m2 03/15/2023 9:16 PM [facility] Blood BLOOD SPECIMEN / Unknown Venipuncture / Unknown 03/15/2023 8:23 PM BLENDING MACHINE OPERATOR 03/15/2023 8:46 PM [facility] Jose Das MD LAB - CHEMISTRY NUPUR LEE [facility] Organization Address City/State/ZIP Co de Phone Number [facility] [address] [place] [phone] [phone] * HCG BETA BLOOD QUANTITATIVE (03/15/2023 8:23 PM BLENDING MACHINE OPERATOR) Beta-hCG Total Quantitative <3 mIU/mL 03/15/2023 9:20 PM [facility] Comment: HCG Numeric Result Interpretation: Non- Females: < 5 mIU/mL Post-Menopausal Females: < 7 mIU/mL This assay is cleared for use in the early detection of only. It is not approved for any other uses such as tumor marker screening, tumor marker monitoring, etc. and should not be used for any other purposes. Blood BLOOD SPECIMEN / Unknown Venipuncture / Unknown 03/15/2023 8:23 PM BLENDING MACHINE OPERATOR 03/15/2023 8:46 PM BLENDING MACHINE OPERATOR Jose Das MD LAB - CHEMISTRY NUPUR LEE [facility] Organization Address City/State/ZIP Co de Phone Number [facility] [address] [address], [facility] [phone] * IMAGING RADIOLOGY XRAY RESULTS ORDER (10/11/2020 8:00 PM CDT) Anatomical Region Laterality Modality Other Narrative 10/11/2020 8:00 PM CDT Ordered by an unspecified provider. Scanned Document IMAGING * SONOGRAM - LIMITED (10/05/2020 10:10 PM CDT) Anatomical Region Laterality Modality Other Narrative 10/05/2020 10:10 PM CDT See Israel MD 10/05/2020 10:13 PM Bedside OB Ultrasound Indications: Patient Active Problem List: Epidural hematoma SDH (subdural hematoma) Fracture of occipital condyle Intraparenchymal hematoma of right side of brain due to trauma Traumatic epidural hematoma with loss of consciousness of 30 minutes or less Neck pain Acute respiratory failure Sensorineural hearing loss (SNHL) of left ear with unrestricted hearing of right ear Encounter for supervision of normal , antepartum Bedside ultrasound: Presentation: vertex Placenta: anterior Amniotic fluid index 7.15, FWB reassuring, continue outpatient care and testing as indicated. See Israel MD 10/05/2020 10:12 PM Deb Deng MD [facility] ORDERABLES * NONSTRESS TEST (10/05/2020 10:09 PM CDT) Narrative Janina Cardenas MD - 10/05/2020 10:09 PM CDT Janina Cardenas MD 10/05/2020 10:20 PM Name: Mirtha Woo Date of : 1995 Today's Date: 10/05/2020 33w5d NST RESULTS ([place]) OBJECTIVE FINDINGS Temp: 97.3 F (36.3 C), , Resp: 16, BP: 118/69 NST Indication(s): labor Uterine Irritability: Yes Contractions: Irregular Frequency: 3-4 Duration (sec) Range: 60-100 Perceived Intensity: Mild OBJECTIVE FINDINGS Movement: Present Monitoring Mode: External Baseline: 130 BPM Variability: Moderate Decelerations: None Accelerations: Yes OTHER INFORMATION Shiloh Johnson RN Non-Stress Test [facility] Patient Name: Mirtha Woo LMP: No LMP recorded (lmp unknown). Patient is . Indications: Other rule out PTL NST date: 10/05/2020 NST duration: >20 mins Interpretation: Baseline: 145 beats/minute, moderate variability Reactive Contractions: Irregular q3-5 minutes Decelerations: rare variable Impression and Plan: FWB reassuring, continue monitoring as scheduled. See Israel MD 10/05/2020 10:14 PM Deb Deng MD OB [facility] ORDERABLES * (ABNORMAL) URINE MICROSCOPIC ONLY REFLEX TO CULTURE (10/05/2020 7:48 PM CDT) Reflex Status Culture to follow 10/05/2020 8:04 PM CDT [facility] RBC UA 0-2 None Seen, 0-2, 3-5 # /hpf 10/05/2020 8:04 PM CDT [facility] WBC UA 6-10(A) None Seen, 0-5 # /hpf 10/05/2020 8:04 PM CDT [facility] Bacteria UA Trace(A) None Seen 10/05/2020 8:04 PM CDT [facility] Squamous Epithelial Cells 11-20(A) None Seen, 0-2, 3-5 /hpf 10/05/2020 8:04 PM CDT [facility] Mucus UA 1+ /LPF 10/05/2020 8:04 PM CDT [facility] Urine URINE SPECIMEN OBTAINED BY CLEAN CATCH PROCEDURE / Unknown Collection / Unknown 10/05/2020 7:48 PM CDT 10/05/2020 7:56 PM CDT Narrative [facility] - 10/05/2020 8:04 PM CDT Deb Deng MD LAB - URINALYSIS ORD ERABLES [facility] [address] [place] [address] * CHLAMYDIA + GC AMPLIFIED PROBE (STL) (10/05/2020 7:48 PM CDT) Chlamydia Amplified Probe Negative Negative 10/06/2020 6:19 AM CDT [facility] GC Amplified Probe Negative Negative 10/06/2020 6:19 AM CDT [facility] Microbiology ENTIRE VAGINA / Unknown Collection / Unknown 10/05/2020 7:48 PM CDT 10/05/2020 7:56 PM CDT Narrative [facility] - 10/06/2020 6:19 AM CDT Results based on detection/no detection of ribosomal RNA by amplified method. Deb Deng MD LAB - MICROBIOLOGY O RDERABLES [facility] [address] [place] [address], [facility] [phone] * (ABNORMAL) URINALYSIS REFLEX MICROSCOPIC REFLEX CULTURE (10/05/2020 7:48 PM CDT) Color UA Yellow Straw, Yellow 10/05/2020 8:02 PM CDT [facility] Clarity UA Slt Cloudy(A) Clear 10/05/2020 8:02 PM CDT [facility] Glucose UA Negative Negative 10/05/2020 8:02 PM CDT [facility] Bilirubin UA Negative Negative 10/05/2020 8:02 PM CDT [facility] Ketone UA Negative Negative 10/05/2020 8:02 PM CDT [facility] Specific [place] UA 1.015 1.005 - 1.030 10/05/2020 8:02 PM CDT [facility] Blood UA Negative Negative 10/05/2020 8:02 PM CDT [facility] pH UA 7.0 5.0 - 8.0 pH 10/05/2020 8:02 PM CDT [facility] Protein UA Negative Negative 10/05/2020 8:02 PM CDT [facility] Urobilinogen UA Negative Negative mg/dL 10/05/2020 8:02 PM CDT [facility] Nitrite UA Negative Negative 10/05/2020 8:02 PM CDT [facility] Leukocyte UA 2+(A) Negative 10/05/2020 8:02 PM CDT [facility] Urine Microscopy Urine microscopy to follow 10/05/2020 8:02 PM CDT [facility] Reflex Status Culture to follow 10/05/2020 8:02 PM CDT [facility] Urine URINE SPECIMEN OBTAINED BY CLEAN CATCH PROCEDURE / Unknown Collection / Unknown 10/05/2020 7:48 PM CDT 10/05/2020 7:56 PM CDT Narrative [facility] - 10/05/2020 8:02 PM CDT Deb Deng MD LAB - URINALYSIS ORD ERABLES Performing Organization Address City/[facility]/ZIP Co de Phone Number [facility] [address] [place] [phone] * TRICHOMONAS RAPID TEST (10/05/2020 7:48 PM CDT) Trichomonas Rapid Test Negative Negative 10/05/2020 8:11 PM CDT [facility] Microbiology VAGINAL SWAB / Unknown Collection / Unknown 10/05/2020 7:48 PM CDT 10/05/2020 7:56 PM CDT Deb Deng MD LAB - MICROBIOLOGY O CORNELIUS Performing Organization Address [facility] Co de Phone Number [facility] [address] [place] [phone] * CULTURE URINE (10/05/2020 7:48 PM CDT) Pathologist [facility] Culture Urine 50,000-100,000 CFU/mL urogenital jessie BILLIE 10/07/2020 9:51 AM CDT [facility] Urine URINE SPECIMEN OBTAINED BY CLEAN CATCH PROCEDURE / Unknown Collection / Unknown 10/05/2020 7:48 PM CDT 10/05/2020 7:56 PM CDT Deb Deng MD LAB - MICROBIOLOGY O CORNELIUS [facility] [address] [place] [address] [phone] * PROTEIN URINE QUALITATIVE AUTO (10/05/2020 7:33 PM CDT) Protein UA Negative Negative 10/05/2020 7:52 PM CDT [facility] Urine URINE / Unknown Collection / Unknown 10/05/2020 7:33 PM CDT 10/05/2020 7:43 PM CDT Narrative [facility] - 10/05/2020 7:52 PM CDT Deb Deng MD LAB - URINALYSIS ORD ERABLES Performing Organization Address [facility] Co de Phone Number [facility] [address] [place] [phone] * KETONES QUALITATIVE URINE AUTO (10/05/2020 7:33 PM CDT) Ketone UA Negative Negative 10/05/2020 7:52 PM CDT [facility] Urine URINE / Unknown Collection / Unknown 10/05/2020 7:33 PM CDT 10/05/2020 7:43 PM CDT Narrative [facility] - 10/05/2020 7:52 PM CDT Deb Deng MD LAB - URINALYSIS ORD ERABLES Performing Organization Address [facility] Co de Phone Number [facility] [address] [place] [phone] * AUDIOLOGY/TYMPANOMETRY ORDER (10/08/2019 9:01 AM CDT) [...] TEMPORAL BONES WO CONTRAST (03/17/2019 5:26 PM BLENDING MACHINE OPERATOR) Anatomical Region Laterality Modality Head Computed Tomogra phy 03/18/2019 7:11 AM BLENDING MACHINE OPERATOR Impressions 03/18/2019 10:09 AM BLENDING MACHINE OPERATOR IMPRESSION: No apparent fracture. Noted trace left mastoid effusion. Dr. DRE Dorado have personally reviewed and interpreted this examination/study. This report was electronically signed by DRE DAMON on 03/18/2019 10:09 AM . Narrative 03/18/2019 10:09 AM BLENDING MACHINE OPERATOR EXAMINATION: Computed tomography (CT) of the temporal [...] * HCG URINE QUALITATIVE (03/17/2019 4:21 PM BLENDING MACHINE OPERATOR) Test Urine Negative Negative 03/17/2019 5:17 PM BLENDING MACHINE OPERATOR [facility] Urine URINE / Unknown 03/17/2019 4 :21 PM BLENDING MACHINE OPERATOR 03/17/2019 5:12 PM BLENDING MACHINE OPERATOR Kar Main MD LAB - URINALYSIS ORD ERABLES [facility] [address] [phone] * CARDIAC PROCEDURE ORDER (10/16/2018 12:40 PM CDT) Narrative 10/16/2018 12:40 PM CDT Ordered by an unspecified provider. Scanned Document CARDIAC SERVICES ORD ERABLES * C. TRACHOMATIS + N. GONORRHOEAE ALDO (10/13/2018 4:59 PM CDT) Chlamydia Trachomatis ALDO Not Detected Not Detected 10/14/2018 4:31 PM CDT [facility] Neisseria Gonorrhoeae ALDO Not Detected Not Detected 10/14/2018 4:31 PM CDT [facility] Microbiology URINE / Unknown Collection / Unknown 10/13/2018 4:59 PM CDT 10/13/2018 4:59 PM CDT Narrative [facility] - 10/14/2018 4:31 PM CDT This analysis was performed using Gen-Probe Aptima Combo 2. This methodology is U.S. FDA approved for Chlamydia trachomatis and Neisseria gonorrhoeae testing for urine and urogenital swabs from men and women, and cervical cells submitted in ThinPrep vials. Performance characteristics for rectal and pharyngeal swabs were determined by the [facility] at [facility]. Testing by Gen-Probe Aptima Combo 2 on these sample types has not been cleared or approved by the U.S. FDA. The FDA has determined that such clearance approval is not necessary. This test is used for clinical purposes and should not be regarded as investigational or for research. This laboratory is certified under the Clinical Laboratory Improvements Amendments of 1988 (CLIA 1988), as qualified to perform high complexity laboratory testing. Promise Arceo MD LAB - MICROBIOLOGY O RDERABLES [facility] [address] [place] [address], [facility] [phone] * HIV-1 HIV-2 ANTIGEN/ANTIBODY (10/13/2018 3:15 PM CDT) HIV Antigen/Antibod y 1 & 2 Non-reacti ve Non-react shu 10/13/2018 4:15 PM CDT [facility] Comment: Neither HIV-1 p24 Antigen nor HIV-1/HIV-2 Antibodies are detected. Blood BLOOD SPECIMEN / Unknown Lab Venipuncture / Unknown 10/13/2018 3:15 PM CDT 10/13/2018 3:26 PM CDT Promise Arceo MD LAB - HEMATOLOGY ORD ERABLES [facility] [address] [place] [address], [facility] [phone] * SYPHILIS ANTIBODY CASCADING REFLEX (10/13/2018 3:15 PM CDT) Treponema pallidum Antibody Non-react shu Non-react shu 10/13/2018 4:23 PM CDT [facility] Comment: No Laboratory evidence of syphilis infection. Note: Circulating antibodies may be low or undetectable in early infection. If recent exposure is suspected, re-draw sample in 2-4 weeks and repeat testing. Blood BLOOD SPECIMEN / Unknown 10/13/2018 3:15 PM CDT 10/13/2018 3:41 PM CDT Janes Hernandez DO LAB - SEROLOGY NUPUR LEE [facility] [address] [place] [address] * (ABNORMAL) HERPES SIMPLEX 1+2 ANTIBODY IGG/IGM PANEL (10/13/2018 3:15 PM CDT) Pathologist [facility] Herpes Simplex Virus Antibody IgM I/II Combination Ratio 1.45(H) 0.00 - 0.90 Ratio 10/16/2018 7:08 AM CDT [facility] ([facility]) Comment: Negative <0.91 Equivocal 0.91 - 1.09 Positive >1.09 Herpes Simplex Virus I Antibody IgG Type Specific Index <0.91 0.00 - 0.90 index 10/16/2018 7:08 AM CDT [facility] ([facility]) Comment: Negative <0.91 Equivocal 0.91 - 1.09 Positive >1.09 Note: Negative indicates no antibodies detected to HSV-1. Equivocal may suggest early infection. If clinically appropriate, retest at later date. Positive indicates antibodies detected to HSV-1. Herpes Simplex Virus 2 Antibody IgG Type Specific 6.71(H) 0.00 - 0.90 index 10/16/2018 7:08 AM CDT [facility] ([facility]) Comment: Negative <0.91 Equivocal 0.91 - 1.09 Positive >1.09 Note: Negative indicates no antibodies detected to HSV-2. Equivocal may suggest early infection. If clinically appropriate, retest at later date. Positive indicates antibodies detected to HSV-2. Blood BLOOD SPECIMEN / Unknown Lab Venipuncture / Unknown 10/13/2018 3:15 PM CDT 10/13/2018 3:26 PM CDT Narrative [facility] ([facility]) - 10/16/2018 7:08 AM CDT Performed at: - [facility] [address] [place], [place] [id number] Radio Interference Supervisor: Jac Pierce PhD, Phone: [phone] Promise Arceo MD LAB - CHEMISTRY NUPUR LEE Performing Organization Address City/[facility]/ZIP Co de Phone Number [facility] ([facility]) [address] [place] [address] * HEPATITIS B SURFACE ANTIBODY (10/13/2018 3:15 PM CDT) [facility] Hepatitis B Virus Surface Antibody Non-react shu Non-react shu 10/13/2018 4:15 PM CDT [facility] Comment: < 8 mIU/mL Hepatitis B surface Antibody (HBsAb). Nonreactive for HBsAb - individual is considered not immune to Hepatitis B Virus infection. Hepatitis B Surface Antibody Quantitative 4.9 <8.0 mIU/mL 10/13/2018 4:15 PM CDT [facility] Comment: Hepatitis B Surface Antibody Numeric Result Interpretation: Nonreactive: <8.0 mIU/mL Indeterminate: 8.0 - 12.0 mIU/mL Reactive: >12.0 mIU/mL Blood BLOOD SPECIMEN / Unknown Lab Venipuncture / Unknown 10/13/2018 3:15 PM CDT 10/13/2018 3:26 PM CDT Promise Arceo MD LAB - CHEMISTRY NUPUR LEE [address] [phone] * (ABNORMAL) BASIC METABOLIC PANEL (CALCIUM TOTAL) (10/11/2018 2:09 AM CDT) Only the most recent of9 resultswithin the time period is included. [facility] BUN 8 7 - 26 mg/dL 10/11/2018 3:00 AM CDT [facility] Creatinine 0.6 0.6 - 1.2 mg/dL 10/11/2018 3:[address] [facility] Sodium 139 136 - 145 mmol/L 10/11/2018 3:00 AM [facility] Potassium 3.6 3.5 - 4.5 mmol/L 10/11/2018 3:00 AM [facility] Chloride 105 98 - 107 mmol/L 10/11/2018 3:00 AM [facility] CO2 21(L) 22 - 29 mmol/L 10/11/2018 3:00 AM [facility] Glucose 93 70 - 115 mg/dL 10/11/2018 3:00 AM [facility] Calcium 9.4 8.4 - 10.2 mg/dL 10/11/2018 3:00 AM [facility] Anion Gap 17 8 - 18 10/11/2018 3:00 AM [facility] BUN/Creatinine Ratio 13 7 - 23 10/11/2018 3:00 AM [facility] Osmolality Calculated 286 270 - 300 mOsm/kg 10/11/2018 3:00 AM [facility] eGFR >60 >60 mL/min/1.7 3 m2 10/11/2018 3:00 AM [facility] Blood BLOOD SPECIMEN / Unknown Lab Venipuncture / Unknown 10/11/2018 2:09 AM CDT 10/11/2018 2:37 AM CDT Maria Fernanda Larose MD LAB - CHEMISTRY NUPUR LEE [facility] [address] [place] [address] * PHOSPHORUS BLOOD (10/11/2018 2:09 AM CDT) Only the most recent of9 resultswithin the time period is included. Phosphorus 4.4 2.3 - 4.7 mg/dL 10/11/2018 3:00 AM [facility] Blood BLOOD SPECIMEN / Unknown Lab Venipuncture / Unknown 10/11/2018 2:09 AM CDT 10/11/2018 2:37 AM CDT Maria Fernanda Larose MD LAB - CHEMISTRY NUPUR LEE Performing Organization Address [facility] Co de Phone Number [address] [phone] * MAGNESIUM BLOOD (10/11/2018 2:09 AM CDT) Only the most recent of9 resultswithin the time period is included. Magnesium 1.7 1.6 - 2.6 mg/dL 10/11/2018 3:00 AM CDT [facility] Blood BLOOD SPECIMEN / Unknown Lab Venipuncture / Unknown 10/11/2018 2:09 AM CDT 10/11/2018 2:37 AM CDT Jose Guadalupe Esquivel MD LAB - CHEMISTRY NUPUR LEE Performing Organization Address [facility] Co de Phone Number [address] [phone] * OSMOLALITY BLOOD (10/09/2018 12:14 PM CDT) Only the most recent of14 resultswithin the time period is included. Osmolality 287 270 - 300 mOsm/kg 10/09/2018 1:13 PM CDT [facility] Blood BLOOD SPECIMEN / Unknown Venipuncture / Unknown 10/09/2018 12:14 PM CDT 10/09/2018 12:23 PM CDT Srinivasan Guallpa DO LAB - CHEMISTRY NUPUR LEE Performing Organization Address [facility]/[place] [address], [facility] [phone] * SODIUM BLOOD (10/09/2018 12:14 PM CDT) Only the most recent of24 resultswithin the time period is included. Sodium 138 136 - 145 mmol/L 10/09/2018 12:39 PM CDT [facility] Blood BLOOD SPECIMEN / Unknown Venipuncture / Unknown 10/09/2018 12:14 PM CDT 10/09/2018 12:23 PM CDT Srinivasan Guallpa DO LAB - CHEMISTRY NUPUR LEE [address] [phone] * XR CHEST 1VW PORTABLE (10/09/2018 6:07 [...] normal. Dictated by Ron Velasquez MD (Resident). IDr. ALISSON have personally reviewed and interpreted this examination/study. This report was electronically signed by ALISSON FOSTER on 10/09/2018 2:08 PM . Narrative 10/09/2018 2:08 PM CDT EXAMINATION: XR CHEST 1VW PORTABLE HISTORY: Intubated COMPARISON: Comparison is made with a study from 10/08/2018. Procedure Note Alisson Foster DO - 10/09/2018 EXAMINATION: XR CHEST 1VW [...] ALISSON FOSTER on 10/09/2018 12:46 PM . Narrative 10/09/2018 12:46 PM CDT EXAMINATION: FL SWALLOWING FUNCTION STUDY HISTORY: swallow study per asphalt patcher COMPARISON: No prior study is available for comparison. Procedure Note Alisson Foster, DO - 10/09/2018 EXAMINATION: FL SWALLOWING FUNCTION STUDY HISTORY: swallow study per asphalt patcher COMPARISON: No prior study is available for [...] 7.35 - 7.45 10/07/2018 11:51 PM CDT [facility] pCO2 Arterial 27(L) 35 - 45 mmHg 10/07/2018 11:51 PM CDT [facility] pO2 Arterial 173(H) 82 - 106 mmHg 10/07/2018 11:[address] [facility] HCO3 Arterial 20.7(L) 22.0 - 26.0 mmol/L 10/07/2018 11:51 PM [facility] TCO2 Arterial 21.5(L) 25.0 - 29.0 mmol/L 10/07/2018 11:51 PM [facility] Base Excess Arterial -1.6 -2.0 - 2.0 mmol/L 10/07/2018 11:51 PM [facility] Hemoglobin Arterial 9.8(L) 12.0 - 15.5 g/dL 10/07/2018 11:51 PM [facility] Oxyhemoglobin Arterial 97.7 95.0 - 100.0 % 10/07/2018 11:51 PM [facility] Carboxyhemoglobin 0.2 0.0 - 3.0 % 10/07/2018 11:51 PM [facility] Methemoglobin 0.3 0.0 - 2.0 % 10/07/2018 11:51 PM [facility] FI O2 Arterial 40.0 % 10/07/2018 11:51 PM [facility] Blood, arterial ARTERIAL BLOOD SPECIMEN / Unknown Arterial Puncture / Unknown 10/07/2018 11:42 PM CDT 10/07/2018 11:48 PM CDT Srinivasan Guallpa DO LAB - BLOOD GASES OR DERABLES Performing Organization Address [facility]/State/[facility] Co de Phone Number [address] [phone] * (ABNORMAL) CBC W/O DIFFERENTIAL (10/06/2018 11:45 AM CDT) WBC 10.5 3.5 - 10.5 10 3/uL 10/06/2018 12:[address] [facility] Comment:Confirmed by repeat analysis. RBC 3.93 3.90 - 5.00 10 6/uL 10/06/2018 12:14 PM [facility] Hemoglobin 11.7(L) 12.0 - 15.5 g/dL 10/06/2018 12:14 PM [facility] Hematocrit 35.2 35.0 - 45.0 % 10/06/2018 12:14 PM [facility] MCV 89.6 81.0 - 97.0 fL 10/06/2018 12:14 PM CDT [facility] MCH 29.8 28.0 - 34.0 pg 10/06/2018 12:14 PM T [facility] MCHC 33.2 32.0 - 36.0 g/dL 10/06/2018 12:14 PM T [facility] Platelet Count 178 150 - 400 10 3/uL 10/06/2018 12:14 PM T [facility] RDW-SD 40.7 36.0 - 50.0 fL 10/06/2018 12:14 PM T [facility] RDW-CV 12.4 11.2 - 14.8 % 10/06/2018 12:14 PM T [facility] MPV 10.9 9.3 - 12.8 fL 10/06/2018 12:14 PM T [facility] nRBC Absolute 0.00 0 10 3/uL 10/06/2018 12:14 PM T [facility] nRBC Auto 0.0 0 /100 WBC 10/06/2018 12:14 PM [facility] Blood BLOOD SPECIMEN / Unknown Venipuncture / Unknown 10/06/2018 11:45 AM CDT 10/06/2018 11:57 AM CDT Newton Jones MD LAB - HEMATOLOGY ORD ERABLES Performing Organization Address [facility]/State/[facility] Co de Phone Number [address] [phone] * XR ABDOMEN KUB PORTABLE (10/05/2018 10:20 PM CDT) Anatomical Region Laterality Modality Abdomen Radiographic Jahaira ging 10/06/2018 8:32 AM CDT Impressions 10/06/2018 10:48 AM CDT IMPRESSION: A gastric tube superimposes the stomach. Report dictated by Keith Blanton MD (vice president of human resources). I, Dr. ALISSON FOSTER have personally reviewed and interpreted this examination/study. This report was electronically signed by ALISSON FOSTER on 10/06/2018 10:48 AM . Narrative 10/06/2018 10:48 AM CDT EXAMINATION: XR ABDOMEN KUB PORTABLE HISTORY: Enteric tube placement COMPARISON: No prior study is available for comparison. Procedure Note Alisson FosterDO - 08/12/2020 EXAMINATION: XR ABDOMEN KUB PORTABLE HISTORY: Enteric tube placement COMPARISON: No prior study is available for comparison. IMPRESSION: A gastric tube superimposes the stomach. Report dictated by Keith Blanton MD (vice president of human resources). Dr. ALISSON Dorado have personally reviewed and [...] ALISSON FOSTER on 10/06/2018 10:10 AM . Narrative 10/06/2018 10:10 AM CDT EXAMINATION: XR CHEST 1VW HISTORY: thick secretions, hypoxia COMPARISON: None. FINDINGS: No focal consolidation, pleural effusion, or pneumothorax is seen. The cardiomediastinal silhouette is normal. No acute fractures are seen. Procedure Note Alisson Foster DO Suzan - 10/06/2018 EXAMINATION: XR CHEST 1VW HISTORY: [...] 70 - 115 mg/dL 10/05/2018 6:22 AM [facility] Specimen Type Arterial/C apillary 10/05/2018 6:22 AM T [facility] Blood BLOOD SPECIMEN / Unknown 10/05/2018 6:15 AM CDT 10/05/2018 6:22 AM CDT Narrative [facility] - 10/05/2018 6:22 AM CDT OFFSET PRESS OPERATOR APPRENTICE: KATHY FONSECA Janes Hernandez DO LAB - POINT OF CARE ORDERABLES [address] [phone] * (ABNORMAL) URINALYSIS REFLEX TO MICROSCOPIC NO CULTURE (10/03/2018 10:14 PM CDT) Color UA Yellow Straw, Yellow, Colorless 10/03/2018 10:37 PM [facility] Clarity UA Clear Clear, Slt Cloudy 10/03/2018 10:37 PM [facility] Specific [place] UA 1.017 1.005 - 1.030 10/03/2018 10:37 PM [facility] pH UA 5.0 5.0 - 8.0 pH 10/03/2018 10:37 PM [facility] Protein UA Negative Negative mg/dL 10/03/2018 10:37 PM [facility] Glucose UA Negative Negative mg/dL 10/03/2018 10:37 PM [facility] Ketone UA 1+(A) Negative mg/dL 10/03/2018 10:37 PM [facility] Bilirubin UA Negative Negative mg/dL 10/03/2018 10:37 PM [facility] Blood UA 1+(A) Negative 10/03/2018 10:37 PM [facility] Nitrite UA Negative Negative 10/03/2018 10:37 PM [facility] Leukocyte Esterase Negative Negative 10/03/2018 10:37 PM CDT [facility] Urobilinogen UA Negative Negative mg/dL 10/03/2018 10:37 PM CDT [facility] RBC UA 0-2 None Seen, 0-2, 3-5 /HPF 10/03/2018 10:37 PM CDT [facility] WBC UA 0-5 None Seen, 0-5 /HPF 10/03/2018 10:37 PM CDT [facility] Squamous Epithelial Cells UA None Seen None Seen, 0-2 /HPF 10/03/2018 10:37 PM CDT [facility] Urine URINE SPECIMEN OBTAINED BY SINGLE CATHETERIZATION OF URINARY BLADDER / Unknown Collection / Unknown 10/03/2018 10:14 PM CDT 10/03/2018 10:22 PM CDT Janes Hernandez DO LAB - URINALYSIS OR DERABLES Performing Organization Address City/State/[facility] Co de Phone Number [facility] [address] [place] [address] * MRI CERVICAL SPINE WO CONTRAST (10/03/2018 [...] KAR MAIN on 10/03/2018 10:53 AM . Narrative 10/03/2018 10:53 [...] lumbar spine. Dictated by Gloria Baron M.D. (vice president of human resources). This report was approved by Gloria Baron on 10/03/2018 8:08 AM . I, Dr. ENRIQUE YOUNG have personally reviewed and interpreted this examination/study. This report was electronically signed by ENRIQUE YOUNG on 10/03/2018 8:08 AM . Narrative 10/03/2018 8:08 [...] lumbar spine. Dictated by Gloria Baron M.D. (vice president of human resources). This report was approved by Gloria Baron on 10/03/2018 8:08 AM . I, Dr. [...] lumbar spine. Dictated by Gloria Baron M.D. (vice president of human resources). This report was approved by Gloria Baron on 10/03/2018 8:08 AM . I, Dr. ENRIQUE YOUNG have personally reviewed and interpreted this examination/study. This report was electronically signed by ENRIQUE YOUNG on 10/03/2018 8:08 AM . Narrative 10/03/2018 8:08 [...] lumbar spine. Dictated by Gloria Baron M.D. (vice president of human resources). This report was approved by Gloria Baron on 10/03/2018 8:08 AM . I, Dr. [...] lumbar spine. Dictated by Gloria Baron M.D. (vice president of human resources). This report was approved by Gloria Baron on 10/03/2018 8:08 AM . I, Dr. ENRIQUE YOUNG have personally reviewed and interpreted this examination/study. This report was electronically signed by ENRIQUE YOUNG on 10/03/2018 8:08 AM . Narrative 10/03/2018 8:08 [...] lumbar spine. Dictated by Gloria Baron M.D. (vice president of human resources). This report was approved by Gloria Baron on 10/03/2018 8:08 AM . I, Dr. ENRIQUE YOUNG have personally reviewed and interpreted this examination/study. This report was electronically signed by ENRIQUE YOUNG on10/03/2018 8:08 AM . Daryl Vicente Jr., MD CT ORDERABLES * HCG URINE QUALITATIVE - POINT OF CARE (10/02/2018 7:59 PM CDT) HCG Qual Urine Negative Negative [facility] P OCT TESTING QC Verified Yes Yes [facility] PO[facility] Urine URINE / Unknown 10/02/2018 7 :59 PM CDT Terrence Ervin MD LAB - POINT OF CAR E ORDERABLES Performing Organization Address City/[facility] Co de Phone Number [facility] [address] [phone] * PTT [facility] (10/02/2018 2:25 PM CDT) APTT 25.3 23.0 - 38.4 Seconds 10/02/2018 2:39 PM CDT [facility] Comment: * Please Note: New therapeutic range for heparin therapy. * Suggested therapeutic range for full dose I.V. heparin therapy for venous thromboembolism is 65 to 103 seconds. Blood BLOOD SPECIMEN / Unknown Venipuncture / Unknown 10/02/2018 2:25 PM CDT 10/02/2018 2:27 PM CDT Terrence Ervin MD LAB - COAGULATION ORDERABLES [facility] [address] [place] [address], [facility] [phone] * PT-INR [facility] (10/02/2018 2:25 PM CDT) PT 13.5 12.1 - 14.8 Seconds 10/02/2018 2:38 PM CDT [facility] INR 1.1 See Comment 10/02/2018 2:38 PM CDT [facility] Comment: The suggested therapeutic range for standard coumadin (warfarin) therapy is an INR of 2.0-3.0. For high-risk patients (Mechanical Mitral Valve Prosthesis, etc.), the suggested prophylactic therapeutic range is an INR of 2.5-3.5. Blood BLOOD SPECIMEN / Unknown Venipuncture / Unknown 10/02/2018 2:25 PM CDT 10/02/2018 2:27 PM CDT Terrence Ervin MD LAB - COAGULATION ORDERABLES [facility] [address] [place] [address] Care Teams Student Affairs Vice President Relationship Specialty Start Date End Date Pedro David MD [address] [place] [address] [id number] PCP - General 11/19/18
== END 2024-05-15 12:30 | disposition home or self-care (01) ==
LOC: ANHOBOP 11:11 → ANHOBPP 11:15
PROVIDERS: PCP Physician Assistant Medical; Visit Provider Advanced Practice Midwife
DX: O42.90 Premature rupture of membranes, unspecified as to length of time between rupture and onset of labor, unspecified weeks of gestation (principal); Z3A.00 Weeks of gestation of pregnancy not specified
CPT/HCPCS: 59025; 81003; 84112; 99199

== ENCOUNTER 2024-06-01 17:50 | Observation (INO) | payer BC, MEDICAID, SELFPAY ==
[2024-06-01] VITALS (8 sets, daily range): BP systolic 102–107; BP diastolic 63–76; PULSE 92–102; BMI 26.6
--- OUTSIDE RECORDS SUMMARY | 2024-06-01 17:55 | XMS_ITS | Data Portability ---
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 Present Fetus Movement Comments Flowsheet Date 05/27/2024 Schultz Score Blood Edema Fundus Height Fundus Units Glucose Ketones Leukocytes Nitrite Labor Signs Protein Cervic Dilation Cervic Effacement Cervic Station Type Weight in lbs Pre/Post Dialysis Refused 143.073022373301 BP Diastolic BP Location Tested BP Systolic BP Type 79 L arm 114 sitting Fetus Heart Rate Present A 145 Fetus Movement A Yes Comments no complaints, no problems, routine care, no contractions, no vaginal bleeding, no loss of fluid, no cramping Menstrual History Last Menstrual Date Menses Monthly On Bcp Conception Prior Menses Frequency Hcg Plus Date Menarche Onset Age false Genetic Screening And Infection History Question Response Note Mental Retardation/Autism false Patient's Age Will Be 35 Years Or Older At Estim ated Date of Delivery false Thalassemia (Burundian, Faroese, Mediterranean, Or Background): MCV < 80 false Neural Tube Defect (Meningomyelocele, Spina Bifi da, Or Anencephaly) false Congenital Heart Defect false Down Syndrome false Destin-Sachs (eg, Spiritism, Cajun, Norwegian-Georgian) f alse Rob Disease false Sickle Cell Disease Or Trait () false Hemophilia Or Other Blood Disorders false Muscular Dystrophy false Cystic Fibrosis false Houston's Chorea false Intellectual Disability/Autism false If Yes, [...]
--- OUTSIDE RECORDS SUMMARY | 2024-06-01 17:55 | XMS_ITS | Clinical Summary ---
Author Organization [facility] Address [address] [place] [address] Care Team Providers Care Manager Six Sigma Name Role Phone Pedro David MD Primary Care Provider [phone] Source Comments [facility],non-owned Affiliates and Associated Physician Practices is amultiple site organization consisting of ambulatory clinics and hospital sitesin [place], [place], [place] and [place]. This disclosure is being madepursuant to the Care Everywhere program and may not contain all information available regarding this patient. Last updated 17.[facility] Allergies Active Allergy Reactions Criticality Noted Date [...] Comments Blood Pressure 101/64 03/15/2023 10:04 PM REGIONAL AIRLINE PILOT Pulse 69 03/15/2023 10:04 PM [facility]AL [facility]LINE PILOT Temperature 36.3 C (97.3 F) 03/15/2023 10:04 PM [facility] PILOT Respiratory Rate 18 03/15/2023 10:04 PM [facility]IONAL [facility]LINE PILOT Oxygen Saturation 99% 03/15/2023 10:04 PM [facility] PILOT Inhaled Oxygen Concentration 21% 10/08/2018 9 :05 AM CDT Weight 52.2 kg (115 lb) 03/15/2023 7:11 PM [facility] P[facility]OT Height 160 cm (5' 3 ) 03/15/2023 7:11 PM REGIONAL AIRLINE PILOT Body Mass Index 20.37 03/15/2023 7:11 PM REGIONAL [facility]LINE PILOT Plan of Treatment Health Maintenance Due Date [...] ve Non-react shu 10/13/2018 4:15 PM CDT [facility] Comment: Neither HIV-1 p24 Antigen nor HIV-1/HIV-2 Antibodies are detected. Blood BLOOD SPECIMEN / Unknown Lab Venipuncture / Unknown 10/13/2018 3:15 PM CDT 10/13/2018 3:26 PM CDT Promise Arceo MD LAB - HEMATOLOGY ORD ERABLES [facility] [address] [phone] from Last 3 Months or Most Recently [...] attending physician. Comfort Measures: yes Care Teams Manager Six Sigma Relationship Specialty Start Date End Date Pedro David MD [address] [place] [id number] PCP - General 11/19/18
--- OUTSIDE RECORDS SUMMARY | 2024-06-01 17:56 | XMS_ITS | Clinical Summary ---
Author Organization [facility] Address [address] [place] [address] Care Team Providers Care Easement Man Name Role Phone Unavailable Primary Care Provider [...]
--- OUTSIDE RECORDS SUMMARY | 2024-06-01 17:56 | XMS_ITS | Clinical Summary ---
Author Organization [facility] Address [address] [place] [address] Care Team Providers Care Architectural Designer Name Role Phone An Weller PA-C Primary Care Provider [phone] Allergies Active Allergy Reactions Criticality Noted Date [...] mg total) by mouth nightly. Active Acetylcysteine (U-YTBEBX-X-CYS TEINE) 600 MG CapIndications: for cravings Take [...] series) 2016 COVID-19 Vaccine ( season) 2023 Cervical Cancer Screening Pap Smear (Age [...] patient's age to complete this topic Insurance Care Teams Architectural Designer Relationship Specialty Start Date End Date An Weller PA-C [address] [place] [address] [address] [place] [address] PCP - General PHYSICIAN DIRECTOR OF OFFICIATING 03/06/23
--- OUTSIDE RECORDS SUMMARY | 2024-06-01 17:56 | XMS_ITS | Clinical Summary ---
Author Organization [facility] Address [address] [place] [address] Phone Care Team Providers Care Manager Environmental Health And Safety Name Role Phone Provider, None Primary Care [...] on file Insurance [place]ICAID [place] Care Teams Manager Environmental Health And Safety Relationship Specialty Start Date End Date Provider, None [place] PCP - General 01/02/17
[2024-06-01 18:37] LABS: Add Urine Microscopic? NO; Appearance Urine Clear (Clear); Bilirubin Urine Negative (Negative); Blood Urine Negative (Negative); Color Urine Yellow (Yellow); Glucose Urine UA Negative (Negative); Ketones Urine Negative (Negative); Leukocyte Esterase Ur Negative LEU/UL (Negative); Nitrate Urine Negative (Negative); Protein Urine Negative (Negative); Urobilinogen Urine 0.2 mg/dL (<2.0)
--- NOTE | 2024-06-01 20:07 | OBADM ---
This patient, Mirtha Woo, admitted to the OB room OB Post 116 for observation. Patient/family oriented to hospital policies and general routines including ID bracelet, bed and alarms, visiting hours, pain management, procedures, bathroom and other care routines, personal items, smoking policy, room service/diet, and visiting hours. Patient/Family are encouraged to report perceived risks to care and to ask questions if they do not understand what they are told or what they should do.
--- OUTSIDE RECORDS SUMMARY | 2024-06-03 11:27 | XMS_ITS | Clinical Summary ---
Author Organization [facility] Address [address] [place] [address] Care Team Providers Care Surgery Attendant Name Role Phone Pedro David MD Primary Care Provider [phone] Source Comments [facility],non-owned Affiliates and Associated Physician Practices is amultiple site organization consisting of ambulatory clinics and hospital sitesin [place], [place], [place] and [place]. This disclosure is being madepursuant to the Care Everywhere program and may not contain all information available regarding this patient. Last updated 17.[facility] Allergies Active Allergy Reactions Criticality Noted Date [...] Comments Blood Pressure 101/64 03/15/2023 10:04 PM TRUST CLERK Pulse 69 03/15/2023 10:04 PM TRUST CLERK Temperature 36.3 C (97.3 F) 03/15/2023 10:04 PM TRUST CLERK Respiratory Rate 18 03/15/2023 10:04 PM TRUST CLERK Oxygen Saturation 99% 03/15/2023 10:04 PM TRUST CLERK Inhaled Oxygen Concentration 21% 10/08/2018 9 :05 AM CDT Weight 52.2 kg (115 lb) 03/15/2023 7:11 PM TRUST CLERK Height 160 cm (5' 3 ) 03/15/2023 7:11 PM TRUST CLERK Body Mass Index 20.37 03/15/2023 7:11 PM TRUST CLERK Plan of Treatment Health Maintenance Due Date [...] ve Non-react shu 10/13/2018 4:15 PM CDT [facility] Comment: Neither HIV-1 p24 Antigen nor HIV-1/HIV-2 Antibodies are detected. Blood BLOOD SPECIMEN / Unknown Lab Venipuncture / Unknown 10/13/2018 3:15 PM CDT 10/13/2018 3:26 PM CDT Promise Arceo MD LAB - HEMATOLOGY ORD ERABLES [facility] [address] [phone] from Last 3 Months or Most Recently [...] attending physician. Comfort Measures: yes Care Teams Surgery Attendant Relationship Specialty Start Date End Date Pedro David MD [address] [place] [id number] PCP - General 11/19/18
--- OUTSIDE RECORDS SUMMARY | 2024-06-03 11:27 | XMS_ITS | Clinical Summary ---
Author Organization [facility] Address [address] [place] [address] Care Team Providers Care Tray Setter Name Role Phone An Weller PA-C Primary Care Provider [phone] Allergies Active Allergy Reactions Criticality Noted Date [...] mg total) by mouth nightly. Active Acetylcysteine (H-PQVLAJ-S-CYS TEINE) 600 MG CapIndications: for cravings Take [...] to complete this topic Insurance Care Teams Tray Setter Relationship Specialty Start Date End Date An Weller PA-C [address] [place] [address] [address] [place] [address] PCP - General PHYSICIAN TAX ATTORNEY 03/06/23
--- OUTSIDE RECORDS SUMMARY | 2024-06-03 11:27 | XMS_ITS | Clinical Summary ---
Author Organization [facility] Address [address] [place] [address] Care Team Providers Care President Ceo & Founder Name Role Phone Unavailable Primary Care Provider [...]
--- OUTSIDE RECORDS SUMMARY | 2024-06-03 11:27 | XMS_ITS | Clinical Summary ---
Author Organization [facility] Address [address] [place] [address] Phone Care Team Providers Care Cement Finisher Helper Name Role Phone Provider, None Primary Care [...] on file Insurance [place]ICAID [place] Care Teams Cement Finisher Helper Relationship Specialty Start Date End Date Provider, None [place] PCP - General 01/02/17
--- NOTE | 2024-06-28 21:42 | P.PNOB_ITS ---
OB - Triage/Final Diagnosis Visit Information Comments/Additional reasons for admission: I have assessed the risk for this patient, Mirtha Woo, and determined that she would benefit from observation care. Evaluation Laboratory results: Laboratory Tests 06/01/24 18:32 Urine Color Yellow Urine Appearance Clear Urine pH 7.0 Ur Specific [place] 1.010 Urine Protein Negative Urine Glucose (UA) Negative Urine Ketones Negative Ur Blood (Man) Negative Urine Nitrate Negative Urine Bilirubin Negative Urine Urobilinogen 0.2 Leukocyte Esterase Rfl Negative Final Diagnosis (1) Abdominal pain affecting : Code(s): O26.899 - Other specified related conditions, unspecified trimester; R10.9 - Unspecified abdominal pain Status: Acute
== END 2024-06-01 20:15 | disposition home or self-care (01) ==
PROVIDERS: Admitting Provider Obstetrics & Gynecology; PCP Physician Assistant Medical; Visit Provider Obstetrics & Gynecology
DX: O26.893 Other specified pregnancy related conditions, third trimester (principal); R10.9 Unspecified abdominal pain; Z3A.35 35 weeks gestation of pregnancy
CPT/HCPCS: 81003; G0378; G0379

== ENCOUNTER 2024-06-26 15:04 | Outpatient (CLI) | payer MEDICAID, SELFPAY ==
[2024-06-26 16:07] VITALS: BP 113/73; PULSE 98
[2024-06-26 16:19] LABS: OBXCEM ROM Plus Negative (Negative)
--- OUTSIDE RECORDS SUMMARY | 2024-06-26 17:10 | XMS_ITS | Data Portability ---
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 BP Location Tested BP Systolic [...] Weight in lbs Pre/Post Dialysis Refused Weight 138.013759827419 BP Diastolic BP Location Tested BP Systolic [...] Type Weight in lbs Pre/Post Dialysis Refused 143.121830571498 BP Diastolic BP Location Tested BP Systolic BP Type 79 L arm 114 sitting Fetus Heart Rate Present A 145 Fetus Movement A Yes Comments no complaints, no problems, routine care, no contractions, no vaginal bleeding, no loss of fluid, no cramping Flowsheet Date 06/10/2024 Schultz Score Blood Edema Fundus Height Fundus Units Glucose Ketones Leukocytes Nitrite Labor Signs Protein Cervic Dilation Cervic Effacement Cervic Station 0cm 20% -3 Type Weight in lbs Pre/Post Dialysis Refused Weight 148.018088029309 BP Diastolic BP Location Tested BP Systolic BP Type 72 L arm 109 sitting Fetus Heart Rate Present A 142 Present Fetus Movement A Yes Comments no complaints, no problems, routine care, no contractions, no vaginal bleeding, no loss of fluid, no cramping. Recently in labor and delivery pressure, cervix is closed today. Flowsheet Date 06/18/2024 Schultz Score Blood Edema Fundus Height Fundus Units Glucose Ketones Leukocytes Nitrite Labor Signs Protein Cervic Dilation Cervic Effacement Cervic Station 35 cm Type Weight in lbs Pre/Post Dialysis Refused Weight 151.089243170359 BP Diastolic BP Location Tested BP Systolic BP Type 82 L arm 119 sitting Fetus Heart Rate Present A 138 Present Fetus Movement A Yes Comments no complaints, no problems, routine care, no contractions, no vaginal bleeding, no loss of fluid, no cramping, persistent size date discrepancy Flowsheet Date 06/18/2024 Schultz Score Blood Edema Fundus Height Fundus Units Glucose Ketones Leukocytes Nitrite Labor Signs Protein Cervic Dilation Cervic Effacement Cervic Station Type Weight in lbs Pre/Post Dialysis Refused BP Diastolic BP Location Tested BP Systolic BP Type Fetus Heart Rate Present Fetus Movement Comments Flowsheet Date 06/24/2024 Schultz Score Blood Edema Fundus Height Fundus Units Glucose Ketones Leukocytes Nitrite Labor Signs Protein Cervic Dilation Cervic Effacement Cervic Station neg none 2cm 70% Type Weight in lbs Pre/Post Dialysis Refused Weight 152.890550333497 BP Diastolic BP Location Tested BP Systolic BP Type 70 109 Fetus Heart Rate Present Fetus Movement A Yes Comments Patient is having some press ure, discharge and nausea. +FM, doing well, education and precautions, unsure if wants IOL, no need for medical ok to decide at any time, reviewed FM f/u one week Menstrual History Last Menstrual Date Menses Monthly On Bcp Conception Prior Menses Frequency Hcg Plus Date Menarche Onset Age false Genetic Screening And Infection History Question Response Note Mental Retardation/Autism false Patient's Age Will Be 35 Years Or Older At Estim ated Date of Delivery false Thalassemia (Haitian, Faroese, Mediterranean, Or Background): MCV < 80 false Neural Tube Defect (Meningomyelocele, Spina Bifi da, Or Anencephaly) false Congenital Heart Defect false Down Syndrome false Destin-Sachs (eg, Pentecostalism, Cajun, Amharic-Brookings) f alse Rob Disease false Sickle Cell Disease Or Trait () false Hemophilia Or Other Blood Disorders false Muscular Dystrophy false Cystic Fibrosis false Powell's Chorea false Intellectual Disability/Autism false If Yes, [...]
--- OUTSIDE RECORDS SUMMARY | 2024-06-26 17:10 | XMS_ITS | Clinical Summary ---
Author Organization [facility] Address [address] [place] [address] Care Team Providers Care Corn Crop Supervisor Name Role Phone An Weller PA-C Primary Care Provider [phone] Allergies Active Allergy Reactions Criticality Noted Date [...] mg total) by mouth nightly. Active Acetylcysteine (K-SGAXDN-Y-CYS TEINE) 600 MG CapIndications: for cravings Take [...] Date Last Done Comments Annual Physical 2000 DTaP, Tdap and Td Vaccines (5 - Tdap) 2008 05/02/1999, 07/13/1998, 05/13/1998, Additional history exists HPV Vaccines (1 - 3-dose series) 2012 Hepatitis B Vaccines (1 of 3 - 19+ 3-dose series) 2016 Pneumococcal Vaccine: Pediatrics (0 to 5 Years) and At-Risk Patients (6 to 49 Years) (1 of 2 - PCV) 2016 COVID-19 Vaccine ( - season) 2023 Cervical Cancer Screening Pap Smear [...] to complete this topic Insurance Care Teams Corn Crop Supervisor Relationship Specialty Start Date End Date An Weller PA-C [address] [place] [address] [address] [place] [address] PCP - General PHYSICIAN COMPENSATION AND BENEFITS MANAGER 03/06/23
--- OUTSIDE RECORDS SUMMARY | 2024-06-26 17:10 | XMS_ITS | Clinical Summary ---
Author Organization [facility] Address [address] [place] [address] Care Team Providers Care Bankruptcy Assistant Name Role Phone Pedro David MD Primary Care Provider [phone] Source Comments [facility],non-owned Affiliates and Associated Physician Practices is amultiple site organization consisting of ambulatory clinics and hospital sitesin [place], [place], [place]. This disclosure is being madepursuant to the Care Everywhere program and may not contain all information available regarding this patient. Last updated 17.[facility] Allergies Active Allergy Reactions Criticality Noted Date Comments Blueberry Flavor GI Discomfort Low 12/29/2017 Sparks GI Discomfort 12/29/2017 Medications * Be aware that medications may not be up to date on this document. Alwaysverify current medications with the patient. acetaminophen (TYLENOL) 325 MG tablet Take 2 tablets by mouth every 4 hours Maximum allowable Acetaminophen amount = 4 Grams (4000 mg) / 24 hours. 9 Active Additional Information Patient not taking.Reported on 10/05/2020 polyethylene glycol 3350 (MIRALAX) packet Take 17 g by mouth once daily 9 Active Additional Information Patient not taking.Reported on 10/05/2020 senna (SENOKOT) 8.6 MG tablet Take 1 tablet by mouth once daily 9 Active Additional Information Patient not taking.Reported on 10/05/2020 ondansetron, disintegrating , (ZOFRAN ODT) 4 MG tablet Take 1 tablet by mouth every 6 hours as needed for Nausea/Vomiting Allow tablet to dissolve on the tongue 14 tablet 9 Active Additional Information Patient not taking.Reported on 10/05/2020 sertraline (ZOLOFT) 50 MG tablet Take 1 tablet by mouth once daily 30 tablet 1 9 Active Additional Information Patient not taking.Reported on 10/05/2020 ALPRAZolam (XANAX) 0.25 MG tablet Take 0.25 mg by mouth 9 Active amphetamine-de xtroamphetamin e XR 24hr (ADDERALL XR) 20 MG capsule TK ONE C PO QD 0 9 Active docusate sodium (COLACE) 100 MG capsule Take 100 mg by mouth Active metaxalone (SKELAXIN) 800 MG tablet Take 800 mg by mouth 9 Active ondansetron (ZOFRAN) 4 MG tablet Take 4 mg by mouth 9 Active phenol (CHLORASEPTIC) 1.4 % liquid 1 spray by Mouth/Throat route Active valACYclovir (VALTREX) 1 GM tablet TAKE 1 TABLET BY MOUTH TWICE A DAY FOR 7 DAYS 0 9 Active Active Problems Problem Noted Date Diagnosed [...] of Binge Drinking Not on file 03/05 Comments No Sex and Gender Information Value Date Recorded Sex Assigned at Not on file Legal Sex Female 5:18 PM CDT Gender Identity Not on file Sexual Orientation Not on file Last Filed Vital Signs Vital Sign Reading Time Taken Comments Blood Pressure 101/64 03/15/2023 10:04 PM ELECTRICAL UNIT REBUILDER Pulse 69 03/15/2023 10:04 PM ELECTRICAL UNIT REBUILDER Temperature 36.3 C (97.3 F) 03/15/2023 10:04 PM ELECTRICAL UNIT REBUILDER Respiratory Rate 18 03/15/2023 10:04 PM ELECTRICAL UNIT REBUILDER Oxygen Saturation 99% 03/15/2023 10:04 PM ELECTRICAL UNIT REBUILDER Inhaled Oxygen Concentration 21% 10/08/2018 9 :05 AM CDT Weight 52.2 kg (115 lb) 03/15/2023 7:11 PM ELECTRICAL UNIT REBUILDER Height 160 cm (5' 3 ) 03/15/2023 7:11 PM ELECTRICAL UNIT REBUILDER Body Mass Index 20.37 03/15/2023 7:11 PM ELECTRICAL UNIT REBUILDER Plan of Treatment Health Maintenance Due Date Last Done Comments PAP SMEAR 1997 HPV VACCINE (1 - 3-dose series) 2012 HEPATITIS C SCREENING 12/10/2015 DTAP/TDAP/TD VACCINES (1 - Tdap) 2016 HEPATITIS B VACCINE (1 of 3 - 19+ 3-dose series) 2016 COVID-19 VACCINE (1 - 2023-2 5 season) 2023 DEPRESSION SCREENING 03/05/2024 INFLUENZA VACCINE (Season Ended) 2024 ZOSTER VACCINE (1 of 2) 12/15/2047 HIV [...] ve Non-react shu 10/13/2018 4:15 PM CDT [facility] Comment: Neither HIV-1 p24 Antigen nor HIV-1/HIV-2 Antibodies are detected. Blood BLOOD SPECIMEN / Unknown Lab Venipuncture / Unknown 10/13/2018 3:15 PM CDT 10/13/2018 3:26 PM CDT us Promise Arceo MD LAB - HEMATOLOGY ORDERABLES Cece srivastava Result [facility] [address] [place] [address] from Last 3 Months or Most Recently Relevant to Health Maintenance Insurance [facility] [employer] [place] [place] Advance Directives * Full Code (Latest Code [...] attending physician. Comfort Measures: yes Care Teams Bankruptcy Assistant Relationship Specialty Start Date End Date Pedro David MD [address] [place] [id number] PCP - General 11/19/18
--- OUTSIDE RECORDS SUMMARY | 2024-06-26 17:10 | XMS_ITS | Clinical Summary ---
Author Organization [facility] Address [address] [place] [address] Care Team Providers Care Newspaper Inserter Name Role Phone Unavailable Primary Care Provider [...]
== END 2024-06-26 16:16 | disposition home or self-care (01) ==
LOC: ANHOBOP 15:58 → ANHLDR 15:59
PROVIDERS: PCP Physician Assistant Medical; Referring Provider Advanced Practice Midwife; Visit Provider Obstetrics & Gynecology
DX: O42.90 Premature rupture of membranes, unspecified as to length of time between rupture and onset of labor, unspecified weeks of gestation (principal); Z3A.00 Weeks of gestation of pregnancy not specified
CPT/HCPCS: 59025; 84112; 99199

== ENCOUNTER 2024-06-28 15:00 | Outpatient (CLI) | payer MEDICAID, SELFPAY ==
--- OUTSIDE RECORDS SUMMARY | 2024-06-28 15:42 | XMS_ITS | Data Portability ---
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 Diastolic BP Location Tested BP Systolic [...] Type Weight in lbs Pre/Post Dialysis Refused 143.757544974306 BP Diastolic BP Location Tested BP Systolic [...] Weight in lbs Pre/Post Dialysis Refused Weight 148.664857429444 BP Diastolic BP Location Tested BP Systolic [...] Weight in lbs Pre/Post Dialysis Refused Weight 151.648102474615 BP Diastolic BP Location Tested BP Systolic [...] Weight in lbs Pre/Post Dialysis Refused Weight 152.776137568982 BP Diastolic BP Location Tested BP Systolic [...] Estim ated Date of Delivery false Thalassemia (Beninese, American, Mediterranean, Or Background): MCV < 80 false Neural Tube Defect (Meningomyelocele, Spina Bifi da, Or Anencephaly) false Congenital Heart Defect false Down Syndrome false Destin-Sachs (eg, Episcopalian, Cajun, Bahraini-Powell) f alse Rob Disease false Sickle Cell Disease Or Trait () false Hemophilia Or Other Blood Disorders false Muscular Dystrophy false Cystic Fibrosis false Gonzales's Chorea false Intellectual Disability/Autism false If Yes, [...]
--- OUTSIDE RECORDS SUMMARY | 2024-06-28 15:42 | XMS_ITS | Clinical Summary ---
Author Organization [facility] Address [address] [place] [address] Care Team Providers Care Bicycle Repairman Name Role Phone Unavailable Primary Care Provider [...]
--- OUTSIDE RECORDS SUMMARY | 2024-06-28 15:42 | XMS_ITS | Clinical Summary ---
Author Organization [facility] Address [address] [place] [address] Phone Care Team Providers Care Baster Hand Name Role Phone Provider, None Primary Care [...] on file Insurance [place]ID [place] Care Teams Baster Hand Relationship Specialty Start Date End Date Provider, None [place] PCP - General 01/02/17
--- OUTSIDE RECORDS SUMMARY | 2024-06-28 15:42 | XMS_ITS | Clinical Summary ---
Author Organization [facility] Address [address] [place] [address] Care Team Providers Care Mixer And Blender Name Role Phone An Weller PA-C Primary Care Provider [phone] Allergies Active Allergy Reactions Criticality Noted Date [...] mg total) by mouth nightly. Active Acetylcysteine (E-MYFGMY-B-CYS TEINE) 600 MG CapIndications: for cravings Take [...] patient's age to complete this topic Insurance [address] [id number] [facility] Care Teams Mixer And Blender Relationship Specialty Start Date End Date An Weller PA-C [address] [place] [address] [address] [place] [address] PCP - General PHYSICIAN GARNISHMENT SPECIALIST 03/06/23
--- OUTSIDE RECORDS SUMMARY | 2024-06-28 15:42 | XMS_ITS | Clinical Summary ---
Author Organization [facility] Address [address] [place] [address] Care Team Providers Care Stripe Matcher Name Role Phone Pedro David MD Primary Care Provider Source Comments [facility],non-owned Affiliates and Associated Physician Practices is amultiple site organization consisting of ambulatory clinics and hospital sitesin [place], [place], [place] and [place]. This disclosure is being madepursuant to the Care Everywhere program and may not contain all information available regarding this patient. Last updated 17.[facility] Allergies Active Allergy Reactions Criticality Noted Date [...] Comments Blood Pressure 101/64 03/15/2023 10:04 PM WEIGHER ALLOY Pulse 69 03/15/2023 10:04 PM WEIGHER ALLOY Temperature 36.3 C (97.3 F) 03/15/2023 10:04 PM WEIGHER ALLOY Respiratory Rate 18 03/15/2023 10:04 PM WEIGHER ALLOY Oxygen Saturation 99% 03/15/2023 10:04 PM WEIGHER ALLOY Inhaled Oxygen Concentration 21% 10/08/2018 9 :05 AM CDT Weight 52.2 kg (115 lb) 03/15/2023 7:11 PM WEIGHER ALLOY Height 160 cm (5' 3 ) 03/15/2023 7:11 PM WEIGHER ALLOY Body Mass Index 20.37 03/15/2023 7:11 PM WEIGHER ALLOY Plan of Treatment Health Maintenance Due Date [...] ve Non-react shu 10/13/2018 4:15 PM CDT [facility] Comment: Neither HIV-1 p24 Antigen nor HIV-1/HIV-2 Antibodies are detected. Blood BLOOD SPECIMEN / Unknown Lab Venipuncture / Unknown 10/13/2018 3:15 PM CDT 10/13/2018 3:26 PM CDT us Promise Arceo MD LAB - HEMATOLOGY ORDERABLES Cece srivastava Result [facility] [address] [place] [address] from Last 3 Months or Most Recently Relevant to Health Maintenance Insurance [facility] [employer] ANTH MED[place]ID [place] Advance Directives * [...] attending physician. Comfort Measures: yes Care Teams Stripe Matcher Relationship Specialty Start Date End Date Pedro David MD [address] [place] [id number] PCP - General 11/19/18
[2024-06-28 15:51] VITALS: BP 114/77; PULSE 100
[2024-06-28 15:58] LABS: OBXCEM ROM Plus Negative (Negative)
== END 2024-06-28 15:01 | disposition home or self-care (01) ==
PROVIDERS: Advanced Practice Midwife; PCP Physician Assistant Medical; Visit Provider Obstetrics & Gynecology
DX: O42.90 Premature rupture of membranes, unspecified as to length of time between rupture and onset of labor, unspecified weeks of gestation (principal); Z3A.00 Weeks of gestation of pregnancy not specified
CPT/HCPCS: 59025; 84112

== ENCOUNTER 2024-07-02 05:13 | Inpatient (IN) | payer MEDICAID, SELFPAY ==
[2024-07-02] VITALS (81 sets, daily range): BP systolic 39–120; BP diastolic 18–81; PULSE 67–143; RESP 16–18; TEMP 36.4–36.9; O2SAT 96–100; BMI 27.8
--- OUTSIDE RECORDS SUMMARY | 2024-07-02 05:18 | XMS_ITS | Clinical Summary ---
Author Organization [facility] Address [address] [place] [address] Care Team Providers Care Reservoir Engineering Consultant Name Role Phone Pedro David MD Primary Care Provider [phone] Source Comments [facility],non-owned Affiliates and Associated Physician Practices is amultiple site organization consisting of ambulatory clinics and hospital sitesin [place], [place], [place] and [place]. This disclosure is being madepursuant to the Care Everywhere program and may not contain all information available regarding this patient. Last updated 17.[facility] Allergies Active Allergy Reactions Criticality Noted Date [...] Comments Blood Pressure 101/64 03/15/2023 10:04 PM RIG BUILDER Pulse 69 03/15/2023 10:04 PM RIG BUILDER Temperature 36.3 C (97.3 F) 03/15/2023 10:04 PM RIG BUILDER Respiratory Rate 18 03/15/2023 10:04 PM RIG BUILDER Oxygen Saturation 99% 03/15/2023 10:04 PM RIG BUILDER Inhaled Oxygen Concentration 21% 10/08/2018 9 :05 AM CDT Weight 52.2 kg (115 lb) 03/15/2023 7:11 PM RIG BUILDER Height 160 cm (5' 3 ) 03/15/2023 7:11 PM RIG BUILDER Body Mass Index 20.37 03/15/2023 7:11 PM RIG BUILDER Plan of Treatment Health Maintenance Due Date [...] ve Non-react shu 10/13/2018 4:15 PM CDT [facility] Comment: Neither HIV-1 p24 Antigen nor HIV-1/HIV-2 Antibodies are detected. Blood BLOOD SPECIMEN / Unknown Lab Venipuncture / Unknown 10/13/2018 3:15 PM CDT 10/13/2018 3:26 PM CDT us Promise Arceo MD LAB - HEMATOLOGY ORDERABLES Cece srivastava Result [facility] [address] [place] [address] from Last 3 Months or Most Recently Relevant to Health Maintenance Insurance [facility] [employer] [place] Advance Directives * [...] attending physician. Comfort Measures: yes Care Teams Reservoir Engineering Consultant Relationship Specialty Start Date End Date Pedro David MD [address] [place] [id number] PCP - General 11/19/18
--- OUTSIDE RECORDS SUMMARY | 2024-07-02 05:18 | XMS_ITS | Clinical Summary ---
Author Organization [facility] Address [address] [place] [address] Care Team Providers Care Mechanic/Welder Name Role Phone Unavailable Primary Care Provider [...]
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
--- OUTSIDE RECORDS SUMMARY | 2024-07-02 05:18 | XMS_ITS | Clinical Summary ---
Author Organization [facility] Address [address] [place] [address] Care Team Providers Care Human Services Case Manager Name Role Phone An Weller PA-C Primary Care Provider [phone] Allergies Active Allergy Reactions Criticality Noted Date [...] mg total) by mouth nightly. Active Acetylcysteine (B-EGNSHD-T-CYS TEINE) 600 MG CapIndications: for cravings Take [...] to complete this topic Insurance Care Teams Human Services Case Manager Relationship Specialty Start Date End Date An Weller PA-C [address] [place] [address] [address] [place] [address] PCP - General PHYSICIAN NETWORK SYSTEMS OPERATOR 03/06/23
--- OUTSIDE RECORDS SUMMARY | 2024-07-02 05:18 | XMS_ITS | Clinical Summary ---
Author Organization [facility] Address [address] [place] [address] Phone Care Team Providers Care Silk Spreader Name Role Phone Provider, None Primary Care [...] on file Insurance MEDICAID [place] Care Teams Silk Spreader Relationship Specialty Start Date End Date Provider, None [place] PCP - General 01/02/17
--- OUTSIDE RECORDS SUMMARY | 2024-07-02 05:18 | XMS_ITS | Data Portability ---
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 (Meningomyelocele, Spina Bifi da, Or Anencephaly) false Congenital Heart Defect false Down Syndrome false Destin-Sachs (eg, Roman Catholic, Cajun, Spanish-Botswanan) f alse Rob Disease false Sickle Cell Disease Or Trait () false Hemophilia Or Other Blood Disorders false Muscular Dystrophy false Cystic Fibrosis false Rowan's Chorea false Intellectual Disability/Autism false If Yes, [...]
[2024-07-02 05:56] LABS: Basophils Percent Auto 0.5 % (0.2-1.2); Eosinophils Absolute Auto 0.1 K/mm3 (0-0.3); Eosinophils Percent Auto 0.9 % (0-4.4); Hematocrit 40.6 % (37.0-47.0); Hemoglobin 13.5 g/dL (12.0-15.0); Immature Granulocyte Absolute 0.04 K/mm3 (0.00-0.031); Immature Granulocyte Percent A 0.5 % (0-0.5); Lymphocytes Absolute Auto 1.37 K/mm3 (0.9-3.2); Lymphocytes Percent Auto 17.9 % (18.3-44.2); Mean Corpuscular HGB Conc 33.3 g/dl (32-36); Mean Corpuscular Hemoglobin 30.8 pg (26-34); Mean Corpuscular Volume 92.5 fl (80-100); Mean Platelet Volume 10.9 fl (7.4-10.4); Monocytes Absolute Auto 0.7 K/mm3 (0.1-0.6); Monocytes Percent Auto 8.7 % (2.6-8.5); Neutrophils Absolute Auto 5.5 K/mm3 (1.3-6.7); Neutrophils Percent Auto 71.5 % (45.5-73.1); Platelet Count Result 167 k/mm3 (150-375); Red Blood Count 4.39 M/mm3 (4.2-5.4); Red Cell Distribution Width 12.4 % (11.5-14.5); White Blood Count 7.7 K/mm3 (4.5-10.0)
--- NOTE | 2024-07-02 06:29 | WPDANESEPP ---
Anes - Eval Pre Procedure Procedure: labor pain managment Date/Time: 07/02/24 06:29 Surgeon: Amrit Preop Diagnosis: pain during labor Pre Op Diagnosis: IOL Patient Data Age: 28 Gender: F Height: 1.57 m Weight: 69.09 kg Last Vital Signs Pulse 98 07/02/24 06:16 BP 117/64 07/02/24 06:16 O2 Del Method Room Air 07/02/24 05:57 Allergies Allergy/AdvReac Type Severity Reaction Status Date / Time cephalexin (From Keflex) AdvReac Mild Unknown Verified 07/02/24 06:11 Home Medications ?Medication ?Instructions ?Recorded ?Confirmed ?Type ferrous sulfate 325 mg (65 mg 325 mg PO DAILY 06/23/22 06/27/24 History iron) tablet (Iron (ferrous sulfate)) vit no.95-ferrous 1 tablet PO DAILY 03/22/24 06/27/24 History fumarate 28 mg-folic acid 800 mcg tablet () valacyclovir 500 mg tablet 500 mg PO DAILY #90 tabs 03/31/24 06/27/24 Rx Laboratory Tests 07/02/24 05:45 WBC 7.7 K/mm3 (4.5-10.0) RBC 4.39 M/mm3 (4.2-5.4) Hgb 13.5 g/dL (12.0-15.0) Hct 40.6 % (37.0-47.0) MCV 92.5 fl (80-100) MCH 30.8 pg (26-34) MCHC 33.3 g/dl (32-36) RDW 12.4 % (11.5-14.5) Plt Count 167 k/mm3 (150-375) MPV 10.9 H fl (7.4-10.4) Immature Gran % (Auto) 0.5 % (0-0.5) Neut % (Auto) 71.5 % (45.5-73.1) Lymph % (Auto) 17.9 L % (18.3-44.2) [place] % (Auto) 8.7 H % (2.6-8.5) Eos % (Auto) 0.9 % (0-4.4) Baso % (Auto) 0.5 % (0.2-1.2) Lymph # (Auto) 1.37 K/mm3 (0.9-3.2) [place] # (Auto) 0.7 H K/mm3 (0.1-0.6) Eos # (Auto) 0.1 K/mm3 (0-0.3) Baso # (Auto) 0.0 K/mm3 (0.0-0.1) Abs Immat Gran (auto) 0.04 H K/mm3 (0.00-0.031) Absolute Neuts (auto) 5.5 K/mm3 (1.3-6.7) Absolute Nucleated RBC 0.000 K/mm3 (0.0-0.012) Nucleated RBC % 0.0 % (0.0-0.2) HIV 1&2 Ab/P24 Ag 4thGn Pending Blood Type Pending Antibody Screen Pending HCG: positive (edc 07/07/23) Patient hx anesthesia problems: none Family hx anesthesia problems: none Results Review: All pre-operative results and documents have been reviewed as part of the pre-operative evaluation. [facility] Past Medical History Medical History Encephalomalacia Herpes simplex Bipolar 1 disorder ADD (attention deficit disorder) Term delivered Intrauterine Vaginal discharge during in third trimester Surgical History Surgical History No pertinent past surgical history Family History Family History Father Diabetes mellitus Social History Social History Years smoked: 1 Smoking status: Former smoker Tobacco type: cigarettes Smoking end date: 09/03/23 Alcohol intake: current Alcohol use details: occasional Substance use: former Substance use type: does not use Do You Feel Safe in your Home?: Yes Lack of Transportation: No Lack of Food: Never True Current Housing: I Have Housing Concerned About Future Housing: No Difficulty Paying Gas/Electric Bills: No Difficulty Paying for Meds: No Currently Unemployed: No Education: High School Diploma/GED Difficulty w/ Childcare or Family Care: No Living arrangements: with family Occupation/Education: occupation 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
[2024-07-02 06:33] LABS: Syphilis IgG/IgM Antibody Negative (Negative)
[2024-07-02] MEDS: LACTATED RINGERS 1,000 ML 125 ML IV CONT ×3 (06:34→11:19)
[2024-07-02] MEDS: OXYTOCIN 30 UNITS/NS 500 ML 30 UNITS/500 ML BAG IV CONT (06:45)
[2024-07-02 06:46] LABS: HIV 1/2 Ab P24 Ag Result Negative (Negative)
--- NOTE | 2024-07-02 07:27 | WPDOBADMIT ---
Obstetrics - Admit Note Admission Note: record reviewed. No pertinent additions to the history and/or any subsequent changes in the physical findings that are not consistent with the expected course of the were found. Additions to the history and/or subsequent changes in the physical findings follow. IOL, SVE 2/60/-2 AROM moderate amount of clear, odorless fluid, anticipate vaginal delivery
[2024-07-02] MEDS: fentaNYL CITRATE INJ (*CRX) 100 MCG/2 ML VIAL 50 MCG IV PUSH (08:36)
[2024-07-02] MEDS: fentaNYL CITRATE INJ (*CRX) 100 MCG/2 ML VIAL IV PUSH (09:54)
[2024-07-02] MEDS: ONDANSETRON INJ 4 MG/2 ML VIAL IV PUSH (09:58)
--- NOTE | 2024-07-02 13:42 | PM.OBPRVD ---
OB - Vaginal Delivery Note Procedure Delivery date: 07/02/24 Induction method: AROM and Per Pitocin Protocol Delivery monitor: External FHT and External Uterine Route of delivery: Episiotomy description: None Laceration Description: Perineal - 1st Degree Specimen: No Quantitative Blood Loss (ml): 100 Anesthesia type: Epidural Disposition: Floor Complications: No immediate complications Baby Date of : 07/02/24 Time of : 13:27 Gestational Age by Date: 39 gender: Female presentation: vertex position: Left Occiput Anterior Placenta delivery description: Spontaneous Cord Vessel Description: 3 Vessels score one minute: 8 score five minutes: 9
[2024-07-02] MEDS: OXYTOCIN 30 UNITS/NS 500 ML 30 UNITS/500 ML BAG 125 UNITS IV CONT (14:18)
--- NOTE | 2024-07-02 16:48 | OBPPTRN ---
Patient transferred to post room #287 via wheelchair. Support person present. Oriented to unit, room, information board, rooming in, admission packet and security measures. Patient verbalizes understanding.
[2024-07-02] MEDS: IBUPROFEN 600 MG TABLET PO (17:17)
[2024-07-02] MEDS: DOCUSATE SODIUM 100 MG CAPSULE PO (17:17)
--- NOTE | 2024-07-02 17:30 | PC.NURSE ---
Introductions were made. Assisted mother with latching . is very eager at the breast but mothers attempts resulted in infants latch being shallow. Infant was in the cross cradle position upon entering room. This RN assisted mother to change position to the football hold and was able to get infants latch deeper in this position. Mother states that the latch is painful but she has very sensitive nipples. On observation, mother did have blistering before this feeding began. Mother states that she did use a nipple shield with her previous child, no nipple shield was needed for this feeding.
[2024-07-02] MEDS: ACETAMINOPHEN 325 MG TABLET 650 MG PO (18:47)
[2024-07-03 05:09] LABS: Hemoglobin 12.2 g/dL (12.0-15.0)
--- NOTE | 2024-07-03 07:35 | PC.NURSE ---
Called to patient bedside to assist with latching . Upon entering room, was swaddled and being held by mother. Demonstrated undressing infant and placing tummy to tummy with mother. Infant sleepy at the breast but with little stimulation was able to wake for feeding. latched optimally to the right breast in football position. Minimal help required by this RN. Mother does have pain but it appears to be from shallow latches overnight which resulted in a blister to the right nipple.
[2024-07-03] MEDS: MULTIVIT/MIN/PREN/FOL AC/IRON TABLET 1 TAB PO (08:02)
[2024-07-03] MEDS: IBUPROFEN 600 MG TABLET PO ×2 (08:02→14:22)
[2024-07-03] MEDS: DOCUSATE SODIUM 100 MG CAPSULE PO (08:02)
[2024-07-03] MEDS: ACETAMINOPHEN 325 MG TABLET 650 MG PO ×3 (08:04→21:19)
[2024-07-03 08:35] VITALS: BP 109/79; PULSE 84; RESP 16; O2SAT 96
--- NOTE | 2024-07-03 08:55 | P.PNOB_ITS ---
OB - PN: Subj Subjective Date/time seen: 07/03/24 08:55 Interval history: pp day 1 doing well unsure if wants to go home OB - PN: Obj Data Labs 07/03/24 04:50 Labs: Laboratory Results - last 24 hr 07/03/24 04:50 Hgb 12.2 Hct 38.0 OB - PN A/P Plan day: 1 Plan: routine care Time Spent With Patient Time: Total time spent is greater than 50% in coordination of care (as documented) at patient's floor/unit and/or counseling patient: Review of Systems 2 Review of Systems: All systems reviewed & are unremarkable except as noted in HPI and below Exam 2 Const: General: cooperative, healthy appearing and comfortable Chest: Chest palpation & inspection: normal inspection of the chest Resp: Effort & Inspection: normal respiratory effort Cardio: Rate: regular rate
--- NOTE | 2024-07-03 08:57 | P.DS_ITS ---
DS: Admitting Diagnosis Discharge Date 07/04/24 Admitting Diagnosis IOL OB - DS: Summary OB Procedures : None OB Procedures Intrapartum: Spontaneous Vag Delivery OB Procedures: : None Peripartum Data Laceration Description: Perineal - 1st Degree Episiotomy description: None Time Spent with Patient Time attestation: Total time spent providing and/or coordinating discharge services: DS: Data Data Completed and Pending Labs on day of discharge: Labs from last 24 hours 07/03/24 04:50 Hgb 12.2 Hct 38.0 Discharge Plan Discharge Attending physician on discharge: Yeyo Marcus Consulting providers: Gianna Cavanaugh Discharging Clinician: Gianna Cavanaugh Patient Disposition: Home Activity: pelvic rest Diet: regular Patient Instructions: Antibiotic Form Patient Language: Emirati Stand Alone Forms: General Discharge Information Follow-up/Referrals: Yeyo Marcus MD [Physician] - 4 Weeks Gianna Cavanaugh, CNM [Certified Nurse Grinding Room Supervisor] - Discharge Medications: Continued ferrous sulfate [Iron (ferrous sulfate)] 325 mg (65 mg iron) tablet 325 mg PO DAILY PNV cmb#95-ferrous fumarate-FA [] 28 mg iron- 800 mcg tablet 1 tablet PO DAILY valacyclovir 500 mg tablet 500 mg PO DAILY Qty: 90 0RF Date of admission: 07/02/24 05:13 Primary Care Provider: An Weller Admitting Provider: Yeyo Marcus Attending physician on admission: Yeyo Marcus Condition: Stable
[2024-07-03 11:57] VITALS: BP 115/75; PULSE 89; RESP 16; TEMP 37.1; O2SAT 95
--- NOTE | 2024-07-03 12:15 | PC.NURSE ---
Called to bedside to assist with waking infant for feeding. was undressed with a clean diaper upon entering room. Mother instructed to do skin to skin and allow baby to rest - she will watch for feeding cues and put infant to breast if feeding cues are noted. Reviewed early feeding cues with parents.
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
--- NOTE | 2024-07-03 14:04 | WPDANLDPN2 ---
Anes-Prog Note L&D Date/Time: 07/03/24 14:04 Comfortable throughout: labor and delivery Neuraxial method: epidural Epidural/Spinal procedure site: tender Neuro status: Neuro function grossly intact. Cardiovascular status: normal Respiratory status: normal Airway patency: baseline Mental status: baseline Post-Op hydration status: normal Vital Signs: Last Vital Signs Temp 37.1 C 07/03/24 11:57 Pulse 89 07/03/24 11:57 Resp 16 07/03/24 11:57 BP 115/75 07/03/24 11:57 Pulse Ox 95 07/03/24 11:57 O2 Del Method Room Air 07/03/24 08:02 Pain score (VAS): 03/14 I/O: Intake & Output 07/02/24 07/03/24 07/03/24 23:59 07:59 15:59 Intake Total 236 Balance 236 Post-procedural complaints: none Patient feedback: Patient satisfied with anesthetic care.
[2024-07-03 19:40] VITALS: BP 105/63; PULSE 86; RESP 18; TEMP 36.4; O2SAT 97
--- NOTE | 2024-07-04 07:48 | P.PNOB_ITS ---
OB - PN: Subj Subjective Date/time seen: 07/04/24 07:48 Interval history: pp day 2 doing well d/c home OB - PN: Obj Data Labs 07/03/24 04:50 OB - PN A/P Plan day: 2 Plan: routine care and discharge home Time Spent With Patient Time: Total time spent is greater than 50% in coordination of care (as documented) at patient's floor/unit and/or counseling patient: Review of Systems 2 Review of Systems: All systems reviewed & are unremarkable except as noted in HPI and below Exam 2 Const: General: cooperative, healthy appearing and comfortable Chest: Chest palpation & inspection: normal inspection of the chest GI: Other: soft
[2024-07-04 08:15] VITALS: BP 100/62; PULSE 72; RESP 16; TEMP 37.1; O2SAT 97
[2024-07-04] MEDS: IBUPROFEN 600 MG TABLET PO (08:54)
[2024-07-04] MEDS: DOCUSATE SODIUM 100 MG CAPSULE PO (08:54)
[2024-07-04] MEDS: MULTIVIT/MIN/PREN/FOL AC/IRON TABLET 1 TAB PO (08:54)
--- NOTE | 2024-07-04 12:10 | PC.NURSE ---
Consulted with mother concerning needs and she shared her ability to independently latch infant. She does have some soreness and blistering on her nipples. She did breastfed her other child. Encouraged her to call out at the next feeding time for a latch check. She is supplementing with formula per her preference. Mother is feeding appropriately for growth of and understands stimulating to eat if needed. Reinforced understanding of milk production, transition of milk, signs of adequate intake, transition of stool, prevention/relief of engorgement, plugged ducts, mastitis, responsive , community resources, and when to call a provider using the resource of the feeding sheet along with the mom and baby guide. [facility] referral sent to [place] office and patient states that she has a breast pump at home. Mother voiced understanding of the information shared, is confident to continue effectively her at home, when to call for assistance, denies any additional assistance or education at this time. Reported to the Primary RN.
--- NOTE | 2024-07-07 16:37 | P.PNOB_ITS ---
OB - Triage/Final Diagnosis Visit Information Date of evaluation: 08/01/24 Reason for evaluation: threatened labor Comments/Additional reasons for admission: I have assessed the risk for this patient, Mirtha Woo, and determined that she would benefit from observation care. Evaluation Laboratory results: Laboratory Tests 07/02/24 07/03/24 05:45 04:50 WBC 7.7 RBC 4.39 Hgb 13.5 12.2 Hct 40.6 38.0 MCV 92.5 MCH 30.8 MCHC 33.3 RDW 12.4 Plt Count 167 MPV 10.9 H Immature Gran % (Auto) 0.5 Neut % (Auto) 71.5 Lymph % (Auto) 17.9 L [place] % (Auto) 8.7 H Eos % (Auto) 0.9 Baso % (Auto) 0.5 Lymph # (Auto) 1.37 [place] # (Auto) 0.7 H Eos # (Auto) 0.1 Baso # (Auto) 0.0 Abs Immat Gran (auto) 0.04 H Absolute Neuts (auto) 5.5 Absolute Nucleated RBC 0.000 Nucleated RBC % 0.0 Syphilis IgG/IgM Ab Negative HIV 1&2 Ab/P24 Ag 4thGn Negative Blood Type A Positive Antibody Screen Negative
== END 2024-07-04 15:05 | disposition home or self-care (01) | DRG 560 ==
LOC: ANHLDR 05:18 → ANHOB2 16:51
PROVIDERS: Advanced Practice Midwife; Admitting Provider Obstetrics & Gynecology; PCP Physician Assistant Medical; Visit Provider Obstetrics & Gynecology
DX: O70.0 First degree perineal laceration during delivery (principal); Z3A.39 39 weeks gestation of pregnancy; Z37.0 Single live birth
CPT/HCPCS: 36415; 85014; 85018; 85025; 86593; 86703; 86850; 86900; 86901; A9270; G0432; J2405; J2590; J2795; J3010; J7120